=== PATIENT | female | born 1950 | race Caucasian/White ===

== ENCOUNTER → 2016-12-09 17:17 | Outpatient (CLI) | payer MEDICARE ==
[2016-10-05 12:00] VITALS: BMI 24.0
[~2016-12-09 17:17] MED LIST: ATIVAN2 MG PO; BAYER CHEWABLE81 MG PO; BENICAR20 MG PO; BRILINTA90 MG PO; CELEXA20 MG PO; CLARITIN 10 MG10 MG PO; COREG 3.1253.125 MG PO; FLUTICASONE PRO16 GM NASAL; HYDROCODON-ACE1 EAC9 PO; LIPITOR80 MG PO; PEPCID20 MG PO; PLAVIX75 MG PO; SAPHRIS SL; SAPHRIS5 MG SL; ULTRAM50 MG PO
== END | disposition home or self-care (01) ==
LOC: D.MAMMO 14:30
DX: Z12.31 Encounter for screening mammogram for malignant neoplasm of breast (principal)

== ENCOUNTER → 2017-01-21 16:51 | Outpatient (CLI) | payer MEDICARE ==
[2016-10-05 12:00] VITALS: BMI 24.0
== END | disposition home or self-care (01) ==
LOC: D.MAMMO 09:00
DX: R92.8 Other abnormal and inconclusive findings on diagnostic imaging of breast (principal)

== ENCOUNTER 2017-03-24 13:13 | Day surgery (SDC) | payer MEDICARE, MEDICAID ==
[~2017-03-24] VITALS: Ht 162.6 cm; Wt 68.2 kg
--- NOTE | ~2017-03-24 | OP ---
PATIENT NAME: VINI CHACON MEDICAL RECORD: [id number] :50 LOCATION:D.OPS ADMISSION DATE: SURGEON: TRU PEREZ DO DATE OF OPERATION: 03/24/2017 DATE OF PROCEDURE: 03/24/2017. PROCEDURE: Colonoscopy with hot forcep polypectomy. INDICATIONS FOR PROCEDURE: Screening colonoscopy, history of colon polyps, chronic constipation. SCOPE: Olympus video pediatric colonoscope. MEDICATIONS: Propofol 180 mg IV. WITHDRAWAL TIME: 15 minutes. ESTIMATED BLOOD LOSS: Minimal. COMPLICATIONS: None. FINDINGS: Informed consent was given. The patient was made comfortable with the above medication. After reaching an adequate level of sedation by slow IV push, the patient was placed on her left side. A digital rectal examination was performed and was normal. The endoscope was then advanced under direct visualization through the anus to the cecum with visualization of the appendiceal orifice and ileocecal valve. The scope was slowly withdrawn and the mucosa was carefully examined. In the transverse colon, there was a single benign appearing, sessile polyp measuring approximately 4-5 mm in size, which was removed in 1 piece with hot forceps. It was completely retrieved. Upon further withdrawal, there was a cluster of approximately 5 hyperplastic-appearing polyps in the sigmoid colon. These were removed with hot forceps as well. Scope was withdrawn back into the rectum and retroflexion was performed. There were no evidence of hemorrhoids. The scope was then withdrawn from the patient. The patient tolerated the procedure well and there were no complications. IMPRESSION: Polyps as described above, both in the transverse colon and sigmoid colon. All polyps were removed with hot forceps. PLAN AND RECOMMENDATIONS: 1. Discharge home when recovery parameters are met. 2. Continue current diet. 3. Continue current medications. 4. Follow up in the GI clinic as needed. 5. Follow up on biopsy specimen results. 6. Recall colonoscopy in 5 years unless pathology dictates otherwise. TRANSINT:[id number] Voice Confirmation ID: [id number] DOCUMENT ID: [id number] OPERATIVE REPORT [id number] VINI CHACON TRU PEREZ DO CC: [id number] DICTATION DATE: 03/24/17 1809 CLINICAL RESOURCE DIRECTOR: 03/25/[address] [facility] 03/24/17 [place] [address]
[2017-03-24 14:18] LABS: BASOPHILS 0.4 % (0-2); EOSINOPHILS 3.1 % (0-7); HEMATOCRIT 45.5 % (36.0-48.0); HEMOGLOBIN 15.2 g/dL (12-16); IMMATURE GRANULOCYTES 0.1 % (0-5); LYMPHOCYTES 32.6 % (15-50); MCH 33.4 pg (26.0-34.0); MCHC 33.4 g/dL (31.0-37.0); MONOCYTES 7.2 % (2-11); NEUTROPHILS 56.6 % (40-80); RBC 4.55 10x6/uL (4.00-5.40); RDW 14.2 % (11.5-14.5); WBC 7.7 10x3/uL (4.8-10.8)
[2017-03-24 14:19] LABS: PLATELET COUNT 179 10x3/uL (130-400)
[2017-03-24 14:34] LABS: ANION GAP 12.2 mmol/L (8-16); CALCIUM 9.7 mg/dL (8.5-10.1); CARBON DIOXIDE 26.8 mmol/L (21.0-32.0); CREATININE - SERUM 1.3 mg/dL (0.6-1.3)
[2017-03-24 14:40] VITALS: Ht 162.6 cm; Wt 68.2 kg
--- NOTE | 2017-03-24 18:24 | NUR ---
1809-RECD TO ROOM FROM GI LAB. RESP WITH EASE. IV PATENT. VOKATHRIN IN TO ROUND/REPORT. 1814-FULL LIQUIDS SERVED.
== END 2017-03-24 18:44 | disposition home or self-care (01) ==
LOC: D.OPS 13:13
PROVIDERS: Anesthesiology
DX: Z12.11 Encounter for screening for malignant neoplasm of colon (principal); D12.3 Benign neoplasm of transverse colon; D12.5 Benign neoplasm of sigmoid colon; K59.09 Other constipation

== ENCOUNTER 2017-07-26 11:48 | Outpatient (CLI) | payer MEDICARE, MEDICAID ==
--- NOTE | ~2017-07-26 | HEMODYNAMI ---
PATIENT:VINI CHACON MEDICAL RECORD: [id number] : 50 LOCATION:DJEREMIAS ADMISSION DATE: 07/26/17 Generatedon:07/26/201715:45 Patient name: VINI CHACON Patient #: [id number] SSN: DO B: 1950 Date of study: 07/26/2017 Page: Of Hemodynamic Procedure Report Patient Data Patient Demographics Procedure consent was obtained First Name: VINI Gender: Female Last Name: INES : 1950 Middle Initial: DUC Age: 67 year(s) Patient #: [id number] Race: Additional ID: [id number] Contact details [address]: [address] [place] [address] [place] State: [place] City: [place] Zip code: [address] Past Medical History History of disease Date Diagnosis Comments PVD Allergies: No known allergies Admission Admission Data Admission Date: 07/26/2017 Admission Time: 11:48 Lab Results Lab Result Date: 07/26/2017 Lab Result Time: 12:25 Biochemistry Name Units Result Min Max BUN mg/dl 23 --(----)-* 7 18 Creatinine mg/dl 1.5 --(----)-* 0.6 1.3 CBC Name Units Result Min Max Hematocrit % 45.3 --(-*--)-- 42 54 Hemoglobin g/dl 15.7 --(--*-)-- 13.5 17.5 Procedure Procedure Types Cath Procedure Miscellaneous Procedures Moderate Sedation up to 15 minutes Peripheral Cath Diagnostic Procedure Cath Peripheral Yqlgu-Frayarb-Eik-Off Procedure Description Procedure Date Procedure Date: 07/26/2017 Procedure Start Time: 15:24 Procedure End Time: 15:45 Procedure Staff Name Function Modesto Butler MD Performing Physician Any Lopez RT Scrub Lai Gomez RN Nurse Aba Matthews RT Monitor Kush Pavon RT Scrub Procedure Data Cath Procedure Fluoroscopy Diagnostic fluoroscopy Total fluoroscopy Time: 1.5 time: 1.5 min min Diagnostic fluoroscopy Total fluoroscopy dose: 77 dose: 77 mGy mGy Contrast Material Contrast Material Type Amount (ml) Isovue 300 91 Entry Location Entry Primary Successful Side Size Upsize Upsize Entry Closure Succes sful Closure Location (Fr) 1 (Fr) 2 (Fr) Remarks Device Remarks Femoral Left 5 Fr Exoseal artery Estimated blood loss: 5 ml Diagnostic catheters Device Type Used For End Catheter Placement Cordis Tempo 5Fr UF Procedure catheter Procedure Complications No complications Procedure Medications Medication Administration Route Dosage 0.9% NaCl I.V. 100 ml/hr Oxygen NC 2 l/min Heparin Flush Bag added to field 2 bags (1000units/500ml NS) Lidocaine 2% added to field 20 Versed I.V. 1 mg Fentanyl I.V. 50 mcg Versed I.V. 1 mg Hemodynamics Rest Heart Rate: 55 (bpm) Snapshots Pre Cath Intra NCS Post Cath Vital Signs Time Heart Resp SPO2 etCO2 [id number] NIBP (mmHg) Rhythm Pain Sedation Rate (ipm) (%) (mmHg) (mmHg) Status Level (bpm) 15:13:31 53 21 100 0 0 170/71(102) NSR 0 (11) 10(A) , No pain 15:18:52 54 17 100 0 0 152/70(100) NSR 0 (11) 10(A) , No pain 15:23:41 52 16 100 0 0 138/58(100) NSR 0 (11) 10(A) , No pain 15:28:26 51 14 99 0 0 122/54(80) NSR 0 (11) 9(A) , No pain 15:33:08 52 14 100 0 0 121/52(93) NSR 0 (11) 9(A) , No pain 15:37:47 51 19 99 0 0 112/48(83) NSR 0 (11) 9(A) , No pain 15:42:26 50 16 99 0 0 123/51(78) NSR 0 (11) 9(A) , No pain Medications Time Medication Route Dose Verified Delivered Reason Notes Effe ctiveness by by 15:13:03 0.9% NaCl I.V. 100 Lai Lai Per ml/hr Patricia ramirez RN RN 15:13:20 Oxygen NC 2 Lai Lai Per l/min Patricia ramirez RN RN 15:13:42 Heparin Flush added 2 Lai Lai used for Bag to bags Lorigan Lorigan procedure (1000units/500ml field RN RN NS) 15:14:09 Lidocaine 2% added 20ml Lai Lai for local to vial Lorigan Lorigan anesthetic field RN RN 15:24:14 Versed I.V. 1 mg Lai Lai for Lorigan Lorigan sedation RN RN 15:24:29 Fentanyl I.V. 50 Lai Lai for mcg Lorigan Lorigan sedation RN RN 15:25:17 Versed I.V. 1 mg Lai Lai for Lorigan Lorigan sedation RN bone density technician Log Time Note 14:56:51 Informed consent obtained and on chart 14:57:23 Diagnostic Cath status Elective 14:57:26 Aba Matthews RT(R) sent for patient. Start room use. 14:57:27 Time tracking: Regular hours 14:57:31 Plan of Care:Hemodynamics will remain stable., Cardiac rhythm will remain stable., Comfort level will be maintained., Respiratory function will remain adequate., Patient/ family verbilizes understanding of procedure., Procedure tolerated without complication., Recovers from procedure without complications.. 14:58:44 H&P Date Dictated: 07/22/2017 Within 30 days and on chart., H&P Addendum completed by physician on day of procedure. (MUST COMPLETE FOR ALL OUTPATIENTS). 15:02:59 Lab Result : Hemoglobin 15.7 g/dl 15:02:59 Lab Result : Hematocrit 45.3 % 15:02:59 Lab Result : BUN 23 mg/dl 15:02:59 Lab Result : Creatinine 1.5 mg/dl 15:03:14 Lab results completed and on chart. 15:03:42 Patient received from Pre/Post Procedure Room to CCL 1 Alert and oriented. Tansferred to table in Supine position. 15:03:42 Warm blankets applied, and brooklynn hugger turned on for patient comfort. 15:03:43 Correct patient and procedure confirmed by team. 15:03:44 ECG and BP/O2 sat monitors applied to patient. 15:12:30 Vital chart was started 15:13:03 0.9% NaCl 100 ml/hr I.V. was administered by Lai Gomez RN; Per physician; 15:13:20 Oxygen 2 l/min NC was administered by Lai Gomez RN; Per physician; 15:13:42 Heparin Flush Bag (1000units/500ml NS) 2 bags added to field was administered by Lai Gomez RN; used for procedure; 15:14:09 Lidocaine 2% 20ml vial added to field was administered by Lai Gomez RN; for local anesthetic; 15:17:25 Pre-procedure instructions explained to patient. 15:17:28 Pre-op teaching completed and patient verbalized understanding. 15:17:29 Family in waiting room. 15:17:31 Patient NPO since Midnight. 15:17:37 Patient allergic to No known allergies 15:17:40 Is the patient allergic to Iodine/contrast media? No. 15:17:42 Is patient on blood thinner?Yes 15:17:46 ACC The patient was administered the following blood thiners within the last 24 hours: ACCBrilinta 15:17:49 Patient diabetic? No. 15:17:58 Previous problem with sedation/anesthesia? No ? 15:18:00 Snore? Yes 15:18:01 Sleep apnea? No 15:18:02 Deviated septum? No 15:18:03 Opens mouth fully? Yes 15:18:04 Sticks out tongue? Yes 15:18:06 Airway obstruction? No ? 15:18:11 Dentures? Yes In tight 15:18:16 Pre procedure: right dorsailis pedis pulse 1+ Palpable, but thready & weak; easily obliterated 15:18:19 Patient pain scale 0/10 ?. 15:18:24 IV patent on arrival in left hand with 0.9% NaCl at [facility]. 15:18:31 Bilateral groins area was prepped with chlora-prep and draped in sterile fashion 15:18:34 Alarms reviewed by R. N. 15:18:34 Sharps counted by scrub and verified by R.N. 15:18:38 Tegaderm 4 x 4 opened to sterile field. 15:18:39 Acist Manifold opened to sterile field. 15:18:40 Acist Hand Control opened to sterile field. 15:18:41 Acist Syringe opened to sterile field. 15:18:41 Bag Decanter opened to sterile field. 15:18:46 Medline Cath Pack opened to sterile field. 15:18:47 Terumo 5Fr [place] Sheath opened to sterile field. 15:18:48 St Jose Roberto 260cm J .035 wire opened to sterile field. 15:19: Baseline sample Acquired. 15:19:05 Rhythm: sinus rhythm :: Full Disclosure recording started 15:: Physician arrived 15:: --------ALL STOP TIME OUT------ 15:19: Final Timeout: patient, procedure, and site verified with staff and physician. All members of the team are in agreement. 15:19:25 Bilateral groins site verified by team. 15:19:30 Physical assessment completed. ASA score P 2 - A patient with mild systemic disease as per Modesto Butler MD. 15::34 Sedation plan: IV Moderate Sedation Versed, Fentanyl 15::39 Zero performed for pressure channel P1 15:24:07 Procedure started. 15:24:14 Versed 1 mg I.V. was administered by Lai Gomez RN; for sedation; 15:24:23 Local anesthetic to left femerol artery with Lidocaine 2% by Modesto Butler MD.INITIAL ACCESS ONLY 15:24:29 Fentanyl 50 mcg I.V. was administered by Lai Gomez RN; for sedation; 15:24:46 A 5 Fr sheath was inserted into the Left Femoral artery 15:25:17 Versed 1 mg I.V. was administered by Lai Gomez RN; for sedation; 15:28:41 A Cordis Tempo 5Fr UF catheter was advanced over the wire and used for Procedure. 15:31:11 Abdominal angiogram w/ runoff was performed. 15:33:27 Right leg runoff performed. 15:38:19 Catheter removed. 15:38:28 Cordis 5Fr Exoseal opened to sterile field. 15:38:38 Sheath removed intact; hemostasis achieved with Exoseal to the Left Femoral artery. 15:38:40 Procedure ended.(Physican Out) 15:41:52 Fluoroscopy time 01.50 minutes. 15:41:55 Flurop Dose total: 77 15:41:55 Fluoroscopy dose: 77 mGy 15:42:00 Contrast amount:Isovue 300 91ml. 15:42:02 Sharps counted by scrub and verified by R.N. 15:42:10 Insertion/operative site no bleeding no hematoma. 15:42:13 Post-op/insertion site Left Femoral artery dressed using a 4 x 4 and Tegaderm. 15:42:18 Post left femerol artery:stable, soft, clean and dry 15:42:29 Post Procedure Pulses reassessed and unchanged 15:42:53 Post-procedure physical assessment completed. ASA score P 2 - A patient with mild systemic disease as per Modesto Butler MD. 15:42:56 Post procedure rhythm: unchanged. 15:42:58 Estimated blood loss: 5 ml 15:42:59 Post procedure instruction explained to patient.Patient verbalizes understanding. 15:43:00 Patient needs reinforcement of post procedure teaching. 15:43:17 Procedure type changed to Cath procedure, Miscellaneous Procedures, Moderate Sedation up to 15 minutes, Peripheral Cath Diagnostic Procedure, Cath Peripheral, Hvpfz-Ygnrwyb-Rub-Off 15:45:21 Procedure and supply charges have been captured, reviewed, submitted and are correct. 15:45:24 Procedure Complication : No complications 15:45:26 Vital chart was stopped 15:45:26 See physician's report for complete and final results. 15:45:29 Report given to Pre/Post Procedure Room. 15:45:31 Patient transfered to Pre/Post Procedure Room with Stretcher. 15:45:33 Procedure ended. 15:45:33 Full Disclosure recording stopped 15:45:39 End room use (Document Last) Device Usage Item Manufacture Quantity Catalog Hospital Part Current Minimal Lot# / Name Number Charge Number Stock Stock Emi mn# Code Tegaderm 1 [id number] [id number] 5 4 x 4 Acist Acist 1 41894 792247 260307 325795 5 Manifold Medical Systems Inc Acist Acist 1 77898 434472 074099 886980 5 Hand Medical Control Systems Inc Acist Acist 1 30376 997746 387754 220738 20 Syringe Medical Systems Inc Bag Microtek 1 2002S 883832 40146 104329 5 Dec[employer]iv[employer] Inc. Medline Cardinal 1 [id number] 680194 47024 322242 5 Cath Health Pack Terumo Terumo 1 [id number] 572939 261315 586997 [address] [facility] Jose Roberto 1 252517 906066 885167 864780 30 260cm J .035 wire Cordis Cardinal 1 [id number] 702444 800537 274857 10 [facility] Health 5Fr UF catheter Cordis Cardinal 1 EX500 910826 844488 673126 10 5Fr Health Exoseal Signature Audit Newman Stage Time Signature Unsigned Intra-Procedure 07/26/2017 Aba Matthews 3:45:56 PM RT(R) Signatures Monitor : Aba Matthews RT Signature : Date : Time : [address] [address]
[2017-07-26] MEDS ORDERED: CELEXA40 MG PO (12:11)
[2017-07-26] MEDS ORDERED: BRILINTA90 MG PO (12:11)
[2017-07-26] MEDS ORDERED: BENICAR20 MG PO (12:12)
[2017-07-26 12:20] VITALS: BP 132/53; BMI 25.8
[2017-07-26 12:30] LABS: BASOPHILS 0.4 % (0-2); EOSINOPHILS 4.6 % (0-7); HEMATOCRIT 45.3 % (36.0-48.0); HEMOGLOBIN 15.7 g/dL (12-16); IMMATURE GRANULOCYTES 0.6 % (0-5); LYMPHOCYTES 29.1 % (15-50); MCH 34.1 pg (26.0-34.0); MCHC 34.7 g/dL (31.0-37.0); MCV 98.5 fL (80.0-100.0); MEAN PLATELET VOLUME 10.7 fL (7.4-10.4); MONOCYTES 9.4 % (2-11); NEUTROPHILS 55.9 % (40-80); PLATELET COUNT 202 10x3/uL (130-400); RDW 15.4 % (11.5-14.5)
[2017-07-26 12:43] LABS: ANION GAP 12.5 mmol/L (8-16); CALCIUM 9.5 mg/dL (8.5-10.1); CARBON DIOXIDE 26.6 mmol/L (21.0-32.0); CREATININE - SERUM 1.5 mg/dL (0.6-1.3); POTASSIUM - SERUM 4.1 mmol/L (3.5-5.1)
--- NOTE | 2017-07-26 16:00 | NUR ---
1600 RECEIVED PT FROM CLINICAL TRIAL HEAD. PT IS DROWSY, DENIES ANY C/O PAIN OR NAUSEA. DRESSING TO LEFT GROIN IS CDI. RIGHT FOOT WARM, CAP REFILL IS BRISK. LEFT AKA. IV PATENT AND INFUSING PER ORDERS. PT INSTRUCTED ON BEDREST WITH HOB FLAT AND VERBALIZES UNDERSTANDING. MOTHER AT BEDSIDE, CALL LIGHT IN REACH.
--- NOTE | 2017-07-26 16:45 | NUR ---
1645 PO FLUIDS SERVED. DRESSING CDI, AREA SOFT AND NONTENDER. MOTHER AT BEDSIDE, CALL LIGHT IN REACH.
--- NOTE | 2017-07-26 17:00 | NUR ---
1700 PT DENIES MISSAEL C/O. DRESSING CDI TO LEFT GROIN. MOTHER AT BEDSIDE, CALL LIGHT IN REACH.
--- NOTE | 2017-07-26 17:22 | NUR ---
3741 PT DENIES ANY C/O. NO CHANGE IN ASSESSMENT. CONTINUE PLAN OF CARE.
--- NOTE | 2017-07-26 17:40 | NUR ---
1739 HOB ELEVATED 45 DEGREES, SANDWICH AND PO FLUIDS SERVED.
--- NOTE | 2017-07-26 18:18 | NUR ---
1800 PT HAS TOLERATED SANDWICH AND PO FLUIDS WITH NO C/O NAUSEA. IV DC'D WITH CATH INTACT. DRESSING CDI. PT DRESSING FOR DC TO HOME. 181 ASSISTED PT TO THE BATHROOM, PT VOIDED QS. DRESSING REMAINS CDI 1814 DC INSTRUCTIONS REVIEWED WITH PT AND HER MOTHER WHO VERBALIZE UNDERSTANDING. PT ESCORTED TO PRIVATE AUTO VIA WC BY NURSE WTIH MOTHER DRIVING HER HOME.
--- NOTE | 2017-07-28 14:50 | OP ---
PATIENT NAME: VINI CHACON MEDICAL RECORD: [id number] :50 LOCATION:D.CAT ADMISSION DATE: SURGEON: NIKOLE FUENTES MD DATE OF OPERATION: 07/26/2017 PROCEDURE: Right only aorto-fem runoff. CATHETER: A 5-Kyrgyz sheath. The procedure was well tolerated. The patient returned to [facility]. Sheath removed and ExoSeal device placed. FINDINGS: Right common iliac shows widely patent stent, right superficial femoral shows what appears to be severe diffuse stenosis up to the area of previous stenting. At the proximal one-third of the stent, this appears to be totally occluded. The distal vasculature appears at the popliteal which has some stenosis proximally but good 2-vessel runoff distally. IMPRESSION: Severe occlusion right superficial femoral artery. We will have the films reviewed by Dr. Li for possible percutaneous versus other intervention from his standpoint. TRANSINT:[id number] Voice Confirmation ID: [id number] DOCUMENT ID: [id number] NIKOLE FUENTES MD at 1450 CC: [id number] DICTATION DATE: 07/26/17 1549 Y[address] CRANE OPERATOR: 07/26/172053 DEP CLI 07/26/[address] [facility] [address] [place] [address]
== END 2017-07-26 18:15 | disposition home or self-care (01) ==
LOC: D.CATH 11:48
PROVIDERS: Internal Medicine Interventional Cardiology
DX: I70.211 Atherosclerosis of native arteries of extremities with intermittent claudication, right leg (principal); Z01.812 Encounter for preprocedural laboratory examination

== ENCOUNTER 2017-09-15 05:39 | Outpatient (CLI) | payer MEDICARE, MEDICAID ==
[~2017-09-15] VITALS: Ht 162.6 cm; Wt 68.2 kg
--- NOTE | ~2017-09-15 | HEMODYNAMI ---
PATIENT:VINI CHACON MEDICAL RECORD: [id number] : 50 LOCATION:WERO ADMISSION DATE: 09/15/17 Generatedon:09/15/20179:38 Patient name: VINI CHACON Patient #: [id number] SSN: DO B: 1950 Date of study: 09/15/2017 Page: Of Hemodynamic Procedure Report Patient Data Patient Demographics Procedure consent was obtained First Name: VINI Gender: Female Last Name: INES : 1950 Middle Initial: DUC Age: 67 year(s) Patient #: [id number] Race: Additional ID: [id number] Contact details Address: [facility] [employer] State: [place] City: [place] Zip code: [address] Past Medical History History of disease Date Diagnosis Comments PVD Allergies: No known allergies Admission Admission Data Admission Date: 09/15/2017 Admission Time: 5:39 Procedure Procedure Types Cath Procedure Peripheral Cath Diagnostic Procedure Miscellaneous Procedure Description Procedure Date Procedure Date: 09/15/2017 Procedure Start Time: 8:34 Procedure Staff Name Function Giuseppe Ayala MD Performing Physician David Jane RT Monitor Loraine Harper RT Scrub Germania Olvera RN Nurse Procedure Data Cath Procedure Fluoroscopy Diagnostic fluoroscopy Total fluoroscopy Time: 1.5 time: 1.5 min min Diagnostic fluoroscopy Total fluoroscopy dose: 55 dose: 55 mGy mGy Contrast Material Contrast Material Type Amount (ml) Isovue 300 15 Entry Location Entry Primary Successful Side Size Upsize Upsize Entry Closure Morrison ccessful Closure Location (Fr) 1 (Fr) 2 (Fr) Remarks Device Remarks Femoral Right 5 Fr Manual artery Compression Procedure Medications Medication Administration Route Dosage Nitroglycerin IC/IA I.A. 200 Hemodynamics Rest Heart Rate: 51 (bpm) Snapshots Pre Cath Intra NCS Post Cath Vital Signs Time Heart Resp SPO2 etCO2 NIBP (mmHg) Rhythm Pain Sedation Rate (ipm) (%) (mmHg) Status Level (bpm) 8:11:41 52 8 100 34 181/75(142) NSR 0 (11) 10(A) , No pain 8:16:19 49 14 100 28.7 181/63(109) NSR 0 (11) 10(A) , No pain 8:20:42 65 13 96 37.1 142/51(99) NSR 0 (11) 10(A) , No pain 8:25:08 56 15 100 15.1 122/47(92) NSR 0 (11) 10(A) , No pain 8:29:30 55 14 100 15.9 110/36(78) NSR 0 (11) 10(A) , No pain 8:33:48 54 13 100 15.9 104/38(81) NSR 0 (11) 10(A) , No pain 8:38:47 54 13 100 19.6 Measuring NSR 0 (11) 10(A) , No pain 8:39:12 55 13 100 15.9 99/51(80) NSR 0 (11) 10(A) , No pain 8:43:26 57 14 100 14.3 96/41(68) NSR 0 (11) 10(A) , No pain 8:47:40 56 14 100 12.8 102/41(67) NSR 0 (11) 10(A) , No pain 8:51:54 60 14 100 17.4 116/45(79) NSR 0 (11) 10(A) , No pain 8:56:14 58 14 100 13.6 105/36(74) NSR 0 (11) 10(A) , No pain 9:00:28 57 21 99 11.3 91/39(75) NSR 0 (11) 10(A) , No pain 9:04:33 59 4 99 10.6 105/51(71) NSR 0 (11) 10(A) , No pain 9:08:48 61 12 100 9.8 113/44(72) NSR 0 (11) 10(A) , No pain 9:13:05 60 14 99 8.3 95/39(70) NSR 0 (11) 10(A) , No pain 9:17:15 62 12 99 12.8 102/45(66) NSR 0 (11) 10(A) , No pain 9:21:29 62 12 100 13.6 100/42(72) NSR 0 (11) 10(A) , No pain 9:26:29 58 22 100 10.6 Measuring NSR 0 (11) 10(A) , No pain 9:26:39 57 18 100 11.3 120/59(84) NSR 0 (11) 10(A) , No pain 9:31:38 55 18 100 28 Measuring NSR 0 (11) 10(A) , No pain 9:31:46 56 18 100 28 144/66(98) NSR 0 (11) 10(A) , No pain 9:36:02 0 No Cuff NSR 0 (11) 10(A) , No pain Medications Time Medication Route Dose Verified Delivered Reason Notes Effectiven ess by by 8:56:49 Nitroglycerin I.A. 200MCG Giuseppe Chin IC/Jamie Bhardwaj MD MD Procedure Log Time Note 7:59:33 Germania Olvera RN sent for patient. Start room use. 7:59:44 Time tracking: Regular hours 7:59:48 Plan of Care:Hemodynamics will remain stable., Cardiac rhythm will remain stable., Comfort level will be maintained., Respiratory function will remain adequate., Patient/ family verbilizes understanding of procedure., Procedure tolerated without complication., Recovers from procedure without complications.. 7:59:53 Patient received from Outpatients to [facility] 3 Alert and oriented. Tansferred to table in Supine position. 8:00:04 Correct patient and procedure confirmed by team. 8:00:09 Signed procedure consent form obtained from patient. 8:00:10 ECG and BP/O2 sat monitors applied to patient. 8:00:13 Full Disclosure recording started 8:00:13 8:01:36 H&P Date Dictated: 09/15/2017 Within 30 days and on chart.. 8:01:37 Pre-procedure instructions explained to patient. 8:01:38 Pre-op teaching completed and patient verbalized understanding. 8:01:41 8:01:57 SEE ANESTHESIA NOTE FOR PRE PROCEDURE TIVA 8:10:19 Vital chart was started 8:10:20 Baseline sample Acquired. 8:14:22 Pre procedure: right dorsailis pedis pulse None 8:14:29 Pre procedure: right posterior tibial pulse Doppler 8:14:34 Alarms reviewed by R. N. 8:14:35 Sharps counted by scrub and verified by R.N. 8:14:43 Patient pain scale 0/10 NO PAIN. 8:14:49 IV patent on arrival in left hand with 0.9% NaCl at [facility]. 8:18:42 Use device set IR Diagnostic 8:18:43 Acist Syringe opened to sterile field. 8:18:43 Acist Hand Control opened to sterile field. 8:18:44 Acist Manifold opened to sterile field. 8:18:44 Bag Decanter opened to sterile field. 8:18:45 Sterile Angiographic Pack opened to sterile field. 8:32:44 Family in patients room. 8:32:47 Patient NPO since Midnight. 8:33:02 Right groin area was prepped with chlora-prep and draped in sterile fashion 8:33:11 Physician arrived 8:33:12 --------ALL STOP TIME OUT------ 8:33:13 Final Timeout: patient, procedure, and site verified with staff and physician. All members of the team are in agreement. 8:33:15 Right groin site verified by team. 8:33:21 Sedation plan: TIVA Medication:Propofol 8:33:36 Baseline sample Acquired. 8:34:23 Procedure started. 8:34:35 Local anesthetic to right femoral artery with Lidocaine 1% by Giuseppe Ayala MD.INITIAL ACCESS ONLY 8:35:01 A 5 Fr sheath was inserted into the Right Femoral artery 8:48:15 Terumo 5FR ANGLED 65CM glide catheter opened to sterile field. 8:48:15 Micropuncture VSI 4FR kit opened to sterile field. 8:48:16 Terumo 5Fr [place] Sheath opened to sterile field. 8:48:17 Cook DOC .035 guide wire opened to sterile field. 8:49:41 Manan ANAYA 180 guide wire opened to sterile field. 8:56:49 Nitroglycerin IC/IA 200MCG I.A. was administered by Giuseppe Ayala MD; ; 9:03:55 Procedure ended.(Physican Out) 9:04:05 Sheath removed intact; hemostasis achieved with Manual Compression to the Right Femoral artery. 9:06:29 Fluoroscopy time 01.50 minutes. 9:06:32 Flurop Dose total: 55 9:06:32 Fluoroscopy dose: 55 mGy 9:06:43 Contrast amount:Isovue 300 15ml. 9:06:45 Sharps counted by scrub and verified by R.N. 9:06:48 Insertion/operative site no bleeding no hematoma. 9:06:52 Post-op/insertion site Right Femoral artery dressed using a 4 x 4 and Tegaderm. 9:06:56 Post right femoral artery:stable 9:06:58 Post Procedure Pulses reassessed and unchanged 9:07:13 Post procedure instruction explained to patient.Patient verbalizes understanding. 9:07:15 Procedure and supply charges have been captured, reviewed, submitted and are correct. 9:37:23 Report given to Outpatients. 9:37:27 Patient transfered to Outpatients with Stretcher. 9:38:32 Vital chart was stopped Device Usage Item Name Manufacture Quantity Catalog Hospital Part Current Minima l Lot# / Number Charge Number Stock Stock Serial# Code Acist Syringe Acist 1 36646 [id number] 255235 655197 20 Medical Systems Inc Acist Hand Acist 1 61598 596295 909331 661076 5 Control Medical Systems Inc Acist Acist 1 87220 509363 432681 515650 5 Manifold Medical Systems Inc Bag Decanter Microtek 1 2002S 941537 03418 778584 5 Medical Inc. Sterile Cardinal 1 [id number] 084678 955990 5 Angiographic Health Pack Terumo 5FR Terumo 1 [id number] 718230 490618 5 ANGLED 65CM glide catheter Micropuncture VSI VASCULAR 1 7266V 512716 157961 5 VSI 4FR kit SOLUTIONS Terumo 5Fr Terumo 1 [id number] 651922 230193 432797 40 [place] Sheath Cook DOC .035 [facility] 1 [id number] 127386 175388 5 1089921 guide wire Cook [facility] 1 [id number] 031910 007234 5 [id number] 180 guide wire Signature Audit [place] Stage Time Signature Unsigned Intra-Procedure 09/15/2017 David 9:38:28 AM Lucinda RT (R) (CV) Signatures Monitor : David Signature : Lucinda RT Date : Time : [id number] [place] [address]
[~2017-09-15 05:39] MED LIST changes: +CELEXA40 MG PO
[2017-09-15 06:19] LABS: BASOPHILS 0.4 % (0-2); EOSINOPHILS 4.5 % (0-7); HEMATOCRIT 43.4 % (36.0-48.0); HEMOGLOBIN 14.5 g/dL (12-16); IMMATURE GRANULOCYTES 0.5 % (0-5); LYMPHOCYTES 29.4 % (15-50); MCH 33.7 pg (26.0-34.0); MCHC 33.4 g/dL (31.0-37.0); MCV 100.9 fL (80.0-100.0); MEAN PLATELET VOLUME 11.5 fL (7.4-10.4); MONOCYTES 8.3 % (2-11); NEUTROPHILS 56.9 % (40-80); PLATELET COUNT 214 10x3/uL (130-400); RDW 14.4 % (11.5-14.5); WBC 8.2 10x3/uL (4.8-10.8)
[2017-09-15 06:24] VITALS: BP 155/65; Ht 162.6 cm; Wt 68.2 kg
[2017-09-15 06:33] LABS: APTT 24.9 SECONDS (22.8-39.4); INR 0.91 (0.85-1.17); PROTIME 12.1 SECONDS (11.6-15.0)
[2017-09-15 06:35] LABS: ANION GAP 15.7 mmol/L (8-16); CALCIUM 9.7 mg/dL (8.5-10.1); CREATININE - SERUM 1.3 mg/dL (0.6-1.3); POTASSIUM - SERUM 3.7 mmol/L (3.5-5.1)
== END 2017-09-15 15:45 | disposition home or self-care (01) ==
LOC: D.OPS 05:39 → D.RAD 13:00 → D.OPS 13:00
PROVIDERS: General Practice
DX: I70.201 Unspecified atherosclerosis of native arteries of extremities, right leg (principal); I70.92 Chronic total occlusion of artery of the extremities; F17.200 Nicotine dependence, unspecified, uncomplicated; Z89.512 Acquired absence of left leg below knee; Z01.812 Encounter for preprocedural laboratory examination

== ENCOUNTER → 2017-09-21 12:16 | Outpatient (CLI) | payer MEDICARE, MEDICAID ==
[2017-09-15 06:24] VITALS: BMI 25.8
== END | disposition home or self-care (01) ==
LOC: D.CT 12:16
DX: I73.9 Peripheral vascular disease, unspecified (principal)

== ENCOUNTER 2017-09-29 09:08 | Outpatient (CLI) | payer MEDICARE, MEDICAID ==
[~2017-09-29] VITALS: Ht 162.6 cm; Wt 68.2 kg
--- NOTE | ~2017-09-29 | HEMODYNAMI ---
PATIENT:VINI CHACON MEDICAL RECORD: [id number] : 50 LOCATION:[facility] ADMISSION DATE: 09/29/17 Generatedon:09/29/201717:16 Patient name: VINI CHACON Patient #: [id number] SSN: DO B: 1950 Date of study: 09/29/2017 Page: Of Hemodynamic Procedure Report Patient Data Patient Demographics Procedure consent was obtained First Name: VINI Gender: Female Last Name: INES : 1950 Middle Initial: DUC Age: 67 year(s) Patient #: [id number] Race: Additional ID: [id number] Contact details Address: [facility] State: [place] City: [place] Zip code: [address] Past Medical History History of disease Date Diagnosis Comments PVD Allergies: No known allergies Admission Admission Data Admission Date: 09/29/2017 Admission Time: 9:08 Procedure Procedure Types Cath Procedure Peripheral Cath Diagnostic Procedure Miscellaneous Procedure Description Procedure Date Procedure Date: 09/29/2017 Procedure Start Time: 14:30 Procedure Staff Name Function Giuseppe Ayala MD Performing Physician David Jane RT Monitor Loraine Harper RT Scrub Germania Olvera RN Nurse Edilson Nuno MD Additional personnel Procedure Data Cath Procedure Fluoroscopy Diagnostic fluoroscopy Total fluoroscopy Time: time: 19.3 min 19.3 min Diagnostic fluoroscopy Total fluoroscopy dose: 457 dose: 457 mGy mGy Entry Location Entry Primary Successful Side Size Upsize Upsize Entry Closure Succes sful Closure Location (Fr) 1 (Fr) 2 (Fr) Remarks Device Remarks Brachial Left 5 Fr 6 Fr artery Long Diagnostic catheters Device Type Used For End Catheter Placement Merit Impress KA 2 5Fr 40CM catheter Merit ULTRA BOLUS FLUSH 5Fr 65CM catheter Procedure Medications Medication Administration Route Dosage Heparin Flush Bag added to field 2 bags (1000units/500ml NS) Heparin Flush Bag added to field 1 bags (1000units/500ml NS) Lidocaine 1% added to field 20 Heparin Bolus I.V. 5000 units Hemodynamics Rest Heart Rate: 54 (bpm) Snapshots Pre Cath Intra NCS Post Cath Vital Signs Time Heart Resp SPO2 etCO2 NIBP (mmHg) Rhythm Pain Sedation Rate (ipm) (%) (mmHg) Status Level (bpm) 14:06:59 54 25 100 27.1 Measuring NSR 0 (11) 10(A) , No pain 14:07:13 52 33 100 24.1 179/63(96) NSR 0 (11) 10(A) , No pain 14:11:41 63 23 100 22.6 167/69(98) NSR 0 (11) 10(A) , No pain 14:16:04 70 9 100 12.8 139/62(96) NSR 0 (11) 10(A) , No pain 14:20:24 59 11 100 30.2 138/58(85) NSR 0 (11) 10(A) , No pain 14:24:44 58 17 100 31.7 134/52(86) NSR 0 (11) 10(A) , No pain 14:29:04 57 11 100 30.9 131/55(79) NSR 0 (11) 10(A) , No pain 14:33:26 56 12 100 31.6 127/47(68) NSR 0 (11) 10(A) , No pain 14:37:48 59 11 100 30.9 124/33(36) NSR 0 (11) 10(A) , No pain 14:42:08 54 21 99 31.7 129/42(90) NSR 0 (11) 10(A) , No pain 14:46:29 56 11 99 30.9 131/51(90) NSR 0 (11) 10(A) , No pain 14:50:49 55 17 99 28.6 124/48(95) NSR 0 (11) 10(A) , No pain 14:55:09 56 16 100 32.4 115/45(78) NSR 0 (11) 10(A) , No pain 14:59:13 56 13 99 32.4 107/56(83) NSR 0 (11) 10(A) , No pain 15:03:22 56 17 99 38.5 122/55(95) NSR 0 (11) 10(A) , No pain 15:07:41 58 11 98 33.9 122/46(80) NSR 0 (11) 10(A) , No pain 15:11:57 57 10 98 35.4 114/53(80) NSR 0 (11) 10(A) , No pain 15:16:13 56 11 98 32.4 121/47(84) NSR 0 (11) 10(A) , No pain 15:20:29 58 13 98 35.4 118/53(76) NSR 0 (11) 10(A) , No pain 15:24:43 59 16 99 33.9 129/58(93) NSR 0 (11) 10(A) , No pain 15:29:01 58 11 99 33.9 139/56(81) NSR 0 (11) 10(A) , No pain 15:33:21 60 11 99 33.1 147/59(118) NSR 0 (11) 10(A) , No pain 15:37:45 59 10 98 33.9 139/51(93) NSR 0 (11) 10(A) , No pain 15:42:07 58 10 98 33.2 142/53(86) NSR 0 (11) 10(A) , No pain 15:46:32 58 10 98 34.6 133/51(100) NSR 0 (11) 10(A) , No pain 15:50:47 58 11 98 33.9 143/62(93) NSR 0 (11) 10(A) , No pain 15:55:10 57 11 98 34.6 130/55(97) NSR 0 (11) 10(A) , No pain 15:59:28 58 10 98 34.7 133/54(85) NSR 0 (11) 10(A) , No pain 16:03:48 57 11 99 33.9 147/53(97) NSR 0 (11) 10(A) , No pain 16:08:12 58 12 99 32.4 143/59(99) NSR 0 (11) 10(A) , No pain 16:12:39 57 12 98 31.7 158/47(92) NSR 0 (11) 10(A) , No pain 16:17:07 57 12 99 32.4 174/60(100) NSR 0 (11) 10(A) , No pain 16:21:39 57 11 98 32.4 141/54(95) NSR 0 (11) 10(A) , No pain 16:25:59 57 11 98 33.2 147/56(96) NSR 0 (11) 10(A) , No pain 16:30:24 58 10 98 33.9 149/58(89) NSR 0 (11) 10(A) , No pain 16:34:36 56 11 99 34.6 133/63(102) NSR 0 (11) 10(A) , No pain 16:39:35 63 12 30.9 Measuring NSR 0 (11) 10(A) , No pain 16:39:55 62 14 29.4 155/67(90) NSR 0 (11) 10(A) , No pain 16:44:17 62 13 100 23.4 150/73(132) NSR 0 (11) 10(A) , No pain 16:49:16 63 17 100 26.4 Measuring NSR 0 (11) 10(A) , No pain 16:49:18 63 17 100 26.3 140/97(114) NSR 0 (11) 10(A) , No pain 16:53:34 61 12 100 26.4 150/72(114) NSR 0 (11) 10(A) , No pain 16:58:33 62 12 30.1 Measuring NSR 0 (11) 10(A) , No pain 16:58:58 65 12 100 24.9 160/66(100) NSR 0 (11) 10(A) , No pain 17:03:28 59 12 100 28.6 148/53(101) NSR 0 (11) 10(A) , No pain 17:08:27 59 18 100 24.8 Measuring NSR 0 (11) 10(A) , No pain 17:08:40 59 17 100 27.1 157/68(103) NSR 0 (11) 10(A) , No pain 17:13:00 60 16 100 18.1 136/80(116) NSR 0 (11) 10(A) , No pain Medications Time Medication Route Dose Verified Delivered Reason Notes Ef fectiveness by by 14:06:12 Heparin Flush added 2 Bag to bags (1000units/500ml field NS) 14:06:28 Heparin Flush added 1 Bag to bags (1000units/500ml field NS) 14:06:50 Lidocaine 1% added 20ml Germania Chin to vial Wade Ayala MD field RN 15:20:07 Heparin Bolus I.V. 5000 Giuseppe Hanody for units Wade Ayala RN antiplatelet therapy Procedure Log Time Note 13:48:36 David Jane RT (R) (CV) sent for patient. Start room use. 13:48:40 BRENTON HERE FROM ANESTHESIA 13:48:48 Time tracking: Regular hours 13:48:54 Plan of Care:Hemodynamics will remain stable., Cardiac rhythm will remain stable., Comfort level will be maintained., Respiratory function will remain adequate., Patient/ family verbilizes understanding of procedure., Procedure tolerated without complication., Recovers from procedure without complications.. 13:49:02 Patient received from CVICU to IR Alert and oriented. Tansferred to table in Supine position. 13:49:04 Correct patient and procedure confirmed by team. 13:49:05 Warm blankets applied, and brooklynn hugger turned on for patient comfort. 13:49:11 Signed procedure consent form obtained from patient. 13:49:13 ECG and BP/O2 sat monitors applied to patient. 13:50:07 SEE ANESTHESIA NOTE FOR PRE PROCEDURE TIVA 13:52:07 Use device set IR Diagnostic 13:52:10 Sterile Angiographic Pack opened to sterile field. 13:52:10 Bag Decanter (2002S) opened to sterile field. 13:52:11 ACIST Manifold (12010) opened to sterile field. 13:52:12 ACIST Hand Control (47481) opened to sterile field. 13:52:15 ACIST Syringe (07720) opened to sterile field. 13:52:17 TUBING Contrast Injection High Pressure (ETR882U) opened to sterile field. 13:52:18 TUBING Contrast Injection High Pressure (BPK007Y) opened to sterile field. 13:57:58 Left Arm area was prepped with chlora-prep and draped in sterile fashion 13:58:01 Sharps counted by scrub and verified by R.N. 13:58:02 Alarms reviewed by R. N. 14:05:09 Vital chart was started 14:05:10 Baseline sample Acquired. 14:06:12 Heparin Flush Bag (1000units/500ml NS) 2 bags added to field was administered by ; ; 14:06:28 Heparin Flush Bag (1000units/500ml NS) 1 bags added to field was administered by ; ; 14:06:50 Lidocaine 1% 20ml vial added to field was administered by Giuseppe Ayala MD; ; 14:29:27 Physician arrived 14:: --------ALL STOP TIME OUT------ 14:: Final Timeout: patient, procedure, and site verified with staff and physician. All members of the team are in agreement. 14:29:32 Left Arm site verified by team. 14:29:37 Sedation plan: TIVA Medication:Propofol 14:30:02 Procedure started. 14:30:02 Full Disclosure recording started 14:30:08 Local anesthetic to left arm with Lidocaine 1% by Giuseppe Ayala MD.INITIAL ACCESS ONLY 14:30:19 A 5 Fr sheath was inserted into the Left Brachial artery 14:30:24 SHEATH 5FR Crosby (ZJS191) opened to sterile field. 14:30:24 Cook DOC .035 guide wire opened to sterile field. 14:30:25 Micropuncture VSI 4FR kit opened to sterile field. 14:32:15 Terumo 5FR ANGLED 100CM glide catheter opened to sterile field. 14:40:38 Cook ANAYA 260 guide wire opened to sterile field. 14:44:45 A Merit Impress KA 2 5Fr 40CM catheter was advanced over the wire and used for . 14:44:46 Terumo ANGLE 180L glide wire opened to sterile field. 14:47:05 Terumo 5FR ANGLED 65CM glide catheter opened to sterile field. 14:47:07 TORQUE DEVICE PLASTIC .038 ( TD01) opened to sterile field. 14:51:18 Terumo ANGLE 260cm glide wire opened to sterile field. 14:51:30 A Merit ULTRA BOLUS FLUSH 5Fr 65CM catheter was advanced over the wire and used for . 15:09:53 Cordis 5Fr Crosby Destination sheath opened to sterile field. 15:11:59 Trailblazer 0.035 catheter opened to sterile field. 15:16:[address] 260 .035 glide wire opened to sterile field. 15:20:07 Heparin Bolus 5000 units I.V. was administered by Germania Olvera RN; for antiplatelet therapy; 15:22:34 Cook RAABE 6FR. 90cm guide sheath opened to sterile field. 15:22:42 Sheath upsized to a 6 Fr Long. 15:25:09 CHOICE PT Extra Support J 300cm guide wire ([id number]) opened to sterile field. 15:36:38 CXI SUPPORT .035 135 CM STR catheter opened to sterile field. 15:43:48 INFLATOR Merit BasixCompak (JI4685) opened to sterile field. 15:44:12 Inflation number: 1 A Saber 3.0 X 200 X 150 balloon was prepped and advanced across the Undefined1, then inflated 15:52:51 Inflation number: 2 A IN.PACT Admiral 4 x 150 x 130 DCB balloon ([id number]) was prepped and advanced across the Undefined1, then inflated 15:59:41 Timer 1 started at 3:59 PM, stopped at 3:59 PM, duration 00:00:02 sec. 16:01:48 Inflation number: 3 A IN.PACT Admiral 4 x 150 x 130 DCB balloon ([id number]) was prepped and advanced across the Undefined1, then inflated to 0 YUMI for 0:00 (min:sec). 16:08:14 Inflation number: 4 A IN.PACT Admiral 4 x 80 x 130 DCB Balloon ([id number]) was prepped and advanced across the Undefined1, then inflated to 0 YUMI for 0:00 (min:sec). 16:19:46 Inflation number: 5 A Saber 3.0 X 4 X 150 balloon was prepped and advanced across the Undefined1, then inflated 16:31:44 Procedure ended.(Physican Out) 16:32:13 Fluoroscopy time 19.30 minutes. 16:32:18 Fluoroscopy dose: 457 mGy 16:32:18 Flurop Dose total: 457 16:32:21 Sharps counted by scrub and verified by R.N. 16:32:33 SEE ANESHESIA NOTE FOR POST PROCEDURE TIVA 16:32:44 Post-op/insertion site Left Brachial artery dressed using a 4 x 4 and Tegaderm. 16:32:49 Post right brachial artery:stable 17:15:20 Post procedure: right dorsailis pedis pulse Doppler. 17:15:25 Post procedure: right posterior tibial pulse Doppler. 17:15:26 Procedure and supply charges have been captured, reviewed, submitted and are correct. 17:15:28 Report given to Outpatients. 17:15:35 Patient transfered to Outpatients with Bed. 17:16:06 Vital chart was stopped Intervention Summary Intervention Notes Time ActionType Lesion and Equipment Used Action# Pressure Duration Attributes 15:44:12 Inflate Undefined1 Saber 3.0 X 1 0 00:00 balloon 200 X 150 balloon 15:52:51 Inflate Undefined1 IN.PACT 2 0 00:00 balloon Admiral 4 x 150 x 130 DCB balloon ([id number]) 16:01:48 Inflate Undefined1 IN.PACT 3 0 00:00 balloon Admiral 4 x 150 x 130 DCB balloon ([id number]) 16:08:14 Inflate Undefined1 IN.PACT 4 0 00:00 balloon Admiral 4 x 80 x 130 DCB Balloon ([id number]) 16:19:46 Inflate Undefined1 Saber 3.0 X 4 5 0 00:00 balloon X 150 balloon Device Usage Item Name Manufacture Quantity Catalog Number Hospital Part Current M inimal Lot# / Charge Number Stock Stock Serial# Code Sterile Cardinal 1 [id number] 607274 838187 5 Angiographic Health Pack Bag Decanter Microtek 1 468193 08473 591322 5 () Medical Inc. ACIST Manifold Acist 1 91224 589398 444293 868782 5 (31756) Medical Systems Inc ACIST Hand Acist 1 08848 452330 947560 562782 5 Control Medical (66612) Systems Inc ACIST Syringe Acist 1 89919 186917 867677 735880 2 0 (51394) Medical Systems Inc TUBING Merit 2 [id number] 913296 476201 332863 5 Contrast Medical Injection High Pressure (YWK584V) SHEATH 5FR Terumo 1 HKP661 612089 674456 792810 4 0 Crosby (XTJ393) Retail Derivatives Trader DOC .035 Retail Derivatives Trader Medical 1 V27718 498513 963370 5 4234033 guide wire Micropuncture VSI VASCULAR 1 7266V 139337 263173 5 VSI 4FR kit SOLUTIONS Terumo 5FR Terumo 1 CG508 970818 00828 415297 4 ANGLED 100CM glide catheter Cook ANAYA 260 Cook Medical 1 E53153 790933 792995 5 2669372 guide wire Merit Impress Merit 1 55611NT0 256146 723050 5 KA 2 5Fr 40CM Medical catheter Terumo ANGLE Terumo 1 NG2765 422937 966185 339848 5 180L glide wire Terumo 5FR Terumo 1 CG507 477707 734957 5 ANGLED 65CM glide catheter TORQUE DEVICE Vaughn 1 TD01 720745 688916 391964 5 PLASTIC .038 ( Scientific TD01) Terumo ANGLE Terumo 1 MU0185 570972 907879 421098 5 260cm glide wire Merit ULTRA Merit 1 [id number]-YQ 413513 457115 5 BOLUS FLUSH Medical 5Fr 65CM catheter Cordis 5Fr Cardinal 1 01-65040 956006 24955 607682 5 Crosby Health Destination sheath Trailblazer Medtronic 1 ASC-035-135 036198 59520 076867 5 0.035 catheter Cook Cook Medical 1 E20442 962374 370209 850636 5 388[address] 260 .035 glide wire Cook RAABE Cook Medical 1 B49371 668445 527044 5 6FR. 90cm guide sheath CHOICE PT Vaughn 1 [id number] 036804 195171 784482 5 [id number] Extra Support Scientific J 300cm guide wire (6106742Y9) CXI SUPPORT Cook Medical 1 U31013 647773 610806 463097 5 3579235 .035 135 CM STR catheter INFLATOR Merit Merit 1 UT3061 565404 822004 957442 1 5 [facility] Mobile Sorcery (ZF5844) Saber 3.0 X Cardinal 1 [id number] 025161 129467 5 200 X 150 Health balloon IN.PACT Medtronic 2 [id number] 396920 1826784 469504 5 [id number] Admiral 4 x [id number] 150 x 130 DCB balloon ([id number]) IN.PACT Medtronic 1 [id number] 157961 013058 646181 5 [id number] Admiral 4 x 80 x 130 DCB Balloon ([id number]) Saber 3.0 X 4 Cardinal 1 [id number] 805310 884434 5 X 150 balloon Health Signature Audit [place] Stage Time Signature Unsigned Intra-Procedure 09/29/2017 David 5:16:01 PM Lucinda RT (R) (CV) Signatures Monitor : David Signature : Lucinda RT Date : Time : [place] [id number] [place] [address]
[2017-09-29 10:47] LABS: BASOPHILS 0.3 % (0-2); EOSINOPHILS 4.1 % (0-7); HEMATOCRIT 44.8 % (36.0-48.0); HEMOGLOBIN 15.2 g/dL (12-16); IMMATURE GRANULOCYTES 0.5 % (0-5); LYMPHOCYTES 23.1 % (15-50); MCH 33.9 pg (26.0-34.0); MCHC 33.9 g/dL (31.0-37.0); MEAN PLATELET VOLUME 11.6 fL (7.4-10.4); MONOCYTES 9.1 % (2-11); NEUTROPHILS 62.9 % (40-80); PLATELET COUNT 225 10x3/uL (130-400); RBC 4.48 10x6/uL (4.00-5.40); WBC 8.9 10x3/uL (4.8-10.8)
[2017-09-29 10:53] LABS: ANION GAP 13.8 mmol/L (8-16); APTT 25.9 SECONDS (22.8-39.4); CALCIUM 9.2 mg/dL (8.5-10.1); CREATININE - SERUM 1.2 mg/dL (0.6-1.3); INR 0.89 (0.85-1.17); POTASSIUM - SERUM 3.8 mmol/L (3.5-5.1); PROTIME 11.7 SECONDS (11.6-15.0)
[2017-09-29] MEDS ORDERED: SAPHRIS5 MG SL (11:49)
[2017-09-29 11:54] VITALS: BP 154/56; Ht 162.6 cm; Wt 68.2 kg
== END 2017-09-29 20:05 | disposition home or self-care (01) ==
LOC: D.RAD 09:08 → D.OPS 09:08 → D.RAD 13:00 → D.OPS 20:05
PROVIDERS: General Practice
DX: I70.201 Unspecified atherosclerosis of native arteries of extremities, right leg (principal); I70.92 Chronic total occlusion of artery of the extremities; F17.200 Nicotine dependence, unspecified, uncomplicated; Z01.812 Encounter for preprocedural laboratory examination

== ENCOUNTER 2018-03-30 11:07 | Observation (INO) | payer MEDICARE, MEDICAID ==
[~2018-03-30] VITALS: Ht 162.6 cm; Wt 68.0 kg
[2018-03-30 11:48] LABS: HEMATOCRIT 35.5 % (36.0-48.0); HEMOGLOBIN 11.5 g/dL (12-16); MCH 29.6 pg (26.0-34.0); MCHC 32.4 g/dL (31.0-37.0); MCV 91.3 fL (80.0-100.0); MEAN PLATELET VOLUME 10.8 fL (7.4-10.4); PLATELET COUNT 414 10x3/uL (130-400); RBC 3.89 10x6/uL (4.00-5.40); RDW 16.4 % (11.5-14.5); WBC 21.6 10x3/uL (4.8-10.8)
[2018-03-30 11:57] LABS: ALBUMIN 3.4 g/dL (3.4-5.0); ANION GAP 16.5 mmol/L (8-16); BILIRUBIN - TOTAL 0.42 mg/dL (0.2-1.3); CALCIUM 9.8 mg/dL (8.5-10.1); CARBON DIOXIDE 24.2 mmol/L (21.0-32.0); CREATININE - SERUM 1.9 mg/dL (0.6-1.3); POTASSIUM - SERUM 3.7 mmol/L (3.5-5.1); PROTEIN - SERUM 7.6 g/dL (6.4-8.2)
[2018-03-30 12:04] LABS: EOSINOPHILS 1 % (0-7); LYMPHOCYTES 23 % (15-50); MONOCYTES 2 % (2-11); NEUTROPHILS 74 % (40-80); PLATELET ESTIMATE INCREASED
[2018-03-30 12:18] LABS: APPEARANCE HAZY (CLEAR); BILIRUBIN NEGATIVE (NEGATIVE); COLOR YELLOW (YELLOW); GLUCOSE NEGATIVE (NEGATIVE); KETONE NEGATIVE (NEGATIVE); NITRITE NEGATIVE (NEGATIVE); PROTEIN NEGATIVE (NEGATIVE); UROBILINOGEN NORMAL (NORMAL)
[2018-03-30 13:56] VITALS: BP 191/065
[2018-03-30 17:17] VITALS: BP 126/61; BMI 25.8
[2018-03-30 20:00] VITALS: BP 139/55
[2018-03-31 00:11] VITALS: BP 101/40
[2018-03-31 04:07] VITALS: BP 103/36
[2018-03-31 05:42] LABS: BASOPHILS 0.2 % (0-2); EOSINOPHILS 1.1 % (0-7); HEMATOCRIT 31.4 % (36.0-48.0); HEMOGLOBIN 9.9 g/dL (12-16); IMMATURE GRANULOCYTES 0.2 % (0-5); LYMPHOCYTES 20.3 % (15-50); MCH 28.9 pg (26.0-34.0); MCHC 31.5 g/dL (31.0-37.0); MCV 91.5 fL (80.0-100.0); MEAN PLATELET VOLUME 10.6 fL (7.4-10.4); MONOCYTES 9.4 % (2-11); NEUTROPHILS 68.8 % (40-80); RBC 3.43 10x6/uL (4.00-5.40); RDW 16.6 % (11.5-14.5); WBC 17.6 10x3/uL (4.8-10.8)
[2018-03-31 05:44] LABS: PLATELET COUNT 328 10x3/uL (130-400)
[2018-03-31 06:08] LABS: ANION GAP 11.5 mmol/L (8-16); CALCIUM 9.1 mg/dL (8.5-10.1); CARBON DIOXIDE 26.4 mmol/L (21.0-32.0); CREATININE - SERUM 1.2 mg/dL (0.6-1.3); MAGNESIUM - SERUM 2.4 mg/dL (1.8-2.4); PHOSPHOROUS 2.6 mg/dL (2.5-4.9); POTASSIUM - SERUM 3.9 mmol/L (3.5-5.1)
[2018-03-31 09:07] VITALS: BP 125/48
[2018-03-31 10:21] VITALS: BMI 25.7
[2018-03-31 12:33] VITALS: BP 108/34
[2018-03-31 12:42] VITALS: Ht 162.6 cm; Wt 68.0 kg
== END 2018-03-31 14:30 | disposition home or self-care (01) ==
LOC: D.ER 11:07 → D.MS 14:18 → D.EDHOLD 14:18 → D.MS 14:56 → OBSVTIME 17:24 → D.MS 03-31 14:30
PROVIDERS: Family Medicine
DX: N17.9 Acute kidney failure, unspecified (principal); E86.0 Dehydration; K59.00 Constipation, unspecified; R19.7 Diarrhea, unspecified; D64.9 Anemia, unspecified; I25.10 Atherosclerotic heart disease of native coronary artery without angina pectoris; Z95.820 Peripheral vascular angioplasty status with implants and grafts

== ENCOUNTER 2018-04-19 12:06 | Emergency (ER) | payer MEDICARE, MEDICAID ==
[~2018-04-19] VITALS: Ht 162.6 cm; Wt 68.2 kg
[2018-04-19 12:58] VITALS: Ht 162.6 cm; Wt 68.2 kg
[2018-04-19 13:23] LABS: BASOPHILS 0.2 % (0-2); EOSINOPHILS 0.8 % (0-7); HEMATOCRIT 39.2 % (36.0-48.0); HEMOGLOBIN 12.5 g/dL (12-16); IMMATURE GRANULOCYTES 0.3 % (0-5); LYMPHOCYTES 22.1 % (15-50); MCH 29.4 pg (26.0-34.0); MCHC 31.9 g/dL (31.0-37.0); MCV 92.2 fL (80.0-100.0); MEAN PLATELET VOLUME 10.5 fL (7.4-10.4); MONOCYTES 9.2 % (2-11); NEUTROPHILS 67.4 % (40-80); RBC 4.25 10x6/uL (4.00-5.40); RDW 15.7 % (11.5-14.5); WBC 17.3 10x3/uL (4.8-10.8)
[2018-04-19 13:25] LABS: PLATELET COUNT 405 10x3/uL (130-400)
[2018-04-19 13:54] LABS: ALBUMIN 3.7 g/dL (3.4-5.0); ALKALINE PHOSPHATASE 147 U/L (46-116); ALT (SGPT) 13 U/L (10-68); BILIRUBIN - TOTAL 0.31 mg/dL (0.2-1.3); CALC OSMOLALITY 278 mosm/kg (275-300); CALCIUM 9.7 mg/dL (8.5-10.1); CARBON DIOXIDE 27.8 mmol/L (21.0-32.0); CHLORIDE - SERUM 97 mmol/L (98-107); CREATININE - SERUM 1.8 mg/dL (0.6-1.3); GLUCOSE 161 mg/dL (74-106); PROTEIN - SERUM 8.1 g/dL (6.4-8.2); SODIUM 136 mmol/L (136-145); UREA NITROGEN 23 mg/dL (7-18); eGFR NON AFRICAN AMERICAN 30 mL/min (90-120)
[2018-04-19 13:57] LABS: AMYLASE - SERUM 31 U/L (25-115); LIPASE 136 U/L (73-393); TROPONIN-I < 0.017 ng/mL (0.000-0.060)
[2018-04-19 20:03] LABS: APPEARANCE CLEAR (CLEAR); COLOR YELLOW (YELLOW); NITRITE NEGATIVE (NEGATIVE)
[2018-04-19 20:04] LABS: BILIRUBIN NEGATIVE (NEGATIVE); GLUCOSE NEGATIVE (NEGATIVE); KETONE NEGATIVE (NEGATIVE); PROTEIN NEGATIVE (NEGATIVE); UROBILINOGEN NORMAL (NORMAL)
[2018-04-19] MEDS ORDERED: ZOFRAN ODT4 MG/UDTAB PO (21:06)
[2018-04-19] MEDS ORDERED: CIPRO500 MG PO (21:06)
[2018-04-19] MEDS ORDERED: FLAGYL500 MG PO (21:06)
[2018-04-19 21:20] VITALS: BP 139/83
== END 2018-04-19 21:20 | disposition home or self-care (01) ==
LOC: D.ER 12:06
PROVIDERS: Family Medicine
DX: K52.9 Noninfective gastroenteritis and colitis, unspecified (principal); R11.2 Nausea with vomiting, unspecified

== ENCOUNTER 2018-08-28 11:56 | Inpatient (IN) | payer MEDICARE, MEDICAID ==
[~2018-08-28] VITALS: Ht 162.6 cm; Wt 52.2 kg
--- NOTE | ~2018-08-28 | MORECARE ---
CASE MANAGEMENT DISCHARGE SUMMARY PATIENT: VINI CHACON UNIT: [id number] ADM DATE: 08/28/18 AGE: 68 : 50 SEX: F ROOM/BED: D.2207 AUTHOR: QIAN ROPER PHYSICIAN: REFERRING PHYSICIAN: SHINE FLORES MD DATE OF SERVICE: 09/05/18 Discharge Plan Patient Name: VINI CHACON Facility: [facility]:[place] : 1950 Planned Disposition: Home Anticipated Discharge Date: Discharge Date: 08/31/2018 Expected LOS: 0 Initial Reviewer: [email or web address] Initial Review Date: 08/28/2018 Generated: 09/05/18 10:23 am Comments DCP- Discharge Planning Updated by [email or web address]: Sylvia Monetmontez on 08/31/18 3:[address] Patient Name: VINI CHACON Encounter No: [id number] : 1950 Primary Insurance: [employer] Anticipated DC Date: Planned Disposition: Home External Planned Provider: : DCP follow-up note: Patient in agreement with discharge plan. She declines home health at this time. States she is going to be with her mother. House calls will be following up with her and I instructed her to let them know if she would like home health. No changes to plan. Case management will follow and assist as needed. Sylvia Greenberg DCP- Discharge Planning Updated by [email or web address]: Pamela Edwards on 08/30/18 11:[address] Patient Name: VINI CHACON Admission Status: ER Accout number: [id number] Admission Date: 08-28-2018 : 1950 Admission Diagnosis: Attending: PIPO ROY Current LOS: 2 Anticipated DC Date: Planned Disposition: Home Primary Insurance: [facility] MEDICARE SOLUTIONS Discharge Planning Comments: CM MET WITH PATIENT TO ASSESS DISCHARGE PLANNING NEEDS. PATIENT STATED THAT SHE LIVES WITH HER MOTHER AND PLANS TO RETURN THERE AT DISCHARGE . SHE STATED THAT SHE IS INDEPENDENT WITH HER CARE AND IF SHE NEEDS HELP HER MOTHER HELPS HER. SHE HAS A BEDSIDE COMMODE, SHOWER CHAIR AND WHEELCHAIR. HER HOME IS SAFE TO RETURN. SHE IS CURRENTLY NOT USING HOME HEALTH AND UNSURE IF SHE WILL NEED IT WHEN SHE GOES HOME. CM WILL CONTINUE TO FOLLOW AND ASSIST WITH DC PLANNING NEEDED Label Pinker: Pamela Edwards DCPIA - Discharge Planning Initial Assessment Updated by [email or web address]: Pamela Edwards on 08/30/18 12:06 pm * Is the patient Alert and Oriented? Yes * How many steps to enter\exit or inside your home? * PCP GRACIELA * Pharmacy [facility] * Preadmission Environment Home with Family * ADLs Independent * Equipment Bedside Commode Shower Chair Wheelchair * List name and contact numbers for known caregivers / representatives who currently or will assist patient after discharge: TULIO CAMPOS (MOTHER) [phone] * Verbal permission to speak to the caregivers and representatives has been obtained from the patient. N/A * Community resources currently utilized None * Additional services required to return to the preadmission environment? No * Can the patient safely return to the preadmission environment? Yes * Has this patient been hospitalized within the prior 30 days at any hospital? No Coverage Notice Reviewer: [email or web address] Arron Greenberg Notice Issued Date-Time: 08/31/2018 16:24 Notice Type: IM Discharge Notice Notice Delivered To: Patient Relationship to Patient: Self Distance Learning Coordinator Name: Delivery Method: HAND - Hand Delivered Gail Days: Prior Verbal Notification: Recipient Understood Notice: Yes Recipient Signature: Yes Med Rec Note Co-signed by Attending: Coverage Notice Comment: Last DP export: 08/31/18 3:19 p Patient Name: VINI CHACON Page 05883 at 0923 All edits/amendments must be made on the electronic document DICTATION DATE: 09/05/18922 SOLDERING MACHINE OPERATOR: KIM 09/05/18922 RPT#: [id number] DC DATE:08/31/18 STATUS: DIS IN [facility] [address] [place] [address] END OF REPORT
--- NOTE | ~2018-08-28 | MORECARE ---
CASE MANAGEMENT DISCHARGE SUMMARY PATIENT: VINI CHACON UNIT: [id number] ADM DATE: 08/28/18 AGE: 68 : 50 SEX: F ROOM/BED: D.2207 AUTHOR: JACQUELINDOC PHYSICIAN: REFERRING PHYSICIAN: PIPO ROY MD DATE OF SERVICE: 08/30/18 Discharge Plan Patient Name: VINI CHACON Facility: [facility]:[place] : 1950 Planned Disposition: Home Anticipated Discharge Date: Discharge Date: Expected LOS: Initial Reviewer: [email or web address] Initial Review Date: 08/28/2018 Generated: 08/30/18 1:13 pm Comments DCP- Discharge Planning Updated by [email or web address]: Pamela Edwards on 08/30/18 11:[address] Patient Name: VINI CHACON Admission Status: ER Accout number: [id number] Admission Date: 08-28-2018 : 1950 Admission Diagnosis: Attending: PIPO ROY Current LOS: 2 Anticipated DC Date: Planned Disposition: Home Primary Insurance: [facility] MEDICARE SOLUTIONS Discharge Planning Comments: CM MET WITH PATIENT TO ASSESS DISCHARGE PLANNING NEEDS. PATIENT STATED THAT SHE LIVES WITH HER MOTHER AND PLANS TO RETURN THERE AT DISCHARGE . SHE STATED THAT SHE IS INDEPENDENT WITH HER CARE AND IF SHE NEEDS HELP HER MOTHER HELPS HER. SHE HAS A BEDSIDE COMMODE, SHOWER CHAIR AND WHEELCHAIR. HER HOME IS SAFE TO RETURN. SHE IS CURRENTLY NOT USING HOME HEALTH AND UNSURE IF SHE WILL NEED IT WHEN SHE GOES HOME. CM WILL CONTINUE TO FOLLOW AND ASSIST WITH DC PLANNING NEEDED Senior Fire Protection Engineer: Pamela Edwards DCPIA - Discharge Planning Initial Assessment Updated by [email or web address]: Pamela Edwards on 08/30/18 12:06 pm * Is the patient Alert and Oriented? Yes * How many steps to enter\exit or inside your home? * PCP GRACIELA * Pharmacy [facility] * Preadmission Environment Home with Family * ADLs Independent * Equipment Bedside Commode Shower Chair Wheelchair * List name and contact numbers for known caregivers / representatives who currently or will assist patient after discharge: TULIO CAMPOS (MOTHER) [phone] * Verbal permission to speak to the caregivers and representatives has been obtained from the patient. N/A * Community resources currently utilized None * Additional services required to return to the preadmission environment? No * Can the patient safely return to the preadmission environment? Yes * Has this patient been hospitalized within the prior 30 days at any hospital? No Patient Name: VINI CHACON Page 80359 at 1213 All edits/amendments must be made on the electronic document DICTATION DATE: 08/30/181212 INSURANCE VERIFICATION SPECIALIST: KIM 08/30/18 1213 RPT#: [id number] DC DATE: STATUS: ADM IN [facility] [address] [place] [address] END OF REPORT
--- NOTE | ~2018-08-28 | MORECARE ---
CASE MANAGEMENT DISCHARGE SUMMARY PATIENT: VINI CHACON UNIT: [id number] ADM DATE: 08/28/18 AGE: 68 : 50 SEX: F ROOM/BED: D.2207 AUTHOR: QIAN ROPER PHYSICIAN: REFERRING PHYSICIAN: PIPO ROY MD DATE OF SERVICE: 08/31/18 Discharge Plan Patient Name: VINI CHACON Facility: [facility]:[place] : 1950 Planned Disposition: Home Anticipated Discharge Date: Discharge Date: Expected LOS: Initial Reviewer: [email or web address] Initial Review Date: 08/28/2018 Generated: 08/31/18 5:19 pm Comments DCP- Discharge Planning Updated by [email or web address]: Sylvia Dionicio on 08/31/18 3:[address] Patient Name: VINI CHACON Encounter No: [id number] : 1950 Primary Insurance: [employer] Anticipated DC Date: Planned Disposition: Home External Planned Provider: : DCP follow-up note: Patient in agreement with discharge plan. She declines home health at this time. States she is going to be with her mother. House calls will be following up with her and I instructed her to let them know if she would like home health. No changes to plan. Case management will follow and assist as needed. Sylvia Greenberg DCP- Discharge Planning Updated by [email or web address]: Pamela Edwards on 08/30/18 11:[address] Patient Name: VINI CHACON Admission Status: ER Accout number: [id number] Admission Date: 08-28-2018 : 1950 Admission Diagnosis: Attending: PIPO ROY Current LOS: 2 Anticipated DC Date: Planned Disposition: Home Primary Insurance: [employer] MEDICARE SOLUTIONS Discharge Planning Comments: CM MET WITH PATIENT TO ASSESS DISCHARGE PLANNING NEEDS. PATIENT STATED THAT SHE LIVES WITH HER MOTHER AND PLANS TO RETURN THERE AT DISCHARGE . SHE STATED THAT SHE IS INDEPENDENT WITH HER CARE AND IF SHE NEEDS HELP HER MOTHER HELPS HER. SHE HAS A BEDSIDE COMMODE, SHOWER CHAIR AND WHEELCHAIR. HER HOME IS SAFE TO RETURN. SHE IS CURRENTLY NOT USING HOME HEALTH AND UNSURE IF SHE WILL NEED IT WHEN SHE GOES HOME. CM WILL CONTINUE TO FOLLOW AND ASSIST WITH DC PLANNING NEEDED Blanker Operator: Pamela Edwards DCPIA - Discharge Planning Initial Assessment Updated by [id number]: Pamela Edwards on 08/30/18 12:06 pm * Is the patient Alert and Oriented? Yes * How many steps to enter\exit or inside your home? * PCP GRACIELA * Pharmacy [facility] * Preadmission Environment Home with Family * ADLs Independent * Equipment Bedside Commode Shower Chair Wheelchair * List name and contact numbers for known caregivers / representatives who currently or will assist patient after discharge: TULIO CAMPOS (MOTHER) [phone] * Verbal permission to speak to the caregivers and representatives has been obtained from the patient. N/A * Community resources currently utilized None * Additional services required to return to the preadmission environment? No * Can the patient safely return to the preadmission environment? Yes * Has this patient been hospitalized within the prior 30 days at any hospital? No Last DP export: 08/30/18 11:13 a Patient Name: VINI CHACON Page 82796 at 1619 All edits/amendments must be made on the electronic document DICTATION DATE: 08/31/181617 PLASTIC INJECTION MOLD MAKER: KIM 08/31/181617 RPT#: [id number] DC DATE: STATUS: ADM IN [facility] [address] [place] [address] END OF REPORT
[~2018-08-28 11:56] MED LIST changes: +CIPRO500 MG PO; +FLAGYL500 MG PO; +ZOFRAN ODT4 MG/UDTAB PO
[2018-08-28 12:43] LABS: HEMATOCRIT 34.1 % (36.0-48.0); HEMOGLOBIN 10.8 g/dL (12-16); MCH 25.4 pg (26.0-34.0); MCHC 31.7 g/dL (31.0-37.0); MCV 80.2 fL (80.0-100.0); MEAN PLATELET VOLUME 10.7 fL (7.4-10.4); PLATELET COUNT 368 10x3/uL (130-400); RBC 4.25 10x6/uL (4.00-5.40); RDW 17.8 % (11.5-14.5); WBC 27.4 10x3/uL (4.8-10.8)
[2018-08-28 12:59] LABS: ALBUMIN 3.5 g/dL (3.4-5.0); ALKALINE PHOSPHATASE 149 U/L (46-116); ALT (SGPT) 182 U/L (10-68); BILIRUBIN - TOTAL 0.31 mg/dL (0.2-1.3); CALC OSMOLALITY 290 mosm/kg (275-300); CALCIUM 9.7 mg/dL (8.5-10.1); CARBON DIOXIDE 27.9 mmol/L (21.0-32.0); CHLORIDE - SERUM 97 mmol/L (98-107); CREATININE - SERUM 2.9 mg/dL (0.6-1.3); GLUCOSE 147 mg/dL (74-106); POTASSIUM - SERUM 3.5 mmol/L (3.5-5.1); PROTEIN - SERUM 8.3 g/dL (6.4-8.2); SODIUM 138 mmol/L (136-145); UREA NITROGEN 47 mg/dL (7-18); eGFR NON AFRICAN AMERICAN 17 mL/min (90-120)
[2018-08-28 13:08] LABS: LYMPHOCYTES 23 % (15-50); MONOCYTES 3 % (2-11); NEUTROPHILS 71 % (40-80); PLATELET ESTIMATE INCREASED; PLATELET MORPHOLOGY NORMAL PLT MORPH
[2018-08-28 13:10] VITALS: BP 131/40
[2018-08-28 13:12] LABS: CREATINE KINASE 1976 UL (21-215); TROPONIN-I < 0.017 ng/mL (0.000-0.060)
[2018-08-28 13:41] LABS: APPEARANCE CLEAR (CLEAR); BILIRUBIN NEGATIVE (NEGATIVE); COLOR YELLOW (YELLOW); GLUCOSE NEGATIVE (NEGATIVE); KETONE NEGATIVE (NEGATIVE); NITRITE NEGATIVE (NEGATIVE); PROTEIN TRACE mg/dL (NEGATIVE); UROBILINOGEN NORMAL (NORMAL)
[2018-08-28 13:42] LABS: BACTERIA FEW /hpf (NONE SEEN); EPITHELIAL CELLS OCC /hpf (0-5); RED CELLS - URINE OCC /hpf (0-5); WHITE CELLS - URINE 0-5 /hpf (0-5)
[2018-08-28 14:30] VITALS: BP 142/65
[2018-08-28 14:54] LABS: UDS - AMPHET NEGATIVE QUAL (NEGATIVE); UDS - BARB NEGATIVE QUAL (NEGATIVE); UDS - BENZO NEGATIVE QUAL (NEGATIVE); UDS - COCAINE NEGATIVE QUAL (NEGATIVE); UDS - OPIATE NEGATIVE QUAL (NEGATIVE); UDS - PCP NEGATIVE QUAL (NEGATIVE); UDS - THC NEGATIVE QUAL (NEGATIVE)
[2018-08-28 15:36] VITALS: BP 145/60
[2018-08-28 17:28] VITALS: BP 155/56
[2018-08-28 20:00] VITALS: BP 182/54
[2018-08-29 01:00] VITALS: BP 112/49
[2018-08-29 05:24] VITALS: BP 113/48
[2018-08-29 06:42] LABS: BASOPHILS 0 % (0-2); EOSINOPHILS 0 % (0-7); HEMATOCRIT 29.1 % (36.0-48.0); HEMOGLOBIN 9.2 g/dL (12-16); IMMATURE GRANULOCYTES 0.4 % (0-5); LYMPHOCYTES 5.7 % (15-50); MCH 25.3 pg (26.0-34.0); MCHC 31.6 g/dL (31.0-37.0); MCV 79.9 fL (80.0-100.0); MEAN PLATELET VOLUME 10.7 fL (7.4-10.4); MONOCYTES 0.4 % (2-11); NEUTROPHILS 93.5 % (40-80); PLATELET COUNT 307 10x3/uL (130-400); RBC 3.64 10x6/uL (4.00-5.40); RDW 17.6 % (11.5-14.5); WBC 24.7 10x3/uL (4.8-10.8)
[2018-08-29 06:55] LABS: ALBUMIN 2.7 g/dL (3.4-5.0); ANION GAP 13.6 mmol/L (8-16); BILIRUBIN - TOTAL 0.25 mg/dL (0.2-1.3); CALCIUM 8.8 mg/dL (8.5-10.1); CARBON DIOXIDE 25.8 mmol/L (21.0-32.0); MAGNESIUM - SERUM 1.7 mg/dL (1.8-2.4); PHOSPHOROUS 4.5 mg/dL (2.5-4.9); POTASSIUM - SERUM 3.4 mmol/L (3.5-5.1); PROTEIN - SERUM 6.8 g/dL (6.4-8.2)
[2018-08-29 06:57] LABS: CREATININE - SERUM 1.9 mg/dL (0.6-1.3)
[2018-08-29 08:12] VITALS: BP 121/46
[2018-08-29 12:10] VITALS: Ht 162.6 cm; Wt 52.2 kg
[2018-08-29 13:04] VITALS: BP 138/43
[2018-08-29 16:33] VITALS: BP 94/61
[2018-08-29 20:00] VITALS: BP 134/48
[2018-08-30] VITALS: BP 118/36
[2018-08-30 04:00] VITALS: BP 133/42
[2018-08-30 06:11] LABS: BASOPHILS 0 % (0-2); EOSINOPHILS 0 % (0-7); HEMATOCRIT 27.7 % (36.0-48.0); HEMOGLOBIN 8.6 g/dL (12-16); IMMATURE GRANULOCYTES 0.3 % (0-5); MCH 24.9 pg (26.0-34.0); MCV 80.3 fL (80.0-100.0); MEAN PLATELET VOLUME 11.1 fL (7.4-10.4); NEUTROPHILS 90.7 % (40-80); PLATELET COUNT 253 10x3/uL (130-400); RBC 3.45 10x6/uL (4.00-5.40); RDW 17.9 % (11.5-14.5); WBC 24.7 10x3/uL (4.8-10.8)
[2018-08-30 06:48] LABS: % SATURATION 4 % (15-55); IRON 13 ug/dl (35-150); TOTAL IRON BIND CAPACITY 312 ug/dl (260-445); UNSAT IRON BIND CAPACITY 299 ug/dl (150-375)
[2018-08-30 07:02] LABS: ALBUMIN 2.7 g/dL (3.4-5.0); ANION GAP 17.4 mmol/L (8-16); BILIRUBIN - TOTAL 0.14 mg/dL (0.2-1.3); CALCIUM 8.6 mg/dL (8.5-10.1); CARBON DIOXIDE 22.9 mmol/L (21.0-32.0); MAGNESIUM - SERUM 1.9 mg/dL (1.8-2.4); POTASSIUM - SERUM 4.3 mmol/L (3.5-5.1); PROTEIN - SERUM 6.3 g/dL (6.4-8.2)
[2018-08-30 07:03] LABS: PHOSPHOROUS 2.5 mg/dL (2.5-4.9)
[2018-08-30 08:30] VITALS: BP 128/50
[2018-08-30 12:45] VITALS: BP 133/50
[2018-08-30 16:14] LABS: GLUCOSE - CSF 210 MG/DL (40-75); PROTEIN - CSF 65 MG/DL (12-60)
[2018-08-30 16:22] VITALS: BP 151/53
[2018-08-30 16:47] LABS: APPEARANCE - CSF CLEAR; RBC - CSF 0 cmm (0-0)
[2018-08-30 20:41] VITALS: BP 136/51
[2018-08-31 04:52] VITALS: BP 117/52
[2018-08-31 05:31] LABS: BASOPHILS 0 % (0-2); EOSINOPHILS 0 % (0-7); HEMATOCRIT 26.6 % (36.0-48.0); HEMOGLOBIN 8.4 g/dL (12-16); IMMATURE GRANULOCYTES 0.4 % (0-5); LYMPHOCYTES 6.4 % (15-50); MCHC 31.6 g/dL (31.0-37.0); MCV 79.2 fL (80.0-100.0); MEAN PLATELET VOLUME 11.4 fL (7.4-10.4); MONOCYTES 2.8 % (2-11); NEUTROPHILS 90.4 % (40-80); PLATELET COUNT 261 10x3/uL (130-400); RBC 3.36 10x6/uL (4.00-5.40); RDW 17.7 % (11.5-14.5)
[2018-08-31 05:41] LABS: WBC 16.6 10x3/uL (4.8-10.8)
[2018-08-31 06:01] LABS: ALBUMIN 2.4 g/dL (3.4-5.0); ANION GAP 13.2 mmol/L (8-16); BILIRUBIN - TOTAL 0.18 mg/dL (0.2-1.3); CALCIUM 8.4 mg/dL (8.5-10.1); CARBON DIOXIDE 24.8 mmol/L (21.0-32.0); CREATININE - SERUM 1.7 mg/dL (0.6-1.3); MAGNESIUM - SERUM 1.8 mg/dL (1.8-2.4); PHOSPHOROUS 3.1 mg/dL (2.5-4.9); PROTEIN - SERUM 6.1 g/dL (6.4-8.2)
[2018-08-31 09:06] VITALS: BP 124/67
[2018-08-31 09:19] LABS: FOLATE (FOLIC ACID) - SERUM 5.9 ng/mL (>3.0)
[2018-08-31 10:20] LABS: HEPATITIS C ANTIBODY <0.1 S/CO RAT (0.0-0.9)
[2018-08-31 13:14] VITALS: BP 158/56
[2018-08-31] MEDS ORDERED: VIBRAMYCIN 100100 MG PO (15:45)
[2018-08-31] MEDS ORDERED: LEVOFLOXACIN500 MG PO (15:45)
[2018-08-31] MEDS ORDERED: MEDROL DOSE PACK4 MG PO (15:49)
[2018-08-31 16:35] VITALS: BP 162/61
[2018-09-01 14:24] LABS: EHRLICHIA CHAFF IGG Negative (Neg:<1:64); EHRLICHIA CHAFF IGM Negative (Neg:<1:20); HGE IGG TITER Negative (Neg:<1:64); HGE IGM TITER Negative (Neg:<1:20)
[2018-09-02 12:18] LABS: F. TULARENSIS - IGG Negative (()); F. TULARENSIS - IGM Negative (())
[2018-09-02 19:10] LABS: HSV 1 DNA (PCR) Negative (Negative); HSV 2 DNA (PCR) Negative (Negative)
[2018-09-05 16:13] LABS: ENTEROVIRUS RT-PCR Negative (Negative)
== END 2018-08-31 18:26 | disposition home or self-care (01) | DRG 871 ==
LOC: D.ER 11:56 → D.MS 15:05 → D.EDHOLD 15:05 → D.MS 16:17
PROVIDERS: Family Medicine; General Practice; Internal Medicine Nephrology
PROC: 009U3ZX Drainage of Spinal Canal, Percutaneous Approach, Diagnostic (ICD-10-PCS; principal; 2018-08-30)
PROC: B01B1ZZ Fluoroscopy of Spinal Cord using Low Osmolar Contrast (ICD-10-PCS; 2018-08-30)
DX: A41.9 Sepsis, unspecified organism (principal); G93.41 Metabolic encephalopathy; N17.9 Acute kidney failure, unspecified; F17.203 Nicotine dependence unspecified, with withdrawal; F31.30 Bipolar disorder, current episode depressed, mild or moderate severity, unspecified; N39.0 Urinary tract infection, site not specified; E78.5 Hyperlipidemia, unspecified; I10 Essential (primary) hypertension; I25.10 Atherosclerotic heart disease of native coronary artery without angina pectoris; I73.9 Peripheral vascular disease, unspecified; R74.8 Abnormal levels of other serum enzymes; Z95.1 Presence of aortocoronary bypass graft

== ENCOUNTER 2018-09-03 12:37 | Emergency (ER) | payer MEDICARE, MEDICAID ==
[~2018-09-03] VITALS: Ht 162.6 cm; Wt 59.0 kg
[~2018-09-03 12:37] MED LIST changes: +LEVOFLOXACIN500 MG PO; +MEDROL DOSE PACK4 MG PO; +VIBRAMYCIN 100100 MG PO
[2018-09-03 12:46] VITALS: Ht 162.6 cm; Wt 59.0 kg
[2018-09-03 14:57] LABS: BASOPHILS 0.1 % (0-2); EOSINOPHILS 1.8 % (0-7); HEMATOCRIT 27.8 % (36.0-48.0); HEMOGLOBIN 8.8 g/dL (12-16); IMMATURE GRANULOCYTES 1.1 % (0-5); LYMPHOCYTES 18.3 % (15-50); MCH 25.1 pg (26.0-34.0); MCHC 31.7 g/dL (31.0-37.0); MCV 79.4 fL (80.0-100.0); MONOCYTES 8.4 % (2-11); NEUTROPHILS 70.3 % (40-80); PLATELET COUNT 240 10x3/uL (130-400); RDW 18.1 % (11.5-14.5); WBC 19.2 10x3/uL (4.8-10.8)
[2018-09-03 15:08] LABS: ANION GAP 13.6 mmol/L (8-16); CALCIUM 8.1 mg/dL (8.5-10.1); CARBON DIOXIDE 24.7 mmol/L (21.0-32.0); CREATININE - SERUM 1.3 mg/dL (0.6-1.3); POTASSIUM - SERUM 3.3 mmol/L (3.5-5.1)
[2018-09-03 16:22] LABS: APPEARANCE CLEAR (CLEAR); BACTERIA FEW /hpf (NONE SEEN); BILIRUBIN NEGATIVE (NEGATIVE); COLOR YELLOW (YELLOW); GLUCOSE 250 mg/dL (NEGATIVE); KETONE NEGATIVE (NEGATIVE); NITRITE NEGATIVE (NEGATIVE); PROTEIN NEGATIVE (NEGATIVE); RED CELLS - URINE 0-5 /hpf (0-5); UROBILINOGEN NORMAL (NORMAL)
[2018-09-03] MEDS ORDERED: ULTRAM50 MG PO (16:36)
[2018-09-03 17:08] VITALS: BP 118/50
== END 2018-09-03 17:10 | disposition home or self-care (01) ==
LOC: D.ER 12:37
PROVIDERS: Family Medicine
DX: R53.81 Other malaise (principal); D72.829 Elevated white blood cell count, unspecified; A93.8 Other specified arthropod-borne viral fevers; N39.0 Urinary tract infection, site not specified; Z86.73 Personal history of transient ischemic attack (TIA), and cerebral infarction without residual deficits

== ENCOUNTER → 2018-11-17 15:37 | Outpatient (CLI) | payer MEDICARE, MEDICAID ==
[2018-09-03 12:46] VITALS: BMI 19.7
== END | disposition home or self-care (01) ==
LOC: D.CT 15:37
DX: I73.9 Peripheral vascular disease, unspecified (principal); M79.605 Pain in left leg; M79.604 Pain in right leg

== ENCOUNTER 2018-12-14 07:40 | Outpatient (CLI) | payer MEDICARE, MEDICAID ==
[~2018-12-14] VITALS: Ht 162.6 cm; Wt 68.2 kg
--- NOTE | ~2018-12-14 | HEMODYNAMI ---
PATIENT:VINI CHACON MEDICAL RECORD: [id number] : 50 LOCATION:[facility] ADMISSION DATE: 12/14/18 Generatedon:12/14/201812:24 Patient name: VINI CHACON Patient #: [id number] SSN: DO B: 1950 Date of study: 12/14/2018 Page: Of Hemodynamic Procedure Report Patient Data Patient Demographics Procedure consent was obtained First Name: VINI Gender: Female Last Name: INES : 1950 Middle Initial: DUC Age: 68 year(s) Patient #: [id number] Race: Additional ID: [id number] Contact details Address: [address] State: [place] City: [place] Zip code: [address] Past Medical History History of disease Date Diagnosis Comments PVD Allergies Allergen Reaction Date Comments Reported Bactrim 12/14/2018 Admission Admission Data Admission Date: 12/14/2018 Admission Time: 7:40 Procedure Procedure Types Cath Procedure Peripheral Cath Diagnostic Procedure Abd/Extremity Extremities AFRO Lower Ext Arterio Right Lower Ext Arterio Procedure Description Procedure Date Procedure Date: 12/14/2018 Procedure Start Time: 11:02 Procedure Staff Name Function Giuseppe Ayala MD Performing Physician Mary Russo RT Monitor David Jane RT Scrub Germania Olvera RN Nurse Abel Marsh CRNA Additional personnel Procedure Data Cath Procedure Fluoroscopy Diagnostic fluoroscopy Total fluoroscopy Time: 4.7 time: 4.7 min min Diagnostic fluoroscopy Total fluoroscopy dose: 171 dose: 171 mGy mGy Contrast Material Contrast Material Type Amount (ml) Isovue 300 60 Procedure Medications Medication Administration Route Dosage Heparin Flush Bag added to field 3 bags (1000units/500ml NS) Lidocaine 1% added to field 20 Heparin Bolus I.V. 4000 units Hemodynamics Rest Heart Rate: 67 (bpm) Snapshots Pre Cath Intra NCS Post Cath Vital Signs Time Heart Resp SPO2 etCO2 NIBP (mmHg) Rhythm Pain Sedation Rate (ipm) (%) (mmHg) Status Level (bpm) 10:30:08 71 100 0 Aborted NSR 0 (11) 10(A) , No pain 10:32:58 69 9 100 28.4 152/65(121) NSR 0 (11) 10(A) , No pain 10:37:14 67 19 100 28.4 160/72(107) NSR 0 (11) 10(A) , No pain 10:41:32 68 10 100 29.2 143/69(90) NSR 0 (11) 10(A) , No pain 10:45:50 69 16 100 31.4 122/54(85) NSR 0 (11) 10(A) , No pain 10:50:00 68 13 100 36.7 115/53(71) NSR 0 (11) 10(A) , No pain 10:54:10 69 14 100 37.4 101/47(73) NSR 0 (11) 10(A) , No pain 10:58:16 69 14 100 34.4 98/42(73) NSR 0 (11) 10(A) , No pain 11:02:22 69 12 100 41.9 93/45(68) NSR 0 (11) 10(A) , No pain 11:06:25 69 13 100 34.4 93/41(69) NSR 0 (11) 10(A) , No pain 11:10:50 70 15 100 32.9 90/37(61) NSR 0 (11) 10(A) , No pain 11:14:53 73 16 99 39.7 74/37(60) NSR 0 (11) 10(A) , No pain 11:18:51 72 15 98 41.2 80/35(63) NSR 0 (11) 10(A) , No pain 11:22:51 68 15 99 28.4 96/39(63) NSR 0 (11) 10(A) , No pain 11:26:56 70 13 99 45.7 88/34(59) NSR 0 (11) 10(A) , No pain 11:31:00 70 14 99 31.5 85/39(67) NSR 0 (11) 10(A) , No pain 11:35:02 69 14 99 44.9 87/38(57) NSR 0 (11) 10(A) , No pain 11:39:04 68 13 99 46.4 92/39(70) NSR 0 (11) 10(A) , No pain 11:43:07 68 14 100 48.7 87/34(53) NSR 0 (11) 10(A) , No pain 11:47:11 67 15 99 43.4 79/33(68) NSR 0 (11) 10(A) , No pain 11:51:11 68 15 99 47.9 83/33(54) NSR 0 (11) 10(A) , No pain 11:55:12 68 14 99 41.9 84/39(62) NSR 0 (11) 10(A) , No pain 11:59:14 69 13 99 46.4 87/35(67) NSR 0 (11) 10(A) , No pain 12:03:16 69 15 99 39.6 95/41(68) NSR 0 (11) 10(A) , No pain 12:07:18 69 15 99 38.1 112/52(75) NSR 0 (11) 10(A) , No pain 12:11:23 68 13 99 41.9 118/57(85) NSR 0 (11) 10(A) , No pain 12:15:31 67 12 99 36.7 125/57(87) NSR 0 (11) 10(A) , No pain 12:19:41 64 9 100 44.9 137/61(92) NSR 0 (11) 10(A) , No pain Medications Time Medication Route Dose Verified Delivered Reason Notes Effe ctiveness by by 10:50:54 Heparin Flush added 3 Giuseppe Chin used for Bag to bags Jamie Ayala MD procedure (1000units/500ml field BARGER NS) 10:51:07 Lidocaine 1% added 20ml Giuseppe Chin for local to vial Jamie Ayala MD anesthetic field BARGER 11:21:29 Heparin Bolus I.V. 4000 Giuseppe Solo Per units Wade Ayala RN physician Procedure Log Time Note 10:28:22 Time tracking: Regular hours (M-F 7:00 - 5:00) 10:29:11 Plan of Care:Hemodynamics will remain stable., Cardiac rhythm will remain stable., Comfort level will be maintained., Respiratory function will remain adequate., Patient/ family verbilizes understanding of procedure., Procedure tolerated without complication., Recovers from procedure without complications.. 10:29:26 Patient received from Outpatients to IR Alert and oriented. Tansferred to table in Supine position. 10:29:29 Correct patient and procedure confirmed by team. 10:29:31 Signed procedure consent form obtained from patient. 10:29:34 ECG and BP/O2 sat monitors applied to patient. 10:29:36 Vital chart was started 10:29:40 Baseline sample Acquired. 10:29:45 Baseline sample Acquired. 10:29:59 Full Disclosure recording started 10:32:44 - 10:32:49 H&P Date Dictated: 12/14/2018 Within 30 days and on chart.. 10:32:51 Pre-procedure instructions explained to patient. 10:32:52 Pre-op teaching completed and patient verbalized understanding. 10:32:54 Family in waiting room. 10:32:57 Patient NPO since Midnight. 10:33:04 Patient allergic to Bactrim 10:33:08 Is the patient allergic to Iodine/contrast media? No. 10:33:19 Is patient on blood thinner?Yes 10:33:23 - 10:33:24 ----Pre-sedation anethsthesia assessment.----see anesthesia notes for monitoring of patient during procedure 10:34:03 - 10:34:25 Use device set IR Diagnostic 10:34:27 Tegaderm 4 x 4 (1626W) opened to sterile field. 10:34:28 Sterile Angiographic Pack opened to sterile field. 10:34:29 Bag Decanter (2002S) opened to sterile field. 10:34:30 ACIST Manifold (88350) opened to sterile field. 10:34:31 ACIST Hand Control (68500) opened to sterile field. 10:34:32 ACIST Syringe (46858) opened to sterile field. 10:34:58 TUBING Contrast Injection High Pressure (LEO176E) opened to sterile field. 10:34:59 Micropuncture VSI 4FR kit opened to sterile field. 10:35:07 DOC .035 wire (G56033) opened to sterile field. 10:35:15 SHEATH 6FR Slender (80-0568) opened to sterile field. 10:35:35 - 10:36:29 Pre procedure: right dorsailis pedis pulse Doppler 10:36:34 Pre procedure: right posterior tibial pulse Doppler 10:37:13 Right Pedal was prepped with chlora-prep and draped in sterile fashion. 10:37:16 - 10:37:50 Left Arm was prepped with chlora-prep and draped in sterile fashion. 10:50:54 Heparin Flush Bag (1000units/500ml NS) 3 bags added to field was administered by Giuseppe Ayala MD; used for procedure; 10:51:07 Lidocaine 1% 20ml vial added to field was administered by Giuseppe Ayala MD; for local anesthetic; 11:00:39 Physician arrived 11:00:42 --------ALL STOP TIME OUT------ 11:00:43 Final Timeout: patient, procedure, and site verified with staff and physician. All members of the team are in agreement. 11:01:46 Baseline sample Acquired. 11:02:29 Procedure started. 11:02:42 Local anesthetic to Pedal area with Lidocaine 1% by Giuseppe Ayala MD.INITIAL ACCESS ONLY 11:11:24 CXI Catheter 90cm (G75147) opened to sterile field. 11:11:33 TORQUE DEVICE PLASTIC .038 ( TD01) opened to sterile field. 11:12:10 GLIDE WIRE ANGLE 180cm (DJ9973) opened to sterile field. 11:20:24 INFLATOR BasixTOUCH (FK5963) opened to sterile field. 11:20:57 CHOICE PT Extra Support J 300cm guide wire ([id number]) opened to steril e field. 11:21:29 Heparin Bolus 4000 units I.V. was administered by Germania Olvera RN; Per physician; 11:25:58 Inflate balloon Inflation number: 1 A CHOCOLATE 4.0 x 1200 x 135 balloo n ([id number]) was prepped and advanced across the Undefined1, then inflated.. 11:32:44 Inflate balloon Inflation number: 1 A Evercross 5 x 8 x 135 Balloon ([id number]) was prepped and advanced across the Undefined2, then inflated . 11:55:13 Inflate balloon Inflation number: 1 A CHOCOLATE 3.0 x 80 x 150 balloon ([id number]) was prepped and advanced across the Undefined3, then inflated . 11:55:52 Procedure ended.(Physican Out) 11:56:17 Fluoroscopy time 04.70 minutes. 11:56:23 Fluoroscopy dose: 171 mGy 11:56:23 Flurop Dose total: 171 11:56:46 Contrast amount:Isovue 300 60ml. 11:58:11 Procedure and supply charges have been captured, reviewed, submitted an d are correct. 11:58:15 Post Procedure Pulses reassessed and unchanged 12:24:02 Vital chart was stopped Intervention Summary Intervention Notes Time ActionType Lesion and Equipment Used Action# Pressure Duration Attributes ::58 Inflate Undefined1 CHOCOLATE 4.0 x 80 1 0 00:00 balloon x 135 balloon ([id number]) 11:32:44 Inflate Undefined2 Evercross 5 x 8 x 1 0 00:00 balloon 135 Balloon ([id number]) 11:55:13 Inflate Undefined3 CHOCOLATE 3.0 x 80 1 0 00:00 balloon x 150 balloon ([id number]) Device Usage Item Name Manufacture Quantity Catalog Number [employer] [facility] [employer] nt Minimal Lot# / Charge Number Stock Stock Serial# Code Tegaderm 4 x 4 3M 1 [id number] 766875 30751 5 5 (1626W) Sterile Cardinal 1 [id number] 666679 79633 2 5 Angiographic Pack Health Bag Decanter Microtek 1 697809 77804 74371 0 5 () Medical Inc. ACIST Manifold Acist 1 46296 147592 728682 76823 6 5 (27480) Medical Systems Inc ACIST Hand Control Acist 1 99340 766635 844507 18315 9 5 (26519) Medical Systems Inc ACIST Syringe Acist 1 12582 629787 344053 00541 4 20 (33706) Medical Systems Inc TUBING Contrast Merit 1 [id number] 806303 720541 89826 2 5 [id number] Injection High Medical Pressure ([id number]) Micropuncture VSI VSI VASCULAR 1 7266V 418538 95294 6 5 4FR kit SOLUTIONS DOC .035 wire Cook Medical 1 G52073 995584 68716 1 5 (S15058) SHEATH 6FR Slender Terumo 1 [id number] 879356 830568 02377 2 5 (80-1060) CXI Catheter 90cm Cook Medical 1 R64717 962318 990284 22744 0 5 [id number] ([id number]) TORQUE DEVICE [place]mont 1 TD01 659852 371874 64448 4 5 PLASTIC .038 ( Scientific TD01) GLIDE WIRE ANGLE Terumo 1 TU7682 793286 324906 07298 2 5 180cm (CS5290) INFLATOR Merit 1 LH2997 651845 980968 24339 6 5 Biotronics3D (SV6342) CHOICE PT Extra [place] 1 [id number] 193729 407586 23373 0 5 Support J 300cm Scientific guide wire ([id number]) CHOCOLATE 4.0 x 80 Medtronic 1 [id number] 584645 795043 48828 6 5 [id number] x 135 balloon O [id number] ([id number]) TW [id number] Evercross 5 x 8 x Medtronic 1 [id number] 400003 767725 49414 8 5 [id number] 135 Balloon ([id number]) CHOCOLATE 3.0 x 80 Medtronic 1 [id number] 007174 844344 80364 8 5 [id number] x 150 balloon OTW [id number] ([id number]) [id number] Signature Audit [place] Stage Time Signature Unsigned Intra-Procedure 12/14/2018 Mary Russo 12:23:59 PM RT(R) Signatures Monitor : Mary Russo RT Signature : Date : Time : [place] [address] [facility] [place] [address]
[2018-12-14 08:12] LABS: BASOPHILS 0.6 % (0-2); EOSINOPHILS 3.1 % (0-7); HEMOGLOBIN 8.4 g/dL (12-16); IMMATURE GRANULOCYTES 0.3 % (0-5); LYMPHOCYTES 24.3 % (15-50); MCV 76.7 fL (80.0-100.0); MEAN PLATELET VOLUME 9.5 fL (7.4-10.4); MONOCYTES 8.6 % (2-11); NEUTROPHILS 63.1 % (40-80); RBC 3.65 10x6/uL (4.00-5.40); RDW 19.5 % (11.5-14.5)
[2018-12-14 08:15] LABS: PLATELET COUNT 358 10x3/uL (130-400)
[2018-12-14 08:19] LABS: ANION GAP 17.3 mmol/L (8-16); CALCIUM 9.3 mg/dL (8.5-10.1); CARBON DIOXIDE 23.5 mmol/L (21.0-32.0); CREATININE - SERUM 1.9 mg/dL (0.6-1.3); POTASSIUM - SERUM 3.8 mmol/L (3.5-5.1)
[2018-12-14 08:21] LABS: INR 1.04 (0.85-1.17); PROTIME 13.1 SECONDS (11.6-15.0)
[2018-12-14 08:22] LABS: APTT 27.6 SECONDS (22.8-39.4)
[2018-12-14 09:25] VITALS: BP 146/58; Ht 162.6 cm; Wt 68.2 kg
--- NOTE | 2018-12-14 13:46 | NUR ---
1330 DR. FALLON ROUNDS 1340 ICE TO RIGHT LOWER LEG APPLIED. FINGER FOOD DIET ORDERED.
--- NOTE | 2018-12-14 14:19 | NUR ---
1415 FINGER FOOD DIET SERVED. SEE POST PROCEDURE CHECKLIST FOR VITAL SIGN TRENDS. HOB ELEVATED TO 30 DEGREES. ICE PACK TO PUNCTURE SITE. PULSE PRESENT.
== END 2018-12-14 15:30 | disposition home or self-care (01) ==
LOC: D.SP 07:40 → D.RAD 14:30 → D.SP 14:30
PROVIDERS: General Practice
DX: Z87.891 Personal history of nicotine dependence (principal); Z89.612 Acquired absence of left leg above knee; Z86.73 Personal history of transient ischemic attack (TIA), and cerebral infarction without residual deficits; I70.221 Atherosclerosis of native arteries of extremities with rest pain, right leg; Z01.812 Encounter for preprocedural laboratory examination

== ENCOUNTER 2018-12-28 13:09 | Outpatient (CLI) | payer MEDICARE, MEDICAID ==
[~2018-12-28] VITALS: Ht 162.6 cm; Wt 54.4 kg
[2018-12-28 14:36] VITALS: BP 127/47; Ht 162.6 cm; Wt 54.4 kg
--- NOTE | 2018-12-28 14:52 | NUR ---
1445 FINGER FOOD DIET SERVED.
--- NOTE | 2018-12-28 15:00 | NUR ---
1455 BLOOD CHECKED AT BEDSIDE BY THIS NURSE AND MARTIN HAM RN, INITIATED AT 50/CC/HR. PT'S MOTHER RETURNED TO ROOM.
--- NOTE | 2018-12-28 15:17 | NUR ---
1515 DENIES PROBLEMS WITH TRANSFUSION, RATE INCREASED TO 250/CC/HR.
--- NOTE | 2018-12-28 16:22 | NUR ---
1615 ROOM CHECK, BLOOD GOING WELL, IV SITE PATENT. PT. TALKING ON PHONE. DENIES PROBLEMS.
--- NOTE | 2018-12-28 17:19 | NUR ---
1640 1ST UNIT BLOOD COMPLETED, LINE BEING FLUSHED WITH NS. 1650 PT UP ON BEDSIDE COMMODE, VOIDS LG AMT. YELLOW URINE. 1655 2ND UNIT BLOOD CHECKED AT BEDSIDE BY THIS NURSE AND VIBHA MORGAN RN INITIATED AT 50/CC/HR. DENIES PROBLEMS WITH FIRST TRANSFUSION. 1710 DENIES PROBLEMS, STATES FEELS COLD, BLANKET PROVIDED, RATE INCREASED TO 250/CC/HR. CALL LIGHT AT BEDSIDE.
--- NOTE | 2018-12-28 17:57 | NUR ---
1743 ROOM CHECK, WATCHING TV, DENIES PROBLEMS. IV SITE GOOD.
--- NOTE | 2018-12-28 18:26 | NUR ---
1825 BLOOD NEAR COMPLETION, PT. BENT ARM, FREDERICK SUBRAMANIAN
--- NOTE | 2018-12-28 18:35 | NUR ---
1834 BLOOD COMPLETED, LINE BEING FLUSHED WITH NS. PT. CALLING HER RIDE. DENIED PROBLEMS WITH TRANSFUSION.
--- NOTE | 2018-12-28 19:21 | NUR ---
190 IV DC'D WITH CATH INTACT DC INSTS REVIEWED VOICED UNDERSTANDING RELEASED WITH DUC, A FRIEND BY GINA. DENIES PROBLEMS.
== END 2018-12-28 19:10 | disposition home or self-care (01) ==
LOC: D.OPS 13:09
PROVIDERS: ATTEND Family Medicine
DX: D64.9 Anemia, unspecified (principal); Z01.812 Encounter for preprocedural laboratory examination

== ENCOUNTER 2019-02-01 09:33 | Inpatient (IN) | payer MEDICARE, MEDICAID ==
[~2019-02-01] VITALS: Ht 162.6 cm; Wt 47.2 kg
[2019-02-01 10:24] LABS: HEMATOCRIT 35.3 % (36.0-48.0); HEMOGLOBIN 11.5 g/dL (12-16); MCH 27.1 pg (26.0-34.0); MCHC 32.6 g/dL (31.0-37.0); MCV 83.3 fL (80.0-100.0); MEAN PLATELET VOLUME 10.4 fL (7.4-10.4); PLATELET COUNT 360 10x3/uL (130-400); RBC 4.24 10x6/uL (4.00-5.40); RDW 22.9 % (11.5-14.5); WBC 30.6 10x3/uL (4.8-10.8)
[2019-02-01 10:30] LABS: ALBUMIN 3.4 g/dL (3.4-5.0); ANION GAP 16.6 mmol/L (8-16); BILIRUBIN - TOTAL 0.47 mg/dL (0.2-1.3); CALCIUM 9.9 mg/dL (8.5-10.1); CARBON DIOXIDE 23.9 mmol/L (21.0-32.0); CREATININE - SERUM 1.7 mg/dL (0.6-1.3); POTASSIUM - SERUM 4.5 mmol/L (3.5-5.1); PROTEIN - SERUM 8.4 g/dL (6.4-8.2)
[2019-02-01 11:32] LABS: LYMPHOCYTES 8 % (15-50); MONOCYTES 11 % (2-11); NEUTROPHILS 78 % (40-80); PLATELET ESTIMATE NORMAL; ROULEAUX OCC
[2019-02-01 13:17] LABS: APPEARANCE CLEAR (CLEAR); BILIRUBIN NEGATIVE (NEGATIVE); COLOR YELLOW (YELLOW); GLUCOSE NEGATIVE (NEGATIVE); KETONE SMALL mg/dL (NEGATIVE); NITRITE NEGATIVE (NEGATIVE); PROTEIN TRACE mg/dL (NEGATIVE); SPECIFIC GRAVITY 1.015 (1.005-1.020); UROBILINOGEN NORMAL (NORMAL)
[2019-02-01 13:19] LABS: BACTERIA MANY /hpf (NONE SEEN); EPITHELIAL CELLS 0-5 /hpf (0-5); WHITE CELLS - URINE 0-5 /hpf (0-5)
[2019-02-01 14:42] VITALS: BP 153/76
[2019-02-01 14:44] VITALS: BP 153/76
--- NOTE | 2019-02-01 16:53 | NUR ---
PATIENT RECIEVED BY STRETCHER FROM ERWITH UTI AND SEPSIS. PATIENT REPORTS INCREASED WEAKNESS. IV RIGHT AC WITH NS @125. PATIENT DENIES ANY PAIN AT THIS TIME. ORIENTED TO ROOM WITH CL IN EASY REACH
--- NOTE | 2019-02-01 19:30 | NUR ---
BEING ASSISTED BY STAFF PT DENIES NEEDS FROM ME IV PATENT TO RT AC SKIN WAEM AND DRY BOWEL SOUNDS X4....SEEMS ALERT AND ORIENTATED AT THIS TIME
[2019-02-01 22:22] VITALS: BP 157/62
--- NOTE | 2019-02-02 04:36 | NUR ---
I have reviewed this patient and I concur with the Shift Assessment completed by the Licensed Practical Nurse today this shift.
[2019-02-02 05:16] VITALS: BP 164/64
[2019-02-02 07:26] LABS: RBC 3.33 10x6/uL (4.00-5.40); WBC 22.3 10x3/uL (4.8-10.8)
[2019-02-02 07:27] LABS: ANION GAP 11.6 mmol/L (8-16); BASOPHILS 0.2 % (0-2); CALCIUM 8.2 mg/dL (8.5-10.1); CARBON DIOXIDE 24.1 mmol/L (21.0-32.0); CREATININE - SERUM 1.3 mg/dL (0.6-1.3); EOSINOPHILS 0.8 % (0-7); HEMOGLOBIN 8.8 g/dL (12-16); IMMATURE GRANULOCYTES 0.5 % (0-5); LYMPHOCYTES 13.9 % (15-50); MCH 26.4 pg (26.0-34.0); MCHC 31.4 g/dL (31.0-37.0); MCV 84.1 fL (80.0-100.0); MEAN PLATELET VOLUME 10.6 fL (7.4-10.4); MONOCYTES 7.7 % (2-11); NEUTROPHILS 76.9 % (40-80); PLATELET COUNT 302 10x3/uL (130-400); RDW 23.2 % (11.5-14.5)
[2019-02-02 07:30] LABS: POTASSIUM - SERUM 3.7 mmol/L (3.5-5.1)
--- NOTE | 2019-02-02 09:01 | NUR ---
PATIENT ADMITTED FOR UTI AND SEPSIS. RECIEVED CALL FROM LAB OF POSITIVE BLOOD CULTURE. NOTIFIED LUIS ANTONIO GOTTLIEB APN. PATIENT DENIES ANY PAIN OR SHORTNESS OF BREATH. CALLS FOR BED FOY FOR VOIDING. PATIENT HAS OLD LEFT AKA, NORMALLY TRANSFERS TO WHEELCHAIR TO MOBILITY. CL IN REACH
[2019-02-02 09:05] VITALS: BP 141/49
[2019-02-02 12:47] VITALS: BP 145/56
[2019-02-02 13:59] VITALS: BMI 21.2
[2019-02-02 16:04] LABS: % SATURATION 6 % (15-55); IRON 17 ug/dl (35-150); TOTAL IRON BIND CAPACITY 247 ug/dl (260-445); UNSAT IRON BIND CAPACITY 230 ug/dl (150-375)
[2019-02-02 17:24] VITALS: BP 147/46
[2019-02-02 18:02] LABS: UDS - AMPHET NEGATIVE QUAL (NEGATIVE); UDS - BARB NEGATIVE QUAL (NEGATIVE); UDS - BENZO NEGATIVE QUAL (NEGATIVE); UDS - COCAINE NEGATIVE QUAL (NEGATIVE); UDS - OPIATE NEGATIVE QUAL (NEGATIVE); UDS - PCP NEGATIVE QUAL (NEGATIVE); UDS - THC NEGATIVE QUAL (NEGATIVE)
--- NOTE | 2019-02-02 18:34 | NUR ---
PATIENT RESTING IN BED WATCHING TV, NO NEEDS VOICED, CL IN REACH
--- NOTE | 2019-02-02 19:00 | NUR ---
REPORT RECEIVED AND CARE OF PT ASSUMED. PT LYING IN LOW FOWELER'S POSITION WATCHING TV. IV IN LEFT AC PATENT WITH NS INFUSING AT 125 ML / HR., WILL MONITOR FOR NEEDS.
--- NOTE | 2019-02-02 20:19 | NUR ---
HS MEDICATIONS GIVEN. WILL CONTINUE TO MONITOR FOR NEEDS.
[2019-02-02 20:34] VITALS: BP 142/50
[2019-02-03 00:05] VITALS: BP 154/60
--- NOTE | 2019-02-03 03:27 | NUR ---
NEW VIAL OF DILAUDID PLACED IN LINING VAMPER AND TUBING CHANGED.
[2019-02-03 05:15] VITALS: BP 128/56
[2019-02-03 06:39] LABS: BILIRUBIN - TOTAL 0.19 mg/dL (0.2-1.3); CALCIUM 7.6 mg/dL (8.5-10.1); CARBON DIOXIDE 18.5 mmol/L (21.0-32.0); CREATININE - SERUM 1.3 mg/dL (0.6-1.3); POTASSIUM - SERUM 3.5 mmol/L (3.5-5.1)
[2019-02-03 06:45] LABS: ALBUMIN 2.1 g/dL (3.4-5.0); PROTEIN - SERUM 5.3 g/dL (6.4-8.2)
[2019-02-03 07:18] LABS: HEMATOCRIT 25.1 % (36.0-48.0); HEMOGLOBIN 8.3 g/dL (12-16); LYMPHOCYTES 20.1 % (15-50); MCH 28.2 pg (26.0-34.0); MCHC 33.1 g/dL (31.0-37.0); MCV 85.4 fL (80.0-100.0); MEAN PLATELET VOLUME 10.7 fL (7.4-10.4); NEUTROPHILS 69.8 % (40-80); PLATELET COUNT 279 10x3/uL (130-400); RBC 2.94 10x6/uL (4.00-5.40); RDW 23.1 % (11.5-14.5)
[2019-02-03 07:20] LABS: WBC 14.7 10x3/uL (4.8-10.8)
[2019-02-03 07:29] LABS: FOLATE (FOLIC ACID) - SERUM 3.3 ng/mL (>3.0)
[2019-02-03 08:31] VITALS: BP 135/44
[2019-02-03 13:02] VITALS: BP 166/58
--- NOTE | 2019-02-03 15:13 | EC ---
PATIENT:VINI CHACON DATE OF SERVICE: 02/01/19 SEX: F MEDICAL RECORD: [id number] DATE OF : 50 LOCATION:[facility] AGE OF PATIENT: 68 ADMISSION DATE: 02/01/19 REFERRING PHYSICIAN: INTERPRETING PHYSICIAN: JOSE GOINS MD ECHOCARDIOGRAM REPORT ECHO CHARGES 4 ECHO COMPLETE Date: 02/03/19 CLINICAL DIAGNOSIS: BACTEREMIA ECHOCARDIOGRAPHIC MEASUREMENTS (adult normal given) AC root (d.<3.7cm) 2.6 cm LV Septum d (<1.2 cm> 0.9 cm Valve Excursion 1.5 cm LV Septum (systole) 1.7 cm Left Atria (s.<4.0cm> 4.3 cm LVPW d(<1.2cm) 1.2 cm RV (d.<2.3cm) 2.2 cm LVPW (sytole) 2.0 cm LV diastole(<5.6CM) 4.9 cm MV E-F(>70mm/sec) cm LV systole 2.9 cm LVOT Diameter 1.6 cm MV exc.(>10mm) cm Est.ejection fraction (50-75%) % DOPPLER: LVIT cm/sec A 75.0 cm/sec E 122 cm/sec LA cm/sec RVSP 35.0 mmHg LVOT 89.0 cm/sec AOP1/2T m/s Asc. Ao 159 cm/sec RVOT 53.0 cm/sec RA cm/sec PA 76.0 cm/sec AV Gradient Peak 10.1 mmHg AV Mean 3.9 mmHg AV Area 1.2 cm MV Gradient Peak 6.0 mmHg MV Mean 1.7 mmHg MV Area cm COMMENTS: Relationship Assoc: [employer] Instructor: 1 Dr. Goins TAPE# PACS Pericardial Effusion N DATE OF SERVICE: 02/03/2019 ECHOCARDIOGRAM FINDINGS: 1. Left ventricular chamber size is within normal limits. Left ventricular systolic function is mildly reduced, overall ejection fraction 40%. 2. Left atrium is enlarged at 4.3 cm. Right atrium and right ventricular chamber sizes are within normal limits. 3. Valvular structures have normal structure and motion. ECHOCARDIOGRAM REPORT [id number] VINI CHACON 4. Doppler interrogation reveals moderate mitral regurgitation, mild tricuspid regurgitation, no other valvular insufficiency or stenosis. Pulmonary systolic pressure is estimated at 35 mmHg. 5. No evidence of pericardial effusion or left ventricular thrombus. TRANSINT:[id number] Voice Confirmation ID: [id number] DOCUMENT ID: [id number] JOSE GOINS MD at 1513 CC: [id number] DICTATION DATE: 02/03/19 1302 FACILITY DESIGNER: 02/03/19 1344 ADM IN [facility] [address] [place] [address]
[2019-02-03 16:44] VITALS: BP 176/65
--- NOTE | 2019-02-03 18:05 | NUR ---
PATIENT IN BED WITH IV INTACT. NO COMPLAINTS OR SIGNS OF DISTRESS. IRON INFUSING AT THIS TIME. CALL LIGHT WITHIN REACH.
--- NOTE | 2019-02-03 19:00 | NUR ---
REPORT RECEIVED AND CARE OF PT ASSUMED. PT LYING IN SUPINE POSITION WATCHING TV. IV IN RIGHT AC PATENT WITH NS INFUSING AT 125 ML / HR. TELEMETRY IN PLACE AND READING SR AT THIS ASSESSMENT. WILL MONITOR FOR NEEDS.
[2019-02-03 20:01] VITALS: BP 179/72
--- NOTE | 2019-02-03 20:12 | NUR ---
HS MEDICATIONS GIVEN. WILL CONTINUE TO MONITOR FOR NEEDS.
[2019-02-04] VITALS (8 sets, daily range): BP systolic 156–217; BP diastolic 64–95
[2019-02-04 05:36] LABS: BASOPHILS 0.3 % (0-2); EOSINOPHILS 1.1 % (0-7); HEMATOCRIT 28.2 % (36.0-48.0); HEMOGLOBIN 8.9 g/dL (12-16); IMMATURE GRANULOCYTES 1.1 % (0-5); LYMPHOCYTES 13.2 % (15-50); MCH 26.2 pg (26.0-34.0); MCHC 31.6 g/dL (31.0-37.0); MEAN PLATELET VOLUME 10.5 fL (7.4-10.4); MONOCYTES 6.2 % (2-11); NEUTROPHILS 78.1 % (40-80); RDW 22.2 % (11.5-14.5); WBC 16.3 10x3/uL (4.8-10.8)
[2019-02-04 05:40] LABS: MCV 82.9 fL (80.0-100.0); PLATELET COUNT 375 10x3/uL (130-400)
[2019-02-04 06:23] LABS: ALBUMIN 2.4 g/dL (3.4-5.0); ANION GAP 17.8 mmol/L (8-16); BILIRUBIN - TOTAL 0.18 mg/dL (0.2-1.3); CALCIUM 8.1 mg/dL (8.5-10.1); CARBON DIOXIDE 18.9 mmol/L (21.0-32.0); CREATININE - SERUM 1.2 mg/dL (0.6-1.3); POTASSIUM - SERUM 3.7 mmol/L (3.5-5.1); PROTEIN - SERUM 5.9 g/dL (6.4-8.2); VANCOMYCIN - TROUGH 23.1 ug/mL (10.0-20.0)
--- NOTE | 2019-02-04 08:30 | NUR ---
PT RESTING EYES CLOSED NO SIGNS OF DISTRESS NOTED, EASY RISE AND FALL OF CHEST, CL IN REACH WILL CONTINUE TO MONITOR
--- NOTE | 2019-02-04 14:00 | NUR ---
PT MANUAL BP TAKEN AND IT IS 210/102 [facility] CALLED AND NOTIFIED
--- NOTE | 2019-02-04 19:00 | NUR ---
REPORT RECEIVED AND CARE OF PT ASSUMED. PT LYING IN SUPINE POSITION WITH EYES CLOSED. FAMILY MEMBER IS AT BEDSIDE. IV IN RIGHT AC LEAKING...WILL REMOVE.
--- NOTE | 2019-02-04 20:00 | NUR ---
IV TO RIGHT AC REMOVED WITH CATHETER TIP INTACT. RE-SITED TO LEFT FA USING 22 GUAGE CATHETER BY WYATT LUJAN LPN. IV FLUIDS RE-STARTED.
--- NOTE | 2019-02-04 20:57 | NUR ---
GAVE HS MEDICATIONS TO INCLUDE MIRALAX MIXED WITH 8 OZ OF WATER.
--- NOTE | 2019-02-04 21:06 | NUR ---
PT VOMITED 400ML OF BLOOD AFTER TAKING HS MEDICATIONS. CALLED DR FLORES AND RECEIVED ORDERS TO START PROTONIX DRIP AND SEND TO ICU. CALLED LICENSING WORKER TO GET BED ASSIGNED.
--- NOTE | 2019-02-04 21:25 | NUR ---
STARTED PROTONIX DRIP PER ORDER.
--- NOTE | 2019-02-04 21:47 | NUR ---
REPORT GIVEN TO NAYELI SO AND PT TAKEN TO ICU VIA BED.
[2019-02-05] VITALS (23 sets, daily range): BP systolic 116–194; BP diastolic 47–90
--- NOTE | 2019-02-05 01:29 | NUR ---
RECIEVED PT FROM FLOOR ACCOMPANIED BY HOSPITAL STAFF. ALERT AND ORIENTED X4. RESPIRATIONS EVEN AND UNLABORE. NO VISUAL CUES OF DISTRESS NOTED. BP 210/105. GAVE 10 ML HYDRALAZINE PER MD ORDER. STARTED SERIAL VS CHECKS. DENIES ANY OTHER NEEDS AT THIS TIME. BED LOW, SR UP X2. CALL LIGHT IN REACH. WILL CONTINUE TO MONITOR.
[2019-02-05 02:55] LABS: HEMATOCRIT 32.3 % (36.0-48.0); HEMOGLOBIN 10.6 g/dL (12-16); MCHC 32.8 g/dL (31.0-37.0); MCV 82.4 fL (80.0-100.0); PLATELET COUNT 457 10x3/uL (130-400); RBC 3.92 10x6/uL (4.00-5.40); RDW 22.4 % (11.5-14.5); WBC 28.2 10x3/uL (4.8-10.8)
[2019-02-05 02:57] LABS: LYMPHOCYTES 7 % (15-50); MONOCYTES 12 % (2-11); NEUTROPHILS 81 % (40-80); PLATELET ESTIMATE INCREASED; ROULEAUX OCC
[2019-02-05 03:01] LABS: ALBUMIN 2.8 g/dL (3.4-5.0); ANION GAP 20.8 mmol/L (8-16); BILIRUBIN - TOTAL 0.33 mg/dL (0.2-1.3); CALCIUM 9.3 mg/dL (8.5-10.1); CREATININE - SERUM 1.1 mg/dL (0.6-1.3); POTASSIUM - SERUM 3.8 mmol/L (3.5-5.1); PROTEIN - SERUM 7.1 g/dL (6.4-8.2); VANCOMYCIN - RANDOM 20.1 ug/mL (10.0-20.0)
--- NOTE | 2019-02-05 19:20 | NUR ---
RECEIVED CARE OF PT, ASSESSMENT PER FLOWSHEET. PT PLACED ON BEDPAN, VOIDED 300 CC OF YELLOW URINE, PERICARE PROVIDED. HR SR ON CM, ON RA, PPP, LT AKA NOTED. PT DENIES ANY NEEDS AT THIS TIME, ASSISTED TO COMFORTABLE POSITION, CALL LIGHT IN REACH, WILL MONITOR.
--- NOTE | 2019-02-05 19:29 | NUR ---
0700 AWAKE ALERT HEPD ASA AND BEAKFAST ASSESSMENT COMPLETR
--- NOTE | 2019-02-05 19:31 | NUR ---
1100 VOIDED ON BEDPAN CLEAR YELLOW URINE
--- NOTE | 2019-02-05 19:31 | NUR ---
1300 HELP LUNCH TRAY VOICES NO COMPLAINTS
--- NOTE | 2019-02-05 19:32 | NUR ---
1500 WATCHING TV WITHOUT COMPLICATIONS MOTHER AT BEDSIDE
--- NOTE | 2019-02-05 19:33 | NUR ---
1700 B/P FINALLY REACTING TO MEDS AND LOWERED TO WNL TRAY SERVE FEW BITES CONSUMED EMESIS 100ML FOOD NO BLOOD NOTED
--- NOTE | 2019-02-05 21:30 | NUR ---
NO VISITORS PRESENT AT THIS TIME, VSS, DENIES ANY NEEDS.
--- NOTE | 2019-02-05 23:15 | NUR ---
REASSESSMENT PER FLOWSHEET, NO ACUTE CHANGES NOTED AT THIS TIME. HR SR, VSS.
[2019-02-06] VITALS (24 sets, daily range): BP systolic 113–166; BP diastolic 51–83
--- NOTE | 2019-02-06 01:00 | NUR ---
PT PLACED ON BEDPAN PER REQUEST, VOIDED 450 CC OF YELLOW URINE, PERICARE PROVIDED AND ASSISTED TO COMFORTABLE POSITION. VSS
[2019-02-06 03:59] LABS: BASOPHILS 0.2 % (0-2); EOSINOPHILS 0.7 % (0-7); IMMATURE GRANULOCYTES 1.2 % (0-5); LYMPHOCYTES 12.4 % (15-50); MCH 26.7 pg (26.0-34.0); MCHC 32.7 g/dL (31.0-37.0); MCV 81.8 fL (80.0-100.0); MEAN PLATELET VOLUME 9.8 fL (7.4-10.4); MONOCYTES 7.3 % (2-11); NEUTROPHILS 78.2 % (40-80); PLATELET COUNT 424 10x3/uL (130-400); RDW 22.6 % (11.5-14.5)
[2019-02-06 04:03] LABS: HEMATOCRIT 24.8 % (36.0-48.0); HEMOGLOBIN 8.1 g/dL (12-16); RBC 3.03 10x6/uL (4.00-5.40); WBC 19.1 10x3/uL (4.8-10.8)
[2019-02-06 04:15] LABS: ALBUMIN 2.1 g/dL (3.4-5.0); ANION GAP 16.2 mmol/L (8-16); BILIRUBIN - TOTAL 0.24 mg/dL (0.2-1.3); CARBON DIOXIDE 20.3 mmol/L (21.0-32.0); CREATININE - SERUM 1.1 mg/dL (0.6-1.3); POTASSIUM - SERUM 3.5 mmol/L (3.5-5.1); PROTEIN - SERUM 5.4 g/dL (6.4-8.2)
--- NOTE | 2019-02-06 09:31 | NUR ---
NUTRITION F/U PT SLEEPING WITH FAMILY AT BEDSIDE. REPORTS PT WITH SOME N/V LAST PM. NO INTAKE BREAKFAST THIS AM. WILL CONTINUE TO PROVIDE DIET, MONITOR PO INTAKE. RD FOLLOWING
--- NOTE | 2019-02-06 14:48 | NUR ---
0700 SLEEPING EASILY AWAKENS TO VOICE. NO C/O PAIN ASSESSMENT COMPLETE
--- NOTE | 2019-02-06 15:03 | NUR ---
0900 BREAKFAST TRAY SERVED APPETITE FAIR DENIES NAUSEA AT PRESENT
--- NOTE | 2019-02-06 15:05 | NUR ---
1100 WATCHING TV WITHOUT COMPLAINTS REPOSITIONS SELF IN BED VOIDED ON BEDPAN
--- NOTE | 2019-02-06 15:07 | NUR ---
1300 CONSUMED 40% OF LUNCH DENIES NAUSEA
--- NOTE | 2019-02-06 15:08 | NUR ---
1500 RESTING QUIETLY PT CONSULT WRITTEN TO ASSIST PT TO RECLINER CHAIR
[2019-02-07] VITALS (21 sets, daily range): BP systolic 117–159; BP diastolic 49–82
[2019-02-07 04:44] LABS: HEMATOCRIT 25.5 % (36.0-48.0); HEMOGLOBIN 8.2 g/dL (12-16); MCH 26.8 pg (26.0-34.0); MCHC 32.2 g/dL (31.0-37.0); MCV 83.3 fL (80.0-100.0); MEAN PLATELET VOLUME 10.1 fL (7.4-10.4); PLATELET COUNT 455 10x3/uL (130-400); RBC 3.06 10x6/uL (4.00-5.40); RDW 23.2 % (11.5-14.5); WBC 21.1 10x3/uL (4.8-10.8)
[2019-02-07 05:01] LABS: ALBUMIN 2.3 g/dL (3.4-5.0); ANION GAP 13.5 mmol/L (8-16); BILIRUBIN - TOTAL 0.2 mg/dL (0.2-1.3); CALCIUM 8.3 mg/dL (8.5-10.1); CARBON DIOXIDE 24.6 mmol/L (21.0-32.0); CREATININE - SERUM 1.3 mg/dL (0.6-1.3); POTASSIUM - SERUM 4.1 mmol/L (3.5-5.1); PROTEIN - SERUM 5.7 g/dL (6.4-8.2)
[2019-02-07 05:30] LABS: EOSINOPHILS 2 % (0-7); LYMPHOCYTES 23 % (15-50); MONOCYTES 5 % (2-11); NEUTROPHILS 69 % (40-80)
[2019-02-07 05:31] LABS: PLATELET ESTIMATE NORMAL
--- NOTE | 2019-02-07 12:27 | NUR ---
1700 [address]ATCH[address] TV VOICES NO COMPLAINTS
--- NOTE | 2019-02-07 12:27 | NUR ---
0700 ASLEEP AWAKENS TO VOICE DENIES PAIN ASSESSMENT COMPLETE
--- NOTE | 2019-02-07 12:28 | NUR ---
0900 UP TO RECLINER CHAIR WITH ASSIST FROM PHYSICAL THERAPIST
--- NOTE | 2019-02-07 12:29 | NUR ---
1100 RN ASSISTED PT UP TO BSC VOIDED. HARD BM NOTED SPECIMEN SENT TO LAB FOR OCCULT BLOOD TESTING
--- NOTE | 2019-02-07 12:31 | NUR ---
1300 SITTING IN RECLINER EATING LUNCH
--- NOTE | 2019-02-07 19:02 | NUR ---
1700 VISITOR AT BEDSIDE
--- NOTE | 2019-02-07 19:02 | NUR ---
1500 ASSISTED BACK TO BED
--- NOTE | 2019-02-07 19:06 | NUR ---
184 REPORT CALLED TO MELODIE ON MED III
--- NOTE | 2019-02-07 19:20 | NUR ---
Received patient resting in bed with eyes open, assessment completed per flowsheet. Patient AO x4, answers appropriately/follows instructions. S1/S2 noted NSR on telemetry with HR 72, rythmic and regular. Breathing is even/unlabored on room air with O2 sat 95%, lung sounds clear throughout. Abdomen is flat/soft with bowel sounds active x4, non-tender. patient utilizes bedpan at request, clear yellow urine noted. LLE amputation with remaining pulses palpable, cap refill < 3 sec with skin warm/dry. Denies pain or other needs at this time, see flowsheet for details. All VSS and will continue to monitor.
--- NOTE | 2019-02-07 21:10 | NUR ---
HS meds given without difficulty, patient transferred to 1208 via wheelchair.
--- NOTE | 2019-02-07 21:15 | NUR ---
RECIEVED PT VIA WHEELCHAIR. CALL LIGHT IN REACH. PT IN BED. DENIES NEEDS OR PAIN AT THIS TIME. BED IN LOW POSITION. SIDE RAILS X2. RESP EVEN AND UNLABORED. A/O X4. WILL CONTINUE TO MONITOR.
[2019-02-08] VITALS (7 sets, daily range): BP systolic 143–177; BP diastolic 55–68
--- NOTE | 2019-02-08 00:15 | NUR ---
CHANGED LINEN. PT HAD INCONT OF URINE. DENIES FURTHER NEEDS. WCTM CALL LIGHT IN REACH.
--- NOTE | 2019-02-08 00:17 | MORECARE ---
CASE MANAGEMENT DISCHARGE SUMMARY PATIENT: VINI CHACON UNIT: [id number] ADM DATE: 02/01/19 AGE: 68 : 50 SEX: F ROOM/BED: D.1208 AUTHOR: QIAN ROPER PHYSICIAN: REFERRING PHYSICIAN: SHINE FLORES MD DATE OF SERVICE: 02/08/19 Discharge Plan Patient Name: VINI CHACON [facility] [facility] 1950 Planned Disposition: Home Anticipated Discharge Date: Discharge Date: Expected LOS: Initial Reviewer: [email or web address] Initial Review Date: 02/01/2019 Generated: 02/08/19 1:17 am DCPIA - Discharge Planning Initial Assessment Updated by [email or web address]: Marla Padilla on 02/08/19 12:17 am * Is the patient Alert and Oriented? Yes * How many steps to enter\exit or inside your home? RAMP * PCP GRACIELA * Pharmacy CAN'T REMEMBER NAME * Preadmission Environment Home with Family * ADLs Independent * Other Equipment SHOWER CHAIR, BSC, WHEELCHAIR, WALKER * List name and contact numbers for known caregivers / representatives who currently or will assist patient after discharge: [facility] [phone] * Verbal permission to speak to the caregivers and representatives has been obtained from the patient. Yes * Community resources currently utilized None * Additional services required to return to the preadmission environment? No * Can the patient safely return to the preadmission environment? Yes * Has this patient been hospitalized within the prior 30 days at any hospital? No Patient Name: VINI HCACON Page 11288 at 0017 All edits/amendments must be made on the electronic document DICTATION DATE: 02/08/1915 HOME HEALTH SPECIALIST: KIM 02/08/1915 RPT#: [id number] DC DATE: STATUS: ADM IN [facility] [address] [place] [address] END OF REPORT
--- NOTE | 2019-02-08 00:24 | MORECARE ---
CASE MANAGEMENT DISCHARGE SUMMARY PATIENT: VINI CHACON UNIT: [id number] ADM DATE: 02/01/19 AGE: 68 : 50 SEX: F ROOM/BED: D.1208 AUTHOR: JACQUELIN,DOC PHYSICIAN: REFERRING PHYSICIAN: SHINE FLORES MD DATE OF SERVICE: 02/08/19 Discharge Plan Patient Name: VINI CHACON Facility: [facility]:[place] : 1950 Planned Disposition: Home Anticipated Discharge Date: Discharge Date: Expected LOS: Initial Reviewer: [email or web address] Initial Review Date: 02/01/2019 Generated: 02/08/19 1:24 am Comments DCP- Discharge Planning Updated by [email or web address]: Marla Padilla on 02/07/19 11:[address] Patient Name: VINI CHACON Admission Status: ER Accout number: [id number] Admission Date: 02-01-2019 : 1950 Admission Diagnosis:SEPSIS, UNSPECIFIED ORGANISM Attending: SHINE FLORES Current LOS: 7 Anticipated DC Date: Planned Disposition: Home Primary Insurance: [facility] MEDIC[facility] SOLUTIONS Discharge Planning Comments: CM met with patient at bedside after explaining CM role and obtaining verbal consent. Patient lives at home with her Mother and plans to return there upon discharge. Patient feels this would be a safe discharge. CM discussed availability / needs of home health and medical equipment. Patient did state she had home health services in the past, but can't recall the name. Patient states her Mother will know but she doesn't want to use that company again. OMAR form not signed at this time. CM will continue to follow and assist as needed with discharge planning / needs. Supervisor: Marla Padilla DCPIA - Discharge Planning Initial Assessment Updated by [id number]: Marla Padilla on 02/08/19 12:17 am * Is the patient Alert and Oriented? Yes * How many steps to enter\exit or inside your home? RAMP * PCP GRACIELA * Pharmacy CAN'T REMEMBER NAME * Preadmission Environment Home with Family * ADLs Independent * Other Equipment SHOWER CHAIR, BSC, WHEELCHAIR, WALKER * List name and contact numbers for known caregivers / representatives who currently or will assist patient after discharge: TULIO FIGUEROA- [phone] * Verbal permission to speak to the caregivers and representatives has been obtained from the patient. Yes * Community resources currently utilized None * Additional services required to return to the preadmission environment? No * Can the patient safely return to the preadmission environment? Yes * Has this patient been hospitalized within the prior 30 days at any hospital? No Last DP export: 02/07/19 11:17 p Patient Name: VINI CHACON Page [id number] at 0024 All edits/amendments must be made on the electronic document DICTATION DATE: 02[birth year]08/[birth year]23 AGRICULTURAL MECHANIC: KIM 02/08/1923 RPT#: [id number] DC DATE: STATUS: ADM IN [facility] [address] [place] [address] END OF REPORT
--- NOTE | 2019-02-08 04:20 | NUR ---
I have reviewed this patient and I concur with the Shift Assessment completed by the Licensed Practical Nurse today this shift.
--- NOTE | 2019-02-08 08:26 | NUR ---
AM MEDS GIVEN WITH A SIP OF WATER, PT A/O X3, CONFUSED TO TIME. RESP EVEN AND NONLABORED ON RA. LT WRIST IV INFUSING NS AT50CC/HR. AND PROTONIX DRIP AT 10CC/HR. PT DENIES ANY NEEDS AT THIS TIME. CALL LIGHT IN REACH, NAD NOTED,WILL CONTINUE TO MONITOR.
--- NOTE | 2019-02-08 14:11 | NUR ---
TO GI AT THIS TIME.
[2019-02-08 14:12] LABS: HEMATOCRIT 25.4 % (36.0-48.0); HEMOGLOBIN 8.3 g/dL (12-16); MCH 27.7 pg (26.0-34.0); MCHC 32.7 g/dL (31.0-37.0); MCV 84.7 fL (80.0-100.0); PLATELET COUNT 537 10x3/uL (130-400); RDW 24.3 % (11.5-14.5); WBC 24.5 10x3/uL (4.8-10.8)
[2019-02-08 14:24] LABS: ANION GAP 8.6 mmol/L (8-16); CALCIUM 8.7 mg/dL (8.5-10.1); CREATININE - SERUM 1.2 mg/dL (0.6-1.3); POTASSIUM - SERUM 3.6 mmol/L (3.5-5.1)
[2019-02-08 14:39] LABS: LYMPHOCYTES 12 % (15-50); MONOCYTES 9 % (2-11); NEUTROPHILS 79 % (40-80); PLATELET ESTIMATE INCREASED
--- NOTE | 2019-02-08 14:58 | NUR ---
RECEIVED PT BACK TO ROOM 1208 VIA BED, PT ALERT, VITAL SIGNS STABLE, DENIES ANY NEEDS AT THIS TIME. CALL LIGHT IN REACH, NAD NOTED,W ILL CONTINUE TO MONITOR.
--- NOTE | 2019-02-08 17:16 | NUR ---
FAMILY WANTS TO TALK TO DR. PEREZ, PAGED DR. PEREZ, WAITING LOGISTICS INTERN BACK.
--- NOTE | 2019-02-08 19:20 | NUR ---
PATIENT RESTING QUIETLY IN BED. DENIES HAVING ANY PAIN OR NEEDS AT THIS TIME. BED IN LOWEST POSITION. SIDE RAILS UP. CALL LIGHT IN REACH. CONTINUE PLAN OF CARE.
--- NOTE | 2019-02-08 22:00 | NUR ---
PATIENT COMPLAINS OF IV LEAKING. IV IN LEFT HAND D/C'D. NEW IV SITED TO LEFT WRIST X 1 ATTEMPT. 20 G. BLOOD RETURN AND FLUSHES WITHOUT DIFFICULTY.
[2019-02-09] VITALS (10 sets, daily range): BP systolic 123–142; BP diastolic 41–80
--- NOTE | 2019-02-09 04:30 | NUR ---
PATIENT RESTING IN BED WITH EYES CLOSED. NO SIGNS OF DISTRESS. BED IN LOWEST POSITION. SIDE RAILS UP. CALL LIGHT IN REACH. CONTINUE PLAN OF CARE.
[2019-02-09 06:37] LABS: RBC 2.65 10x6/uL (4.00-5.40); WBC 27.6 10x3/uL (4.8-10.8)
[2019-02-09 06:38] LABS: BASOPHILS 0.1 % (0-2); EOSINOPHILS 0 % (0-7); HEMATOCRIT 22.5 % (36.0-48.0); HEMOGLOBIN 7.2 g/dL (12-16); IMMATURE GRANULOCYTES 1.1 % (0-5); LYMPHOCYTES 8.8 % (15-50); MCH 27.2 pg (26.0-34.0); MCV 84.9 fL (80.0-100.0); MEAN PLATELET VOLUME 9.2 fL (7.4-10.4); MONOCYTES 6.7 % (2-11); NEUTROPHILS 83.3 % (40-80); PLATELET COUNT 453 10x3/uL (130-400); RDW 24.7 % (11.5-14.5)
[2019-02-09 06:46] LABS: ALBUMIN 2.3 g/dL (3.4-5.0); ANION GAP 13.7 mmol/L (8-16); BILIRUBIN - TOTAL 0.25 mg/dL (0.2-1.3); CALCIUM 8.5 mg/dL (8.5-10.1); CARBON DIOXIDE 25.3 mmol/L (21.0-32.0); CREATININE - SERUM 1.2 mg/dL (0.6-1.3)
--- NOTE | 2019-02-09 07:20 | NUR ---
RESTING QUIETLY WITH EYES CLOSED. RESP EVEN,NONLABORED.
--- NOTE | 2019-02-09 08:00 | NUR ---
ASSESSMENT COMPLETE. IV TO L WRIST PATENT. WEAPONS MECHANIC SHOWING SR 63 PER TECH. DENIES ANY NEEDS AT THIS TIME.
--- NOTE | 2019-02-09 11:54 | NUR ---
JOSE DAVID AVILEZ AT BEDSIDE SPEAKING WITH PATIENT AND FAMILY.
[2019-02-09 12:51] LABS: HEMATOCRIT 20.3 % (36.0-48.0)
[2019-02-09 12:52] LABS: HEMOGLOBIN 6.5 g/dL (12-16)
--- NOTE | 2019-02-09 13:13 | NUR ---
SPOKE WITH FATMATA WILSON APN ABOUT CRITICAL HG OF 6.5. STATES SHE WILL NOTIFY DR PEREZ FOR FURTHER ORDERS.
--- NOTE | 2019-02-09 15:20 | NUR ---
PRBC INFUSION STARTED AT 100 CC/HR VIA PUMP. VSS. DENIES ANY NEEDS AT THIS TIME.
--- NOTE | 2019-02-09 17:25 | NUR ---
PRBCS INFUSING AT 125 CC/HR VIA PUMP. VSS. ENCOURAGED TO TRY TO EAT SOME DINNER.
--- NOTE | 2019-02-09 18:00 | NUR ---
1ST UNIT PRBCS COMPLETED. IV LINE FLUSHING WITH NS.
[2019-02-09 19:18] LABS: HEMATOCRIT 27.1 % (36.0-48.0)
[2019-02-09 19:19] LABS: HEMOGLOBIN 8.9 g/dL (12-16)
[2019-02-10 00:52] VITALS: BP 122/80
[2019-02-10 05:08] VITALS: BP 124/81
[2019-02-10 07:05] LABS: ALBUMIN 2.1 g/dL (3.4-5.0); ANION GAP 14.6 mmol/L (8-16); BILIRUBIN - TOTAL 0.74 mg/dL (0.2-1.3); CALCIUM 8.3 mg/dL (8.5-10.1); CARBON DIOXIDE 23.2 mmol/L (21.0-32.0); CREATININE - SERUM 1.4 mg/dL (0.6-1.3); POTASSIUM - SERUM 3.8 mmol/L (3.5-5.1); PROTEIN - SERUM 5.7 g/dL (6.4-8.2)
[2019-02-10 07:10] LABS: HEMATOCRIT 30.4 % (36.0-48.0); HEMOGLOBIN 10.3 g/dL (12-16); MCH 28.3 pg (26.0-34.0); MCHC 33.9 g/dL (31.0-37.0); MCV 83.5 fL (80.0-100.0); MEAN PLATELET VOLUME 9.9 fL (7.4-10.4); PLATELET COUNT 366 10x3/uL (130-400); RBC 3.64 10x6/uL (4.00-5.40); WBC 24.1 10x3/uL (4.8-10.8)
--- NOTE | 2019-02-10 07:55 | NUR ---
PT RESTING IN BED WITH EYES CLOSED. OPENS EYES UPON NAME BEING CALLED. NO ACUTE DISTRESS NOTED. RESP EVEN AND UNLABORED. IV TO RIGHT WRIST WITH NS @ 50ML/HR INFUSING VIA PUMP. SITE WITHOUT REDNESS OR EDEMA. DENIES PAIN AT THIS TIME. CL WITHIN REACH. ENCOURAGED TO CALL WITH NEEDS. CONTINUE POC
[2019-02-10 08:40] LABS: LYMPHOCYTES 1 % (15-50); MONOCYTES 1 % (2-11); NEUTROPHILS 86 % (40-80); PLATELET ESTIMATE NORMAL; ROULEAUX 2+
[2019-02-10 08:46] VITALS: BP 124/54
--- NOTE | 2019-02-10 10:05 | NUR ---
Nutrition Follow Up: Chart reviewed. Noted per MD he wants pt to have Boost/Ensure supplementation. Diet: Low Residue PO Intake: 38% meal avg BM: 02/03/19 - no BM x 7 meals Labs reviewed Meds noted including Dulcolax Rec continue current diet. Will order Boost/Ensure with meals. RD following.
[2019-02-10 13:47] VITALS: BP 104/41
[2019-02-10 15:44] LABS: HEMATOCRIT 30.6 % (36.0-48.0); HEMOGLOBIN 10.3 g/dL (12-16)
[2019-02-10 16:35] VITALS: BP 128/51
[2019-02-10 20:21] VITALS: BP 115/54
[2019-02-10 20:22] LABS: HEMATOCRIT 31.7 % (36.0-48.0); HEMOGLOBIN 10.5 g/dL (12-16)
[2019-02-11 03:30] VITALS: BP 128/37
[2019-02-11 07:10] LABS: BASOPHILS 0.2 % (0-2); EOSINOPHILS 0.8 % (0-7); HEMATOCRIT 29.9 % (36.0-48.0); IMMATURE GRANULOCYTES 1.8 % (0-5); LYMPHOCYTES 12.7 % (15-50); MCH 28.4 pg (26.0-34.0); MCHC 33.4 g/dL (31.0-37.0); MCV 84.9 fL (80.0-100.0); MONOCYTES 9.4 % (2-11); NEUTROPHILS 75.1 % (40-80); PLATELET COUNT 366 10x3/uL (130-400); RBC 3.52 10x6/uL (4.00-5.40); RDW 23.6 % (11.5-14.5); WBC 21.1 10x3/uL (4.8-10.8)
[2019-02-11 07:38] LABS: ANION GAP 13.8 mmol/L (8-16); BILIRUBIN - TOTAL 0.51 mg/dL (0.2-1.3); CALCIUM 8.5 mg/dL (8.5-10.1); CARBON DIOXIDE 25.1 mmol/L (21.0-32.0); CREATININE - SERUM 1.4 mg/dL (0.6-1.3); POTASSIUM - SERUM 3.9 mmol/L (3.5-5.1); PROTEIN - SERUM 5.5 g/dL (6.4-8.2)
[2019-02-11 08:00] VITALS: BP 132/56
--- NOTE | 2019-02-11 08:00 | NUR ---
ASSESSMENT COMPLETE. IV TO L WRIST PATENT. L AKA. CRIMPING PRESS OPERATOR SHOWING SR 73 PER TECH. DENIES ANY NEEDS AT THIS TIME.
--- NOTE | 2019-02-11 12:13 | NUR ---
BED LINENS CHANGED. SISTER AT BEDSIDE. DENIES ANY FURTHER NEEDS AT THIS TIME.
[2019-02-11 12:43] VITALS: BP 137/54
[2019-02-11 12:56] LABS: HEMATOCRIT 33.2 % (36.0-48.0); HEMOGLOBIN 11.1 g/dL (12-16)
--- NOTE | 2019-02-11 13:35 | NUR ---
DR WALSH BY TO SEE PATIENT AND VISITED WITH FAMILY.
--- NOTE | 2019-02-11 16:30 | NUR ---
UNABLE TO COLLECT STOOL GUIAC D/T STOOL BEING MIXED WITH URINE.
--- NOTE | 2019-02-11 16:45 | NUR ---
SITTING ON SIDE OF BED EATING DINNER.
--- NOTE | 2019-02-11 17:00 | NUR ---
REDNESS NOTED TO ROXIE AREA WHILE CLEANING PATIENT.
[2019-02-11 20:00] VITALS: BP 147/58
[2019-02-12 03:00] VITALS: BP 138/61
[2019-02-12 05:52] LABS: BASOPHILS 0.2 % (0-2); EOSINOPHILS 0.9 % (0-7); HEMATOCRIT 32.9 % (36.0-48.0); HEMOGLOBIN 10.9 g/dL (12-16); IMMATURE GRANULOCYTES 1.7 % (0-5); LYMPHOCYTES 10.5 % (15-50); MCH 28.6 pg (26.0-34.0); MCHC 33.1 g/dL (31.0-37.0); MCV 86.4 fL (80.0-100.0); MEAN PLATELET VOLUME 9.8 fL (7.4-10.4); MONOCYTES 9.6 % (2-11); NEUTROPHILS 77.1 % (40-80); RBC 3.81 10x6/uL (4.00-5.40); RDW 24.1 % (11.5-14.5); WBC 19.2 10x3/uL (4.8-10.8)
[2019-02-12 05:54] LABS: PLATELET COUNT 450 10x3/uL (130-400)
[2019-02-12 06:13] LABS: ALBUMIN 2.2 g/dL (3.4-5.0); ANION GAP 12.6 mmol/L (8-16); BILIRUBIN - TOTAL 0.5 mg/dL (0.2-1.3); CALCIUM 9.2 mg/dL (8.5-10.1); CARBON DIOXIDE 27.3 mmol/L (21.0-32.0); CREATININE - SERUM 1.7 mg/dL (0.6-1.3); POTASSIUM - SERUM 3.9 mmol/L (3.5-5.1)
--- NOTE | 2019-02-12 08:00 | NUR ---
MORNING ASSESSMENT COMPLETE. SEE ASSESSMENT FLOWSHEET FOR FURHTER DETAILS. PT LYING IN BED AAO X4 TO PERSON, PLACE, TIME, AND SITUATION. DENIES NEEDS AT THIS TIME. CL IN REACH. SIDE RAILS UP X3 FOR PT SAEFTY. BED IN LOWEST POSITION.
[2019-02-12 08:21] VITALS: BP 144/61
[2019-02-12 14:23] VITALS: BP 170/79
[2019-02-12 15:55] VITALS: BP 156/78
[2019-02-12 20:00] VITALS: BP 117/47
[2019-02-13] VITALS: BP 125/59
[2019-02-13 03:00] VITALS: BP 115/51
[2019-02-13 04:18] LABS: HEMATOCRIT 32.3 % (36.0-48.0); HEMOGLOBIN 10.8 g/dL (12-16); LYMPHOCYTES 9.8 % (15-50); MCH 29.6 pg (26.0-34.0); MCHC 33.4 g/dL (31.0-37.0); MEAN PLATELET VOLUME 9.4 fL (7.4-10.4); PLATELET COUNT 415 10x3/uL (130-400); RBC 3.65 10x6/uL (4.00-5.40); RDW 24.7 % (11.5-14.5); WBC 18.4 10x3/uL (4.8-10.8)
[2019-02-13 04:20] LABS: MCV 88.5 fL (80.0-100.0)
[2019-02-13 04:48] LABS: ANION GAP 13.9 mmol/L (8-16); CARBON DIOXIDE 26.2 mmol/L (21.0-32.0); POTASSIUM - SERUM 4.1 mmol/L (3.5-5.1)
[2019-02-13 05:57] LABS: ALBUMIN 2.4 g/dL (3.4-5.0); BILIRUBIN - TOTAL 0.42 mg/dL (0.2-1.3); CALCIUM 9.2 mg/dL (8.5-10.1); CREATININE - SERUM 1.9 mg/dL (0.6-1.3); PROTEIN - SERUM 6.6 g/dL (6.4-8.2)
--- NOTE | 2019-02-13 07:34 | NUR ---
PATIENT RESTING IN BED. ALERT AND ORIENTED. LUNGS CLEAR BILATERALLY IN ALL JUNIOR. HEART SOUNDS S1 AND S2 HEARD IN ALL JUNIOR. BOWEL SOUNDS ACTIVE X 4. SKIN INTACT WITHOUT REDNESS. TELEMETRY IN PLACE. DENIES PAIN. DENIES NEEDS. WILL CONTINUE TO MONITOR.
[2019-02-13 09:19] VITALS: BP 139/70
--- NOTE | 2019-02-13 10:00 | NUR ---
PATIENT SITTING IN BED EATING BREAKFAST. DENIES NEEDS
[2019-02-13 13:10] VITALS: BP 113/47
--- NOTE | 2019-02-13 13:15 | NUR ---
PATIENT LYING IN BED EATING LUNCH. EDUCATION PROVIDED ON USE OF SCD. SCD PLACED ON RIGHT LEG. DENIES PAIN. DENIES FURTHER NEEDS.
--- NOTE | 2019-02-13 13:42 | NUR ---
EDUCATION PROVIDED ON NEED FOR UA. SUPPLIES IN ROOM
--- NOTE | 2019-02-13 15:29 | NUR ---
ATTEMPTED TO COLLECT UA. NOT ENOUGH URINE PROVIDED. EDUCATION PROVIDED TO PATIENT. WILL ATTEMPT TO COLLECT AT NEXT VOID
--- NOTE | 2019-02-13 15:57 | NUR ---
URINE SPECIMEN COLLECTED AND TAKEN TO LAB
[2019-02-13 16:16] VITALS: BP 128/84
[2019-02-13 17:39] LABS: APPEARANCE CLEAR (CLEAR); BILIRUBIN NEGATIVE (NEGATIVE); COLOR YELLOW (YELLOW); GLUCOSE NEGATIVE (NEGATIVE); KETONE NEGATIVE (NEGATIVE); NITRITE NEGATIVE (NEGATIVE); PROTEIN NEGATIVE (NEGATIVE); SPECIFIC GRAVITY 1.015 (1.005-1.020); UROBILINOGEN NORMAL (NORMAL)
--- NOTE | 2019-02-13 17:42 | NUR ---
SITTING IN BED EATING DINNER. SCD REMOVED PER REQUEST. DENIES NEEDS
[2019-02-13 17:49] LABS: BACTERIA FEW /hpf (NONE SEEN); EPITHELIAL CELLS 0-5 /hpf (0-5); RED CELLS - URINE 0-5 /hpf (0-5); WHITE CELLS - URINE 0-5 /hpf (0-5)
--- NOTE | 2019-02-13 18:35 | NUR ---
PATIENT LYING IN BED. DENIES NEEDS
--- NOTE | 2019-02-13 20:00 | NUR ---
ALERT RESTING IN BED, NO APPARENT DISTRESS, SEE SHIFT ASSESSMENT, CALL LIGHT IN REACH
[2019-02-13 21:20] VITALS: BP 124/50
--- NOTE | 2019-02-13 22:30 | NUR ---
BLADDER SCAN DONE ORDERED, SCANED X 3 WITH 98ML, 127ML AND 131ML RESULTED. PT HAD VOIDED 30 MIN PRIOR 100ML
[2019-02-14 00:26] VITALS: BP 138/60
[2019-02-14 04:38] VITALS: BP 120/54
[2019-02-14 06:05] LABS: BASOPHILS 0.2 % (0-2); EOSINOPHILS 0.9 % (0-7); HEMOGLOBIN 10.4 g/dL (12-16); IMMATURE GRANULOCYTES 1.1 % (0-5); LYMPHOCYTES 11.9 % (15-50); MCH 28.3 pg (26.0-34.0); MCHC 32.5 g/dL (31.0-37.0); MEAN PLATELET VOLUME 9.9 fL (7.4-10.4); MONOCYTES 12.3 % (2-11); NEUTROPHILS 73.6 % (40-80); PLATELET COUNT 369 10x3/uL (130-400); RBC 3.68 10x6/uL (4.00-5.40); RDW 23.6 % (11.5-14.5); WBC 19.8 10x3/uL (4.8-10.8)
[2019-02-14 07:09] LABS: ALBUMIN 2.3 g/dL (3.4-5.0); ANION GAP 15.4 mmol/L (8-16); BILIRUBIN - TOTAL 0.36 mg/dL (0.2-1.3); CARBON DIOXIDE 25.7 mmol/L (21.0-32.0); POTASSIUM - SERUM 4.1 mmol/L (3.5-5.1)
--- NOTE | 2019-02-14 07:35 | NUR ---
PT RESTING IN BED WITH EYES CLOSED. NO ACUTE DISTRESS NOTED. RESP EVEN AND UNLABORED. REPORTS PAIN 3/10 AT THIS TIME. IV TO LEFT WRIST WITH NS @ KVO INFUSING VIA PUMP. SITE WITHOUT REDNESS OR EDEMA. DENIES FURTHER NEEDS AT THIS TIME. CL WITHIN REACH. ENCOURAGED TO CALL WITH NEEDS. CONTINUE POC
[2019-02-14 08:29] VITALS: BP 125/56
[2019-02-14 12:30] VITALS: BP 110/48
[2019-02-14 16:05] VITALS: BP 109/45
--- NOTE | 2019-02-14 19:55 | NUR ---
OT NOTE: PT COMPLETED BED MOB WITH MIN A. PT COMPLETED SUPINE TO SIT WITH MIN A. PT COMPLETED GROOMING TASK WITH SET UP. 201/309 THANK YOU, FAITH MICHAEL
--- NOTE | 2019-02-14 20:00 | NUR ---
ALERT SITTING UP IN BED, NO APPARENT DISTRESS, SEE SHIFT ASSESMENT, CALL LIGHT IN REACH
[2019-02-14 22:16] VITALS: BP 115/52
[2019-02-15 04:51] VITALS: BP 124/60
[2019-02-15 05:27] LABS: BASOPHILS 0.2 % (0-2); HEMATOCRIT 31.4 % (36.0-48.0); HEMOGLOBIN 10.4 g/dL (12-16); MCH 28.6 pg (26.0-34.0); MCHC 33.1 g/dL (31.0-37.0); MCV 86.3 fL (80.0-100.0); NEUTROPHILS 69.8 % (40-80); PLATELET COUNT 321 10x3/uL (130-400); RBC 3.64 10x6/uL (4.00-5.40); RDW 22.8 % (11.5-14.5); WBC 16.5 10x3/uL (4.8-10.8)
[2019-02-15 05:45] LABS: ALBUMIN 2.2 g/dL (3.4-5.0); ANION GAP 11.8 mmol/L (8-16); BILIRUBIN - TOTAL 0.33 mg/dL (0.2-1.3); CALCIUM 9.2 mg/dL (8.5-10.1); CARBON DIOXIDE 26.1 mmol/L (21.0-32.0); CREATININE - SERUM 1.8 mg/dL (0.6-1.3); POTASSIUM - SERUM 3.9 mmol/L (3.5-5.1); PROTEIN - SERUM 5.9 g/dL (6.4-8.2)
--- NOTE | 2019-02-15 07:56 | NUR ---
PT RETURNED FROM EGD. NO S/S OF ACUTE DISTRESS. CO OF NAUSEA. CL IN PLACE.
[2019-02-15 08:30] VITALS: BP 120/46
[2019-02-15 14:08] VITALS: BP 100/44
--- NOTE | 2019-02-15 14:15 | MORECARE ---
CASE MANAGEMENT DISCHARGE SUMMARY PATIENT: VINI CHACON UNIT: [id number] ADM DATE: 02/01/19 AGE: 68 : 50 SEX: F ROOM/BED: D.2207 AUTHOR: JACQUELIN,DOC PHYSICIAN: REFERRING PHYSICIAN: SHINE FLORES MD DATE OF SERVICE: 02/15/19 Discharge Plan Patient Name: VINI CHACON Facility: [facility]:[place] : 1950 Planned Disposition: Home Anticipated Discharge Date: Discharge Date: Expected LOS: Initial Reviewer: [email or web address] Initial Review Date: 02/01/2019 Generated: 02/15/19 3:15 pm Comments DCP- Discharge Planning Updated by [email or web address]: Pamela Edwards on 02/15/19 1:[address] Spoke with patient and mother and she stated that she wanted to go home with home health and did not want to go to rehab. OMAR with [facility], she also inquired about help at home. Information given and OMAR with [facility]. I will fax clinical information to both places. IMM served and explained. CM will continue to follow and assist with dc planning DCP- Discharge Planning Updated by [email or web address]: Marla Padilla on 02/07/19 11:[address] Patient Name: VINI CHACON Admission Status: ER Accout number: [id number] Admission Date: 02-01-2019 : 1950 Admission Diagnosis:SEPSIS, UNSPECIFIED ORGANISM Attending: SHINE FLORES Current LOS: 7 Anticipated DC Date: Planned Disposition: Home Primary Insurance: [facility] MEDICARE SOLUTIONS Discharge Planning Comments: CM met with patient at bedside after explaining CM role and obtaining verbal consent. Patient lives at home with her Mother and plans to return there upon discharge. Patient feels this would be a safe discharge. CM discussed availability / needs of home health and medical equipment. Patient did state she had home health services in the past, but can't recall the name. Patient states her Mother will know but she doesn't want to use that company again. OMAR form not signed at this time. CM will continue to follow and assist as needed with discharge planning / needs. Wheel Press Operator: Marla Padilla DCPIA - Discharge Planning Initial Assessment Updated by [email or web address]: Marla Padilla on 02/08/19 12:17 am * Is the patient Alert and Oriented? Yes * How many steps to enter\exit or inside your home? RAMP * PCP GRACIELA * Pharmacy CAN'T REMEMBER NAME * Preadmission Environment Home with Family * ADLs Independent * Other Equipment SHOWER CHAIR, BSC, WHEELCHAIR, WALKER * List name and contact numbers for known caregivers / representatives who currently or will assist patient after discharge: TULIO CAMPOS - [facility]- [phone] * Verbal permission to speak to the caregivers and representatives has been obtained from the patient. Yes * Community resources currently utilized None * Additional services required to return to the preadmission environment? No * Can the patient safely return to the preadmission environment? Yes * Has this patient been hospitalized within the prior 30 days at any hospital? No External Providers External Provider: [facility] Next Contact Date: Service Request Date: Service Type: Resolution: Reviewer: Comments: Coverage Notice Reviewer: [email or web address] Arron Edwards Notice Issued Date-Time: 02/15/2019 14:00 Notice Type: IM Discharge Notice Notice Delivered To: Patient Relationship to Patient: Phlebotomy Director Name: Delivery Method: HAND - Hand Delivered Gail Days: Prior Verbal Notification: Recipient Understood Notice: Yes Recipient Signature: Yes Med Rec Note Co-signed by Attending: Coverage Notice Comment: Reviewer: [id number] Edwards Notice Issued Date-Time: 02/15/2019 14:00 Notice Type: Patient Choice Letter Notice Delivered To: Patient Relationship to Patient: Phlebotomy Director Name: Delivery Method: - Gail Days: Prior Verbal Notification: Recipient Understood Notice: Recipient Signature: Med Rec Note Co-signed by Attending: Coverage Notice Comment: Last DP export: 02/07/19 11:24 p Patient Name: VINI CHACON Page 10886 at 1415 All edits/amendments must be made on the electronic document DICTATION DATE: 02/15/191414 ACCESS ASSOC: KIM 02/15/191414 RPT#: [id number] DC DATE: STATUS: ADM IN [facility] [address] [place] [address] END OF REPORT
[2019-02-15 16:44] VITALS: BP 109/43
--- NOTE | 2019-02-15 17:05 | NUR ---
OT NOTE: BED MOB IWTH SPV; TRANSFER FROM BED TO CHAIR WITH WALKER WITH MIN/MOD ASSIST. GROOMING AND UE DRESSING WITH SETUP. TJ LOVE, OTR/L
--- NOTE | 2019-02-15 17:58 | NUR ---
PT RESTING IN BED. QUESTIONING , "WHY WILL I DC HOME TOMORROW." EXPLAINED TO PT THERE WAS A SCREEN FOR REHAB IN THE COMPUTER. PT "NOT SURE ABOUT THAT". SUGGESTED PT TO SPEAK WITH CM IN THE AM ABOUT DC PLANS. NO S/S OF ACUTE DISTRESS. CL IN PLACE.
--- NOTE | 2019-02-15 20:00 | NUR ---
RESTING IN BED NO C/O OR REQUEST , SEE SHIFT ASSESSMENT, CALL LIGHT IN REACH
[2019-02-15 22:53] VITALS: BP 108/48
[2019-02-16 05:20] LABS: BASOPHILS 0.2 % (0-2); EOSINOPHILS 2.1 % (0-7); HEMATOCRIT 28.9 % (36.0-48.0); HEMOGLOBIN 9.4 g/dL (12-16); IMMATURE GRANULOCYTES 0.8 % (0-5); LYMPHOCYTES 17.5 % (15-50); MCH 28.3 pg (26.0-34.0); MCHC 32.5 g/dL (31.0-37.0); MEAN PLATELET VOLUME 9.7 fL (7.4-10.4); MONOCYTES 13.8 % (2-11); NEUTROPHILS 65.6 % (40-80); PLATELET COUNT 262 10x3/uL (130-400); RBC 3.32 10x6/uL (4.00-5.40); RDW 22.6 % (11.5-14.5); WBC 15.4 10x3/uL (4.8-10.8)
[2019-02-16 05:24] VITALS: BP 112/60
[2019-02-16 05:40] LABS: ALBUMIN 2.1 g/dL (3.4-5.0); ANION GAP 12.5 mmol/L (8-16); BILIRUBIN - TOTAL 0.22 mg/dL (0.2-1.3); CALCIUM 8.9 mg/dL (8.5-10.1); CARBON DIOXIDE 25.6 mmol/L (21.0-32.0); CREATININE - SERUM 1.6 mg/dL (0.6-1.3); POTASSIUM - SERUM 4.1 mmol/L (3.5-5.1); PROTEIN - SERUM 5.7 g/dL (6.4-8.2)
--- NOTE | 2019-02-16 08:00 | NUR ---
AWAKE AND ALERT. ORIENTED X3. NO C/O AT THIS TIME. ASSISTED WITH BED FOY, WAS INCONTINENT AND USED THE BEDPAN. SKIN CARE AND LINEN CHANGED PER STAFF. LUNGS ARE DIMIINISHED THROUGHOUT AND CRACKLES, OCCASSIONAL DRY COUGH NOTED. SKIN IS INTACT WITHOUT REDNESS. IV TO LEFT FOREARM IS PATENT WITHOUT REDNESS AT INSERTION SITE. DENIES NEEDS. BREAKFAST SERVED IN ROOM.
[2019-02-16 08:40] VITALS: BP 108/44
[2019-02-16 12:40] VITALS: BP 102/47
--- NOTE | 2019-02-16 15:43 | NUR ---
OT NOTE: PT RESISTANT TO TRANSFER TO CHAIR DUE TO REPORTED DIARRHEA.. PT ABLE TO PERFORM BED MOB WITHOUT ASSIST; GOOD SITTING BALANCE ON EOB; UE STRENGTHENING EXS. TJ LOVE, OTR/L
--- NOTE | 2019-02-16 16:03 | NUR ---
OT NOTE: PT COMPLETED BED MOB TASKS WITH SBA. PT COMPLETED UPRIGHT SITTING AT EOB WITH SBA. PT COMPLETED HAIR GROOMING AND FACE WASHING WITH SETUP. THANK YOU, FAITH MICHAEL
[2019-02-16 17:34] VITALS: BP 119/47
--- NOTE | 2019-02-16 20:00 | NUR ---
ALERT RESTING IN BED NO APPARENT DISTRESS CALL LIGHT IN REACH, SEE SHIFT ASSESSMENT
[2019-02-16 20:49] VITALS: BP 101/44
[2019-02-17] VITALS (7 sets, daily range): BP systolic 90–133; BP diastolic 45–85
[2019-02-17 04:17] LABS: BASOPHILS 0.3 % (0-2); EOSINOPHILS 2.4 % (0-7); HEMATOCRIT 30.3 % (36.0-48.0); HEMOGLOBIN 9.9 g/dL (12-16); IMMATURE GRANULOCYTES 0.5 % (0-5); LYMPHOCYTES 23.5 % (15-50); MCH 28.6 pg (26.0-34.0); MCHC 32.7 g/dL (31.0-37.0); MCV 87.6 fL (80.0-100.0); MEAN PLATELET VOLUME 10.9 fL (7.4-10.4); MONOCYTES 13.6 % (2-11); NEUTROPHILS 59.7 % (40-80); PLATELET COUNT 267 10x3/uL (130-400); RBC 3.46 10x6/uL (4.00-5.40); RDW 22.4 % (11.5-14.5); WBC 12.8 10x3/uL (4.8-10.8)
[2019-02-17 04:31] LABS: ALBUMIN 2.3 g/dL (3.4-5.0); ANION GAP 14.3 mmol/L (8-16); BILIRUBIN - TOTAL 0.2 mg/dL (0.2-1.3); CARBON DIOXIDE 23.8 mmol/L (21.0-32.0); CREATININE - SERUM 1.7 mg/dL (0.6-1.3); POTASSIUM - SERUM 4.1 mmol/L (3.5-5.1); PROTEIN - SERUM 6.3 g/dL (6.4-8.2)
--- NOTE | 2019-02-17 07:50 | NUR ---
PT RESTING IN BED WATCHING TV. MOOD PLEASANT. NO ACUTE DISTRESS NOTED. DENIES PAIN AT THIS TIME. IV TO LEFT WRIST WITH NS @ 50ML/HR INFUSING VIA PUMP. SITE WITHOUT REDNESS OR EDEMA. DENIES FURTHER NEEDS AT THIS TIME. CL WITHIN REACH. ENCOURAGED TO CALL WITH NEEDS. CONTINUE POC
--- NOTE | 2019-02-17 14:04 | NUR ---
OT NOTE: PERFORMED BED MOB WITH SPV; EOB SITTING WITH SPV..PT WANTED TO GET DRESSED SHE WAS TOLD THAT SHE WAS DCING TODAY, HOWEVER, WAS TOLD TO WAIT UNTIL DC PAPERS ARE IN PROGRESS. ABLE TO PERFORM GROOMING TASKS WITH SET UP..FEEDING WITH SET UP. QUESTIONS ANSWERED REGARDING HH SERVICES.([id number]) TJ LOVE, OTR/L
[2019-02-17 15:54] LABS: APPEARANCE CLEAR (CLEAR); COLOR YELLOW (YELLOW)
[2019-02-17 15:56] LABS: BILIRUBIN NEGATIVE (NEGATIVE); GLUCOSE NEGATIVE (NEGATIVE); KETONE NEGATIVE (NEGATIVE); NITRITE NEGATIVE (NEGATIVE); PROTEIN NEGATIVE (NEGATIVE); UROBILINOGEN NORMAL (NORMAL)
--- NOTE | 2019-02-17 20:28 | NUR ---
PT VOMITED APPROX 200 ML OF DARK RED BLOOD CLOTS. CALLED MD AND RECEIVED ORDER TO START PROTONIX DRIP AND TRANSFER TO ICU. METAL FABRICATING SHOP HELPER NOTIFIED OF NEED FOR ICU BED.
--- NOTE | 2019-02-17 21:15 | NUR ---
REPORT GIVEN TO HOLLY, NAYELI AND PT TRANSPORTED TO ROOM 2304 VIA BED. MOVED TO NEW ICU BED WITH ASSISTANCE. GAVE PROTONIX TO RN TO START. PT CALLED HER FAMILY TO NOTIFY THAT SHE WAS BEING TRANSFERRED.
--- NOTE | 2019-02-17 21:16 | NUR ---
PT ARRIVED TO ROOM 2304 FROM FLOOR ACCOMPANIED BY NURSE AND TECH, PT ASSISTED OVER TO BED, AWAKE, ALERT, AND ORIENTED X 3, ON ROOM AIR, COMPLAINS OF NAUSEA, EMESIS BAG WITHIN REACH, CM-SR @ 61, LEFT WRIST PIV SALINE LOCKED, PROTONIX GTT RECEIVED FROM NAYELI BRUMFIELD, PROTONIX BEGAN VIA LEFT WRIST PIV @ 8MG/HR OR 10CC/HR, BP STABLE, WILL MONITOR CLOSELY FOR CHANGES, SR UP X 2, CALL LIGHT IN REACH.
--- NOTE | 2019-02-17 22:00 | NUR ---
PT RESTING QUIELTY WATCHING TV, REPORTS NAUSEA HAS IMPROVED, WATER PROVIDED ON REQUEST, THERMOSTAT ADJUSTED FOR COMPLAINTS OF BEING COLD, PREVIOUS LEFT AKA, PT DENIES FURTHER NEEDS.
--- NOTE | 2019-02-17 23:15 | NUR ---
PT RESTING EYES CLOSED, RESP EVEN AND UNLABORED, VSS, NO DISTRESS NOTED, SR UP X 2, CALL LIGHT IN REACH.
[2019-02-18] VITALS (24 sets, daily range): BP systolic 90–134; BP diastolic 44–73
--- NOTE | 2019-02-18 01:30 | NUR ---
NO CHANGES IN STATUS AT THIS TIME
[2019-02-18 03:31] LABS: BASOPHILS 0.4 % (0-2); EOSINOPHILS 1.8 % (0-7); HEMATOCRIT 28.3 % (36.0-48.0); HEMOGLOBIN 9.3 g/dL (12-16); IMMATURE GRANULOCYTES 0.5 % (0-5); LYMPHOCYTES 17.2 % (15-50); MCH 28.6 pg (26.0-34.0); MCHC 32.9 g/dL (31.0-37.0); MCV 87.1 fL (80.0-100.0); MEAN PLATELET VOLUME 10.6 fL (7.4-10.4); MONOCYTES 12.1 % (2-11); PLATELET COUNT 235 10x3/uL (130-400); RBC 3.25 10x6/uL (4.00-5.40)
[2019-02-18 03:35] LABS: WBC 16.5 10x3/uL (4.8-10.8)
[2019-02-18 03:46] LABS: ALBUMIN 2.2 g/dL (3.4-5.0); ANION GAP 13.5 mmol/L (8-16); BILIRUBIN - TOTAL 0.21 mg/dL (0.2-1.3); CALCIUM 8.9 mg/dL (8.5-10.1); CARBON DIOXIDE 22.8 mmol/L (21.0-32.0); CREATININE - SERUM 1.5 mg/dL (0.6-1.3); POTASSIUM - SERUM 4.3 mmol/L (3.5-5.1)
--- NOTE | 2019-02-18 04:00 | NUR ---
REASSESSMENT COMPLETED, PT RESTING EYES CLOSED RESP EVEN AND UNLABORED, VSS, CM-SR, PROTONIX GTT CONTINUES, WILL CONTINUE TO MONITOR CLOSELY FOR CHANGES.
--- NOTE | 2019-02-18 06:30 | NUR ---
AM MEDS GIVEN, NO VISITORS IN AT THIS TIME, VSS.
--- NOTE | 2019-02-18 07:05 | NUR ---
REPORT RECEIVED FROM PAYER SPECIALIST AND PATIENT CARE ASSUMED. PATIENT LAYING IN BED ON BACK AWAKE, ALERT AND ORIENTED X 4. PATIENT IS STABLE AND VSS. PATIENT DENIES ANY NEEDS OR PAIN. WILL CONTINUE TO MONITOR. SR UP X 2 BED IN LOW POSITION AND CALL LIGHT IN REACH.
--- NOTE | 2019-02-18 09:00 | NUR ---
PATIENT ASSESSMENT COMPLETED. FRIEND AT BEDSIDE. WILL CONTINUE TO MONITOR. SR UP X 2 BED IN LOW POSITION AND CALL LIGHT IN REACH.
--- NOTE | 2019-02-18 15:00 | NUR ---
PATIENT IS UNCHANGED AND VSS. PATIENT LAYING IN BED ON BACK WITH EYES CLOSED AND BREATHING EVENLY. WILL CONTINUE TO MONITOR. SR UP X 2 BED IN LOW POSITION AND CALL LIGHT IN REACH.
--- NOTE | 2019-02-18 15:15 | NUR ---
PATIENT RE-ASSESSMENT COMPLETED.
--- NOTE | 2019-02-18 16:14 | NUR ---
PATIENT IS STABLE AND VSS. PD INITIATED AMD COMPLETED. 1500 CC 1.5% DIALYSIS SOLUTION INSTILLED AND 1600CC CLEAR, YELLOW LIQUID REMOVED. PATIENT REMAINS STABLE AND VSS.PATIENT RESTING COMFORTABLY AND DENIES ANY NEWEDS OR PAIN. ANTERIOR NECK INCISION DRSG C/D/I. WILL CONTINUE TO MONITOR. SR UP X 2 BED IN LOW POSTION AND CALL LIGHT IN REACH.
--- NOTE | 2019-02-18 17:43 | NUR ---
PATIENT IS STABLE AND VSS. NO NAUSEA OR EMESIS. PATIENT STATES SHE REALLY ENJOYED SUPPER AND WANTS TO GO HOME. VISITING WITH FRIEND AT BEDSIDE. WILL CONTINUE TO MONITOR.
--- NOTE | 2019-02-18 19:30 | NUR ---
REPORT REC'D AND ARE ASSUMED, REC'D PT AWAKE, ALERT, AND ORIENTED X 4 ON ROOM AIR, LEFT WRIST PIV WITH NS @ 100CC/HR AND PROTONIX @ 10CC/HR, PT DENIES NAUSEA OR PAIN, PREVIOUS LEFT AKA, BED IN LOW POSITION, CALL LIGHT IN REACH.
--- NOTE | 2019-02-18 20:00 | NUR ---
PT PLACED ON BEDPAN TO VOID, PT VOIDED 150CC CLEAR YELLOW URINE, PT ASSISTED TO REPOSITION FOR COMFORT, DENIES FURTHER NEEDS.
--- NOTE | 2019-02-18 21:00 | NUR ---
EVENING MEDS GIVEN ORDERED, NO VISITORS IN AT THIS TIME, VSS, WILL MONITOR FOR CHANGES.
--- NOTE | 2019-02-18 23:00 | NUR ---
REASSESSMENT COMPLETED, PT RESTING EYES CLOSED, RESP EVEN AND UNLABORED, VSS.
[2019-02-19] VITALS (15 sets, daily range): BP systolic 96–140; BP diastolic 35–61
--- NOTE | 2019-02-19 01:30 | NUR ---
PT AWAKE, REQUESTING BEDPAN, PT PLACED ON BEDPAN, CALL LIGHT IN REACH.
--- NOTE | 2019-02-19 02:20 | NUR ---
PT PLACED ON BEDPAN TO VOID, PT VOIDED 300CC CLEAR YELLOW URINE, REPOSITIONED IN BED, DENIES NEEDS, WILL CONT TO MONITOR FOR CHANGES.
--- NOTE | 2019-02-19 02:40 | NUR ---
PT REMOVED FROM BEDPAN, LINENS WET, PARTIAL BATH AND LINEN CHANGE PROVIDED, PT REPOSITIONED UP IN BED FOR COMFORT, PT DENIES PAIN OR NAUSEA, BED IN LOW POSITION, CALL LIGHT IN REACH.
--- NOTE | 2019-02-19 03:10 | NUR ---
PT AWAKE WATCHING TV, REASSESSMENT COMPLETED, NO CHANGES FROM PREVIOUS ASSESSMENT, LEFT WRIST PIV WITH PROTONIX @ 10CC/HR AND NS @ 100CC/HR, PT REQUESTING BEDPAN, VOIDED 250CC CLEAR YELLOW URINE, PERICARE DONE INDEPENDENTLY, PT DENIES FURTHER NEEDS.
--- NOTE | 2019-02-19 05:30 | NUR ---
PT RESTING IN BED EYES CLOSED, RESP EVEN AND UNLABORED, VSS, WILL REPORT TO ONCOMING SHIFT, SR UP X 2, BED IN LOW POSITION, CALL LIGHT IN REACH.
--- NOTE | 2019-02-19 07:22 | NUR ---
SHIFT REPORT RECIEVED. A&OX4. DENIES HAVING PAIN AT THIS TIME. INCONTINENT EPISODE OF URINE NOTED AT THIS TIME. PARTIAL LINEN CHANGE PROVIDED. PERICARE PROVIDED. VSS. NO FEVER NOTED. HAS 20G PIV ON L-WRIST. L-AKA. ON ROOM AIR. SHIFT ASSESSMENT COMPLETED. BED LOW POSITION. CALL LIGHT IN REACH. NO FRUTHER NEEDS AT THIS TIME. WILL CONTINUE TO MONITOR.
--- NOTE | 2019-02-19 08:41 | NUR ---
BED FOY PROVIDED. VOIDED ABOUT 200ML/HR. CLEAN PROTECTIVE BED PAD PROVIDED.
--- NOTE | 2019-02-19 11:26 | NUR ---
DR. PEREZ AT BEDSIDE. CAN TRANSFER TO FLOOR FROM HIS STANDPOINT. ORDERED PROTONIX DRIP TO BE DISCONTINUED. ADD 40MG IV PROTONIX BID.
--- NOTE | 2019-02-19 11:30 | NUR ---
BED FOY PROVIDED. VOIDED ABOUT 200ML OF CLEAR YELLOW URINE. MEAL TRAY DELIVERED AND SET UP. DENIES ANY PAIN. WILL CONTINUE TO MONITOR.
--- NOTE | 2019-02-19 13:00 | NUR ---
BATH WITH HIBICLEANSE FORMULA GIVEN AT THIS TIME. COMPLETE LINEN CHANGE PROVIDED. PULLED UP AND REPOSITIONED FOR COMFORT. L-WRIST PIV LEAKING. DC'D WITH CATHETER TIP INTACT. NO FURTHER NEEDS. WILL CONTINUE TO MONITOR.
--- NOTE | 2019-02-19 14:12 | NUR ---
PT NOT WANTING IV RE-INSERTED AT THIS TIME. DR. FLORES NOTIFIED. HE SAID IT'S OK TO NOT INSERT IV BACK. WILL CHANGE IV PROTONIX TO PO.
--- NOTE | 2019-02-19 14:21 | NUR ---
PT HAS TRANSFER ORDERS TO FLOOR. ATTEMPTED TO CALL REPORT. RECEIVING NURSE UNABLE TO TAKE REPORT AT THIS TIME. SHE WILL CALL ME WHEN AVALABLE.
--- NOTE | 2019-02-19 14:58 | NUR ---
TRANSFERRED TO ROOM 2222 VIA BED. CHART DELIVERED TO AGRICULTURAL SPECIALIST. REPORT CALLED TO RICHARD. CLIVE BELONGINGS SENT WITH PATIENT. PT NOTIFIED FAMILY TO WHICH ROOM SHE WAS BEING TRANSFERRED TO.
--- NOTE | 2019-02-19 15:12 | NUR ---
PATIENT RECEIVED. SOME BILAT BRUISES ON THE ARM. NO IV ACCESS. PEDAL AND RADIAL PULSES PALPABLE. LUNG SOUNDS ARE CTA, HR S1, S2 HEARD. BOWEL SOUNDS HYPOACTIVE X 4. SOME REDNESS ON LEFT COCCYX THAT BLANCHES. REQUESTED SHAMPOO IN A CAP AND RECEIVED. WCTM
--- NOTE | 2019-02-19 19:30 | NUR ---
PT LYING IN BED RESTING, NO SIGNS OF DISTRESS. ALERT AND ORIENTED. LUNGS SOUNDS CTA. NO IV ACCESS. DENIES PAIN. PLACED PT ON AND OFF BEDPAN TO VOID. NO OTHER NEEDS AT THIS TIME. CL IN REACH,WILL CONT TO MONITOR
[2019-02-20] VITALS: BP 110/45
[2019-02-20 03:00] VITALS: BP 108/53
[2019-02-20 04:33] LABS: BASOPHILS 0.6 % (0-2); EOSINOPHILS 3.3 % (0-7); HEMATOCRIT 27.1 % (36.0-48.0); HEMOGLOBIN 8.8 g/dL (12-16); IMMATURE GRANULOCYTES 0.5 % (0-5); LYMPHOCYTES 19.2 % (15-50); MCH 28.4 pg (26.0-34.0); MCHC 32.5 g/dL (31.0-37.0); MCV 87.4 fL (80.0-100.0); MEAN PLATELET VOLUME 11.3 fL (7.4-10.4); MONOCYTES 12.6 % (2-11); NEUTROPHILS 63.8 % (40-80); PLATELET COUNT 222 10x3/uL (130-400); RDW 22.5 % (11.5-14.5); WBC 12.5 10x3/uL (4.8-10.8)
[2019-02-20 04:43] LABS: CALCIUM 8.9 mg/dL (8.5-10.1); CARBON DIOXIDE 26.1 mmol/L (21.0-32.0); CREATININE - SERUM 1.9 mg/dL (0.6-1.3); POTASSIUM - SERUM 4.1 mmol/L (3.5-5.1)
[2019-02-20 08:04] VITALS: BP 110/68
--- NOTE | 2019-02-20 08:25 | NUR ---
PT LYING IN BED, LINUX SERVER ENGINEER OBTAIED VITALS, PER MACHINE, PT BP IS 85/43 OBTAINED MANUALLY AND I READ 110/68 ON MY CUFF, ADVISED LINUX SERVER ENGINEER TO TAKE MANUALLY IF READINGS ARE EVER LOW. NO NEEDS VOICED, BED IN LOW POSITION, CL IN REACH. CONTINUE WITH PLAN OF CARE
--- NOTE | 2019-02-20 11:34 | NUR ---
PT C/O ABD PAIN ASKED IF PT IS HURTING OR JUST NAUSEOUS, PT STATES MORE NAUSEOUS THAN ANYTHING, ORDERED ODT ZOFRAN FOR PT DUC TO NO IV ACCESS. ADMINISTERED MEDICATION. NO OTHER NEEDS VOICED, CONTINUE WITH PLAN OF CARE
--- NOTE | 2019-02-20 15:02 | NUR ---
PT HAD A STOOL WITH DARK BLOOD PER PT, DID NOT SEE STOOL, CO WORKER RN ALEKS STATED IT WAS BLOOD TINGED, PT HAS HX OF GASTRITIS AND ULCERS AND HAD 2 EGD'S WITHIN 2 WEEKS, H&H BEING MONITORED, NO OTHER NEEDS VOICED
[2019-02-20 16:00] VITALS: BP 108/45
--- NOTE | 2019-02-20 16:09 | NUR ---
WHILE IN PT ROOM TO ADMINISTER MEDS PER MAR, PT BECAME NAUSEOUS AND STARTED TO VOMIT, BIG CLOTS OF DARK RED SUBSTANCES COMING OUT OF PT MOUTH 200MLS MEASURED. CONTINUE WITH PLAN OF CARE
[2019-02-20 17:56] VITALS: Ht 162.6 cm; Wt 47.2 kg
--- NOTE | 2019-02-20 18:45 | NUR ---
I have reviewed this patient and I concur with the Shift Assessment completed by the Licensed Practical Nurse today this shift.
--- NOTE | 2019-02-20 20:00 | NUR ---
ASSESSMENT PER FLOWSHEET. PLACED ON BEDPAN. PT HAD MODERATE DARK BLOODY STOOL SPECIMEN OBTAINED AND SENT TO LAB. NO EMESIS NOTED. NO IV.
[2019-02-20 20:11] VITALS: BP 129/60
--- NOTE | 2019-02-20 21:00 | NUR ---
MEDS GIVEN PER MAR.
--- NOTE | 2019-02-20 23:00 | NUR ---
PLACED ON BEDPAN VOIDS FREELY.
--- NOTE | 2019-02-21 00:01 | NUR ---
EYES CLOSED RESPIRATIONS WITH EASE AND UNLABORED.
[2019-02-21 00:20] VITALS: BP 124/46
--- NOTE | 2019-02-21 01:46 | NUR ---
PLACED ON BEDPAN VOIDS FREELY. REPOSITIONED IN BED SR UP X2 CALL LIGHT WITHIN ERACH.
--- NOTE | 2019-02-21 03:16 | NUR ---
EYES CLOSED RESPIRATIONS WITH EASE AND UNLABORED.
[2019-02-21 04:55] VITALS: BP 127/49
[2019-02-21 05:57] LABS: ANION GAP 15.3 mmol/L (8-16); CALCIUM 8.8 mg/dL (8.5-10.1); CARBON DIOXIDE 24.3 mmol/L (21.0-32.0); MAGNESIUM - SERUM 2.1 mg/dL (1.8-2.4); POTASSIUM - SERUM 4.6 mmol/L (3.5-5.1)
[2019-02-21 07:31] LABS: HEMATOCRIT 23.2 % (36.0-48.0); MCHC 31.9 g/dL (31.0-37.0); MCV 87.9 fL (80.0-100.0); MEAN PLATELET VOLUME 11.7 fL (7.4-10.4); PLATELET COUNT 335 10x3/uL (130-400); RBC 2.64 10x6/uL (4.00-5.40); RDW 22.6 % (11.5-14.5); WBC 23.3 10x3/uL (4.8-10.8)
[2019-02-21 07:33] LABS: HEMOGLOBIN 7.4 g/dL (12-16)
--- NOTE | 2019-02-21 07:50 | NUR ---
HGB REPORTED OF 7.4 WILL NOTIFY THE DRBecca
[2019-02-21 08:19] LABS: ANISOCYTOSIS 1+; LYMPHOCYTES 13 % (15-50); MONOCYTES 5 % (2-11); NEUTROPHILS 69 % (40-80); POLYCHROMASIA OCC; ROULEAUX OCC; TOXIC GRANULATION OCC
[2019-02-21 09:04] LABS: PLATELET ESTIMATE NORMAL
[2019-02-21 09:33] VITALS: BP 136/50
--- NOTE | 2019-02-21 11:28 | NUR ---
INFORMED ABOUT HGB AND WBC, WAS TOLD TO HOLD ALL BLOOD THINNERS
[2019-02-21 12:00] VITALS: BP 118/31
--- NOTE | 2019-02-21 12:07 | NUR ---
Nutrition Follow Up: Full liquid diet today. Pt reports she refused all meals yesterday Pt reports she ate 50% of breakfast today and then had N/V Pt has lost 18lb since admit Severe malnutrition r/t illness AEB 18lb weight loss past 20 days and <50% intake of meals >5days Will add supplement Spoke with nursing: REC: May want to consider alternate nutrition support RD following
[2019-02-21 15:01] VITALS: BP 137/56
--- NOTE | 2019-02-21 18:41 | NUR ---
I have reviewed this patient and I concur with the Shift Assessment completed by the Licensed Practical Nurse today this shift.
--- NOTE | 2019-02-21 18:43 | NUR ---
I have reviewed this patient and I concur with the Shift Assessment completed by the Licensed Practical Nurse today this shift.
--- NOTE | 2019-02-21 20:10 | NUR ---
resting quielty.no distress noted. iv infusing to rfa without redness or edema noted. no complaitns voiced. no distress noted.
[2019-02-21 21:47] VITALS: BP 120/72
--- NOTE | 2019-02-22 02:58 | NUR ---
I have reviewed this patient and I concur with the Shift Assessment completed by the Licensed Practical Nurse today this shift.
[2019-02-22 05:03] VITALS: BP 124/70
[2019-02-22 06:09] LABS: ANION GAP 14.6 mmol/L (8-16); CALCIUM 8.4 mg/dL (8.5-10.1); CARBON DIOXIDE 24.3 mmol/L (21.0-32.0); MAGNESIUM - SERUM 2.2 mg/dL (1.8-2.4)
[2019-02-22 06:21] LABS: POTASSIUM - SERUM 3.9 mmol/L (3.5-5.1)
[2019-02-22 06:22] LABS: BASOPHILS 0.4 % (0-2); EOSINOPHILS 1.5 % (0-7); IMMATURE GRANULOCYTES 3.6 % (0-5); LYMPHOCYTES 20.9 % (15-50); MCH 30.3 pg (26.0-34.0); MCHC 33.8 g/dL (31.0-37.0); MCV 89.7 fL (80.0-100.0); MEAN PLATELET VOLUME 11.4 fL (7.4-10.4); MONOCYTES 13.4 % (2-11); NEUTROPHILS 60.2 % (40-80); RDW 18.1 % (11.5-14.5)
[2019-02-22 06:25] LABS: HEMOGLOBIN 11.5 g/dL (12-16); PLATELET COUNT 261 10x3/uL (130-400); RBC 3.79 10x6/uL (4.00-5.40); WBC 17.4 10x3/uL (4.8-10.8)
--- NOTE | 2019-02-22 07:45 | NUR ---
ASSESSMENT PER FLOW SHEET. PT IS WITHOUT DISTRESS.NPO ORDERED. FAMILY AT BEDSIDE
[2019-02-22 09:16] VITALS: BP 87/40
--- NOTE | 2019-02-22 13:27 | NUR ---
TO GI LAB VIA BED.
[2019-02-22 13:37] VITALS: BP 114/44
[2019-02-22 16:09] LABS: SPE - ALBUMIN 2.7 g/dL (2.9-4.4); SPE - ALPHA-1 GLOBULIN 0.4 g/dL (0.0-0.4); SPE - ALPHA-2 GLOBULIN 0.8 g/dL (0.4-1.0); SPE - BETA GLOBULIN 0.9 g/dL (0.7-1.3); SPE - GAMMA GLOBULIN 0.7 g/dL (0.4-1.8); SPE - M-SPIKE Not Observed g/dL (Not Observed); SPE - TOTAL PROTEIN 5.5 g/dL (6.0-8.5)
[2019-02-22 16:48] VITALS: BP 124/55
--- NOTE | 2019-02-22 17:25 | NUR ---
CALL FROM CT. CT WILL NOT BE DONE TODAY. MAYBE TOMORROW IF KIDNEY FUNCTION IS BETTER AND OK BY RENAL.
--- NOTE | 2019-02-22 18:12 | NUR ---
TOLERATING CLD. PT IS WITHOUT SIGNS OF BLEEDING.CONT PLAN OF CARE
--- NOTE | 2019-02-22 20:20 | NUR ---
WATCHING TV QUEILTY.NO DISTRESS NOTED. NO COMPLAITNS VOICED. CL IN REACH
[2019-02-22 22:12] VITALS: BP 122/46
[2019-02-23 00:45] VITALS: BP 118/54
--- NOTE | 2019-02-23 03:37 | NUR ---
I have reviewed this patient and I concur with the Shift Assessment completed by the Licensed Practical Nurse today this shift.
[2019-02-23 03:56] LABS: BASOPHILS 0.5 % (0-2); EOSINOPHILS 2.6 % (0-7); HEMATOCRIT 34.7 % (36.0-48.0); HEMOGLOBIN 11.6 g/dL (12-16); IMMATURE GRANULOCYTES 2.3 % (0-5); LYMPHOCYTES 25.9 % (15-50); MCH 30.4 pg (26.0-34.0); MCHC 33.4 g/dL (31.0-37.0); MCV 91.1 fL (80.0-100.0); MEAN PLATELET VOLUME 10.5 fL (7.4-10.4); MONOCYTES 12.8 % (2-11); NEUTROPHILS 55.9 % (40-80); PLATELET COUNT 272 10x3/uL (130-400); RBC 3.81 10x6/uL (4.00-5.40); RDW 18.6 % (11.5-14.5)
[2019-02-23 04:07] LABS: WBC 12.9 10x3/uL (4.8-10.8)
[2019-02-23 04:08] LABS: ANION GAP 16.1 mmol/L (8-16); CALCIUM 8.5 mg/dL (8.5-10.1); CARBON DIOXIDE 23.4 mmol/L (21.0-32.0); CREATININE - SERUM 1.6 mg/dL (0.6-1.3); POTASSIUM - SERUM 3.5 mmol/L (3.5-5.1)
[2019-02-23 05:12] VITALS: BP 128/50
--- NOTE | 2019-02-23 07:45 | NUR ---
ASSESSMENT PER FLOW SHEET. PT IS WITHOUT DISTRESS.NPO FOR POSSIBLE CTA THIS AM.MONITOR FOR NEEDS.CALL LIGHT IN REACH
[2019-02-23 08:45] VITALS: BP 162/60
--- NOTE | 2019-02-23 09:18 | NUR ---
CALL TO DR. ABRAMS'S OFFICE. RE.. APPROVAL OF CTA
--- NOTE | 2019-02-23 09:22 | NUR ---
Wound care consult for decreased mobility. Recommendations: Document the following: -Turn/reposition pt every 2 hours while in bed (hourly if up in chair) -Bridge heels (floating off of the mattress and pillow) to decrease risk of breakdown -Protect bony prominences -Assess skin q shift and with personal care -Use zinc oxide paste if pt is incontinent
--- NOTE | 2019-02-23 09:23 | NUR ---
SPOKE WITH DR. ABRAMS HE RECOMMENDS WAITING UNTIL KIDNEY FUNCTION RETURNS TO NORMAL RANGE BEFORE CTA.
--- NOTE | 2019-02-23 10:41 | NUR ---
SPOKE WITH MEHRAN YIP. CTA. EXPLAINED TO HER I SPOKE WITH DR. ABRAMS AND HIS RECOMMENDATIONS IF CTA WAS NEEDED AT THIS TIME.I AM TO [facility] WITH IVF ORDERED PER DR. ABRAMS THEN CTA WILL BE DECIDED ON.
[2019-02-23 12:48] VITALS: BP 158/62
--- NOTE | 2019-02-23 16:05 | NUR ---
OT NOTE: PT COMPLETED BED MOB TASKS WITH MIN A. 830/846 THANK YOU, FAITH MICHAEL
[2019-02-23 16:35] VITALS: BP 158/62
--- NOTE | 2019-02-23 17:42 | NUR ---
TOLERATING CLD THIS AFTERNOON. SHE IS WITHOUT CHNAGE.CONT PLAN OF CARE
[2019-02-23 21:34] VITALS: BP 126/51
[2019-02-24 01:25] VITALS: BP 115/44
[2019-02-24 05:21] LABS: BASOPHILS 0.6 % (0-2); EOSINOPHILS 2.7 % (0-7); HEMOGLOBIN 11.5 g/dL (12-16); IMMATURE GRANULOCYTES 2.2 % (0-5); MCH 31.2 pg (26.0-34.0); MCHC 33.8 g/dL (31.0-37.0); MCV 92.1 fL (80.0-100.0); MEAN PLATELET VOLUME 10.5 fL (7.4-10.4); MONOCYTES 11.9 % (2-11); NEUTROPHILS 55.6 % (40-80); PLATELET COUNT 301 10x3/uL (130-400); RBC 3.69 10x6/uL (4.00-5.40); RDW 19.2 % (11.5-14.5); WBC 10.5 10x3/uL (4.8-10.8)
[2019-02-24 05:23] LABS: ANION GAP 11.6 mmol/L (8-16); CALCIUM 8.4 mg/dL (8.5-10.1); CARBON DIOXIDE 25.7 mmol/L (21.0-32.0); CREATININE - SERUM 1.4 mg/dL (0.6-1.3); MAGNESIUM - SERUM 1.8 mg/dL (1.8-2.4); POTASSIUM - SERUM 4.3 mmol/L (3.5-5.1)
[2019-02-24 05:27] VITALS: BP 142/52
--- NOTE | 2019-02-24 07:45 | NUR ---
ASSESSMENT PER FLOW SHEET. PT IS WITHOUT DISTRESS.NPO FOR TESTING
[2019-02-24 08:46] VITALS: BP 149/59
--- NOTE | 2019-02-24 12:11 | NUR ---
CALL TO DR. ABRAMS TO GET PT CLEARED FOR CTA
--- NOTE | 2019-02-24 12:37 | NUR ---
SPOKE WITH DR. ABRAMS RE.. CLEARANCE FOR CTA. HE WILL PUT NOTE REGUARDING TESTING
[2019-02-24 12:48] VITALS: BP 113/71
--- NOTE | 2019-02-24 12:51 | NUR ---
Nutrition Follow Up: Chart reviewed. Diet order has been changed to clear liquid. PO Intake: 47% meal avg - po intake is improving BM: 02/21/19 Labs reviewed Meds noted including Reglan Rec advancing YENIFER as soon as medically feasible. Pt continues not meeting est nutritional needs. Rec consider nutrition support. RD following.
--- NOTE | 2019-02-24 14:35 | MORECARE ---
CASE MANAGEMENT DISCHARGE SUMMARY PATIENT: VINI CHACON UNIT: [id number] ADM DATE: 02/01/19 AGE: 68 : 50 SEX: F ROOM/BED: D.2222 AUTHOR: JACQUELIN,DOC PHYSICIAN: REFERRING PHYSICIAN: SHINE FLORES MD DATE OF SERVICE: 02/24/19 Discharge Plan Patient Name: VINI CHACON Facility: [facility]:[place] : 1950 Planned Disposition: Home Anticipated Discharge Date: Discharge Date: Expected LOS: Initial Reviewer: [email or web address] Initial Review Date: 02/01/2019 Generated: 02/24/19 3:35 pm DCP- Discharge Planning Updated by [id number]: Pamela Edwards on 02/15/19 1:[address] Spoke with patient and mother and she stated that she wanted to go home with home health and did not want to go to rehab. OMAR with [facility], she also inquired about help at home. Information given and OMAR with [facility]. I will fax clinical information to both places. IMM served and explained. CM will continue to follow and assist with dc planning DCP- Discharge Planning Updated by [id number]: Marla Padilla on 02/07/19 11:[address] Patient Name: VINI CHACON Admission Status: ER Accout number: [id number] Admission Date: 02-01-2019 : 1950 Admission Diagnosis:SEPSIS, UNSPECIFIED ORGANISM Attending: SHINE FLORES Current LOS: 7 Anticipated DC Date: Planned Disposition: Home Primary Insurance: [facility] MEDICARE SOLUTIONS Discharge Planning Comments: CM met with patient at bedside after explaining CM role and obtaining verbal consent. Patient lives at home with her Mother and plans to return there upon discharge. Patient feels this would be a safe discharge. CM discussed availability / needs of home health and medical equipment. Patient did state she had home health services in the past, but can't recall the name. Patient states her Mother will know but she doesn't want to use that company again. OMAR form not signed at this time. CM will continue to follow and assist as needed with discharge planning / needs. Latrine Cleaner: Marla Padilla DCPIA - Discharge Planning Initial Assessment Updated by [id number]: Marla Valerie on 02/08/19 12:17 am * Is the patient Alert and Oriented? Yes * How many steps to enter\exit or inside your home? RAMP * PCP GRACIELA * Pharmacy CAN'T REMEMBER NAME * Preadmission Environment Home with Family * ADLs Independent * Other Equipment SHOWER CHAIR, BSC, WHEELCHAIR, WALKER * List name and contact numbers for known caregivers / representatives who currently or will assist patient after discharge: TULIO CAMPOS - [facility]- [phone] * Verbal permission to speak to the caregivers and representatives has been obtained from the patient. Yes * Community resources currently utilized None * Additional services required to return to the preadmission environment? No * Can the patient safely return to the preadmission environment? Yes * Has this patient been hospitalized within the prior 30 days at any hospital? No External Providers [facility] Next Contact Date: Service Request Date: Service Type: Resolution: Reviewer: Comments: Coverage Notice Reviewer: [email or web address] Arron Edwards Notice Issued Date-Time: 02/15/2019 14:00 Notice Type: IM Discharge Notice Notice Delivered To: Patient Relationship to Patient: Patron Attendant Name: Delivery Method: HAND - Hand Delivered Gail Days: Prior Verbal Notification: Recipient Understood Notice: Yes Recipient Signature: Yes Med Rec Note Co-signed by Attending: Coverage Notice Comment: Reviewer: [id number] Edwards Notice Issued Date-Time: 02/15/2019 14:00 Notice Type: Patient Choice Letter Notice Delivered To: Patient Relationship to Patient: Patron Attendant Name: Delivery Method: - Gail Days: Prior Verbal Notification: Recipient Understood Notice: Recipient Signature: Med Rec Note Co-signed by Attending: Coverage Notice Comment: Last DP export: 02/15/19 1:15 p Patient Name: VINI CHACON Page [id number] at 1435 All edits/amendments must be made on the electronic document DICTATION DATE: 02/24/191433 JOURNAL ENTRY AUDIT CLERK: KIM 02/24/191433 RPT#: [id number] DC DATE: STATUS: ADM IN [facility] [address] [place] [address] END OF REPORT
--- NOTE | 2019-02-24 14:45 | MORECARE ---
CASE MANAGEMENT DISCHARGE SUMMARY PATIENT: VINI CHACON UNIT: [id number] ADM DATE: 02/01/19 AGE: 68 : 50 SEX: F ROOM/BED: D.2222 AUTHOR: QIAN ROPER PHYSICIAN: REFERRING PHYSICIAN: SHINE FLORES MD DATE OF SERVICE: 02/24/19 Discharge Plan Patient Name: VINI CHACON Facility: [facility]:[place] : 1950 Planned Disposition: Home Anticipated Discharge Date: Discharge Date: Expected LOS: Initial Reviewer: [email or web address] Initial Review Date: 02/01/2019 Generated: 02/24/19 3:45 pm Comments DCP- Discharge Planning Updated by [id number]: Sylvia Greenberg on 02/24/19 1:[address] Spoke with patient today, she still states she would like to go home with home health when the physician states she can go home. She does not want rehab. I called [facility] and spoke with Beronica and clinical faxed. I told Beronica that she is nearing discharge. CM will continue to follow and assist with discharge planning/needs. DCP- Discharge Planning Updated by [id number]: Pamela Edwards on 02/15/19 1:[address] Spoke with patient and mother and she stated that she wanted to go home with home health and did not want to go to rehab. OMAR with [facility], she also inquired about help at home. Information given and OMAR with [facility]. I will fax clinical information to both places. IMM served and explained. CM will continue to follow and assist with dc planning DCP- Discharge Planning Updated by [id number]: Marla Padilla on 02/07/19 11:[address] Patient Name: VINI CHACON Admission Status: ER Accout number: [id number] Admission Date: 02-01-2019 : 1950 Admission Diagnosis:SEPSIS, UNSPECIFIED ORGANISM Attending: SHINE FLORES Current LOS: 7 Anticipated DC Date: Planned Disposition: Home Primary Insurance: [facility] MEDICARE SOLUTIONS Discharge Planning Comments: CM met with patient at bedside after explaining CM role and obtaining verbal consent. Patient lives at home with her Mother and plans to return there upon discharge. Patient feels this would be a safe discharge. CM discussed availability / needs of home health and medical equipment. Patient did state she had home health services in the past, but can't recall the name. Patient states her Mother will know but she doesn't want to use that company again. OMAR form not signed at this time. CM will continue to follow and assist as needed with discharge planning / needs. Shop Superintendent: Marla Padilla DCPIA - Discharge Planning Initial Assessment Updated by [email or web address]: Marla Padilla on 02/08/19 12:17 am * Is the patient Alert and Oriented? Yes * How many steps to enter\exit or inside your home? RAMP * PCP GRACIELA * Pharmacy CAN'T REMEMBER NAME * Preadmission Environment Home with Family * ADLs Independent * Other Equipment SHOWER CHAIR, BSC, WHEELCHAIR, WALKER * List name and contact numbers for known caregivers / representatives who currently or will assist patient after discharge: TULIO CAMPOS - MOTHER- [phone] * Verbal permission to speak to the caregivers and representatives has been obtained from the patient. Yes * Community resources currently utilized None * Additional services required to return to the preadmission environment? No * Can the patient safely return to the preadmission environment? Yes * Has this patient been hospitalized within the prior 30 days at any hospital? No Coverage Notice Reviewer: [email or web address] Arron Edwards Notice Issued Date-Time: 02/15/2019 14:00 Notice Type: IM Discharge Notice Notice Delivered To: Patient Relationship to Patient: Bookmobile Clerk Name: Delivery Method: HAND - Hand Delivered Gail Days: Prior Verbal Notification: Recipient Understood Notice: Yes Recipient Signature: Yes Med Rec Note Co-signed by Attending: Coverage Notice Comment: Reviewer: [id number] Edwards Notice Issued Date-Time: 02/15/2019 14:00 Notice Type: Patient Choice Letter Notice Delivered To: Patient Relationship to Patient: Bookmobile Clerk Name: Delivery Method: - Gail Days: Prior Verbal Notification: Recipient Understood Notice: Recipient Signature: Med Rec Note Co-signed by Attending: Coverage Notice Comment: Last DP export: 02/24/19 1:35 pm Patient Name: VINI CHACON Page [id number] at 1445 All edits/amendments must be made on the electronic document DICTATION DATE: 02/24/191443 GREASE AND TALLOW PUMPER: KIM 02/24/191443 RPT#: [id number] DC DATE: STATUS: ADM IN [facility] [address] [place] [address] END OF REPORT
--- NOTE | 2019-02-24 16:10 | NUR ---
OT NOTE: PT REPORTED FEELING MUCH BETTER. STATES THAT THIS IS THE FIRST TIME SHES FELT LIKE GETTING UP AND DOING SOMETHING. MARKETING PROPOSAL COORDINATOR REQUESTED TO ASSIST PT WITH MOBILITY TO SHOWER. BED MOB WITH SPV; SIT TO STAND WITH MIN ASSIST. EDUCATION ON PROCESS OF WALKER MGMT, WT BEARING THROUGH UES AND MANIPULATING WALKER INTO SHOWER. PT ABLE TO PERFORM WITH MIN ASSIST UNTIL GETTING OVER THE SMALL STEP OF SHOWER. PT VERY FEARFUL AND REQUIRED MOD ASSIST WITH THIS, AND MOD ASSIST WITH DECENT TO CHAIR. ABLE TO PERFORM BATHING WITH MIN/SET UP AFTER SHOWER WAS ON AND ALL ITEMS PLACED IN REACH. PT DOING MUCH BETTER TODAY. TJ LOVE, OTR/L
[2019-02-24 16:45] VITALS: BP 113/59
--- NOTE | 2019-02-24 19:15 | NUR ---
RECEIVED CARE FROM DAY NURSE. LYING IN BED WATCHING TV. REPORTS NO NEEDS AT THIS TIME. CALL LIGHT AT SIDE. IV INFUSING PER ORDER TO PATENT RIGHT FA.
[2019-02-24 19:35] VITALS: BP 146/49
--- NOTE | 2019-02-25 00:59 | NUR ---
I have reviewed this patient and I concur with the Shift Assessment completed by the Licensed Practical Nurse today this shift.
[2019-02-25 01:36] VITALS: BP 153/47
[2019-02-25 04:59] LABS: BASOPHILS 0.6 % (0-2); EOSINOPHILS 4.5 % (0-7); HEMATOCRIT 36.7 % (36.0-48.0); HEMOGLOBIN 12.5 g/dL (12-16); IMMATURE GRANULOCYTES 1.6 % (0-5); LYMPHOCYTES 26.6 % (15-50); MCHC 34.1 g/dL (31.0-37.0); MCV 91.1 fL (80.0-100.0); MEAN PLATELET VOLUME 10.4 fL (7.4-10.4); MONOCYTES 12.4 % (2-11); NEUTROPHILS 54.3 % (40-80); PLATELET COUNT 348 10x3/uL (130-400); RBC 4.03 10x6/uL (4.00-5.40); RDW 18.7 % (11.5-14.5)
[2019-02-25 05:20] LABS: ALBUMIN 2.7 g/dL (3.4-5.0); ANION GAP 12.6 mmol/L (8-16); BILIRUBIN - TOTAL 0.37 mg/dL (0.2-1.3); CALCIUM 8.9 mg/dL (8.5-10.1); CARBON DIOXIDE 26.5 mmol/L (21.0-32.0); CREATININE - SERUM 1.3 mg/dL (0.6-1.3); POTASSIUM - SERUM 4.1 mmol/L (3.5-5.1); PROTEIN - SERUM 6.3 g/dL (6.4-8.2)
[2019-02-25 05:39] VITALS: BP 152/60
[2019-02-25 09:10] VITALS: BP 164/60
--- NOTE | 2019-02-25 13:28 | NUR ---
PT BP IS 198/72 PT HAD CATAPRES EARLIER THIS WEEK FOR HTN, SPOKE TO DR FERNANDES, WILL ADRESS WHEN HE SEES PT
[2019-02-25 13:35] VITALS: BP 198/92
[2019-02-25 16:48] VITALS: BP 135/62
--- NOTE | 2019-02-25 17:16 | NUR ---
I have reviewed this patient and I concur with the Shift Assessment completed by the Licensed Practical Nurse today this shift.
--- NOTE | 2019-02-25 18:15 | NUR ---
I have reviewed this patient and I concur with the Shift Assessment completed by the Licensed Practical Nurse today this shift.
--- NOTE | 2019-02-25 19:15 | NUR ---
RECEIVED CARE FROM DAY NURSE. LYING IN BED WATCHING TV. CALL LIGHT AT SIDE. IV INFUSING PER ORDER TO RIGHT FA. REPORTS NO NEEDS AT THIS TIME. CALL LIGHT AT SIDE.
[2019-02-25 21:01] VITALS: BP 155/59
[2019-02-26 05:21] VITALS: BP 147/79
[2019-02-26 05:47] LABS: BASOPHILS 0.5 % (0-2); HEMOGLOBIN 12.3 g/dL (12-16); IMMATURE GRANULOCYTES 0.9 % (0-5); LYMPHOCYTES 21.2 % (15-50); MCH 30.5 pg (26.0-34.0); MCHC 33.2 g/dL (31.0-37.0); MCV 91.8 fL (80.0-100.0); MEAN PLATELET VOLUME 10.5 fL (7.4-10.4); MONOCYTES 13.7 % (2-11); NEUTROPHILS 58.7 % (40-80); PLATELET COUNT 352 10x3/uL (130-400); RBC 4.03 10x6/uL (4.00-5.40); RDW 18.7 % (11.5-14.5); WBC 9.4 10x3/uL (4.8-10.8)
[2019-02-26 06:06] LABS: ALBUMIN 2.5 g/dL (3.4-5.0); ANION GAP 12.3 mmol/L (8-16); BILIRUBIN - TOTAL 0.31 mg/dL (0.2-1.3); CALCIUM 8.8 mg/dL (8.5-10.1); CARBON DIOXIDE 24.4 mmol/L (21.0-32.0); CREATININE - SERUM 1.2 mg/dL (0.6-1.3); POTASSIUM - SERUM 3.7 mmol/L (3.5-5.1); PROTEIN - SERUM 5.8 g/dL (6.4-8.2)
[2019-02-26 09:25] VITALS: BP 161/64
[2019-02-26 12:20] VITALS: BP 179/73
--- NOTE | 2019-02-26 15:11 | NUR ---
I have reviewed this patient and I concur with the Shift Assessment completed by the Licensed Practical Nurse today this shift.
--- NOTE | 2019-02-26 16:03 | NUR ---
PT LYING IN BED, NO S/S OF DISTRESS, PT GOT PT UP TO WC TODAY. MOTHER ASSISTED PT BACK TO BED. NO NEEDS VOICED, CONTINUE WITH PLAN OF CARE
[2019-02-26 16:36] VITALS: BP 155/63
[2019-02-26 19:45] VITALS: BP 155/80
[2019-02-27 00:24] VITALS: BP 162/63
[2019-02-27 04:48] VITALS: BP 169/67
[2019-02-27 05:17] LABS: BASOPHILS 0.4 % (0-2); EOSINOPHILS 4.6 % (0-7); HEMATOCRIT 35.2 % (36.0-48.0); HEMOGLOBIN 11.9 g/dL (12-16); IMMATURE GRANULOCYTES 0.7 % (0-5); LYMPHOCYTES 25.1 % (15-50); MCH 31.2 pg (26.0-34.0); MCHC 33.8 g/dL (31.0-37.0); MCV 92.4 fL (80.0-100.0); MEAN PLATELET VOLUME 10.1 fL (7.4-10.4); MONOCYTES 8.5 % (2-11); NEUTROPHILS 60.7 % (40-80); PLATELET COUNT 342 10x3/uL (130-400); RBC 3.81 10x6/uL (4.00-5.40); RDW 18.5 % (11.5-14.5); WBC 11.1 10x3/uL (4.8-10.8)
[2019-02-27 05:31] LABS: APTT 31.4 SECONDS (22.8-39.4); INR 1.02 (0.85-1.17); PROTIME 12.9 SECONDS (11.6-15.0)
[2019-02-27 05:49] LABS: ALBUMIN 2.4 g/dL (3.4-5.0); ANION GAP 12.7 mmol/L (8-16); BILIRUBIN - TOTAL 0.23 mg/dL (0.2-1.3); CALCIUM 8.6 mg/dL (8.5-10.1); CARBON DIOXIDE 25.1 mmol/L (21.0-32.0); CREATININE - SERUM 1.2 mg/dL (0.6-1.3); POTASSIUM - SERUM 3.8 mmol/L (3.5-5.1); PROTEIN - SERUM 5.7 g/dL (6.4-8.2)
--- NOTE | 2019-02-27 08:00 | NUR ---
ASSESSMENT PER FLOW SHEET. PT IS WITHOUT DISTRESS. NPO FOR PROCEDURE TODAY. MONITOR FOR NEEDS.
[2019-02-27 08:46] VITALS: BP 147/55
[2019-02-27 13:46] VITALS: BP 156/54
--- NOTE | 2019-02-27 13:50 | NUR ---
NUTRITION F/U CHART REVIEWED. PT CURRENTLY NPO FOR PROCEDURE. WILL PROVIDE DIET WHEN RESUMED, MONITOR PO INTAKE. RD FOLLOWING
--- NOTE | 2019-02-27 17:52 | NUR ---
REMAINS WITHOUT CHAGE FROM INITIAL SHIFT ASSESSMENT. TOLERATING DIET.CONT PLAN OF CARE
[2019-02-27 18:12] VITALS: BP 156/50
--- NOTE | 2019-02-27 19:35 | NUR ---
PT SITTING UP IN BED, NO SIGNS OF DISTRESS. ALERT AND ORIENTED. DENIES PAIN. PLACED ON AND OFF BEDPAN TO VOID. IV RIGHT FA INFUSING NS @ 50. DENIES NEEDS AT THIS TIME. CL IN REACH, WILL CONT TO MONITOR
[2019-02-27 21:12] VITALS: BP 166/72
[2019-02-28 01:43] VITALS: BP 147/66
--- NOTE | 2019-02-28 05:15 | NUR ---
PT REFUSED LAB DRAW THIS AM STATING TO FLAT SURFACER JEWEL "IM GOING HOME TODAY"
[2019-02-28 05:38] VITALS: BP 175/68
[2019-02-28 08:30] VITALS: BP 165/61
[2019-02-28 11:08] LABS: BASOPHILS 0.4 % (0-2); EOSINOPHILS 4.6 % (0-7); HEMATOCRIT 36.6 % (36.0-48.0); HEMOGLOBIN 12.2 g/dL (12-16); IMMATURE GRANULOCYTES 0.9 % (0-5); MCH 30.6 pg (26.0-34.0); MCHC 33.3 g/dL (31.0-37.0); MCV 91.7 fL (80.0-100.0); MEAN PLATELET VOLUME 10.6 fL (7.4-10.4); MONOCYTES 10.7 % (2-11); NEUTROPHILS 56.4 % (40-80); PLATELET COUNT 353 10x3/uL (130-400); RBC 3.99 10x6/uL (4.00-5.40); RDW 18.4 % (11.5-14.5); WBC 9.3 10x3/uL (4.8-10.8)
[2019-02-28 11:25] LABS: ALBUMIN 2.6 g/dL (3.4-5.0); ANION GAP 13.2 mmol/L (8-16); BILIRUBIN - TOTAL 0.29 mg/dL (0.2-1.3); CALCIUM 8.7 mg/dL (8.5-10.1); CARBON DIOXIDE 22.6 mmol/L (21.0-32.0); CREATININE - SERUM 1.1 mg/dL (0.6-1.3); POTASSIUM - SERUM 3.8 mmol/L (3.5-5.1); PROTEIN - SERUM 6.1 g/dL (6.4-8.2)
[2019-02-28 14:00] VITALS: BP 179/59
[2019-02-28] MEDS ORDERED: PEPCID40 MG PO (14:59)
[2019-02-28] MEDS ORDERED: CARAFATE1 G PO (15:00)
[2019-02-28] MEDS ORDERED: PROTONIX40 MG PO (15:00)
[2019-02-28] MEDS ORDERED: MIRALAX17 GM PO (15:03)
[2019-02-28] MEDS ORDERED: FOLIC ACID1 MG PO (15:03)
--- NOTE | 2019-02-28 15:47 | MORECARE ---
CASE MANAGEMENT DISCHARGE SUMMARY PATIENT: VINI CHACON UNIT: [id number] ADM DATE: 02/01/19 AGE: 68 : 50 SEX: F ROOM/BED: D.2222 AUTHOR: JACQUELIN,DOC PHYSICIAN: REFERRING PHYSICIAN: SHINE FLORES MD DATE OF SERVICE: 02/28/19 Discharge Plan Patient Name: VINI CHACON Facility: [facility]:[place] : 1950 Planned Disposition: Home Anticipated Discharge Date: Discharge Date: Expected LOS: Initial Reviewer: [email or web address] Initial Review Date: 02/01/2019 Generated: 02/28/19 4:46 pm Comments DCP- Discharge Planning Updated by [email or web address]: Sylvia Greenberg on 02/28/19 2:[address] Orders received for discharge. I spoke with Beronica at [facility] and they will see her tomorrow. Her mother is at bedside. CM will continue to follow and assist with discharge planning/needs. DCP- Discharge Planning Updated by [id number]: Sylvia Greenberg on 02/24/19 1:[address] Spoke with patient today, she still states she would like to go home with home health when the physician states she can go home. She does not want rehab. I called [facility] and spoke with Beronica and clinical faxed. I told Beronica that she is nearing discharge. CM will continue to follow and assist with discharge planning/needs. DCP- Discharge Planning Updated by [id number]: Pamela Edwards on 02/15/19 1:[address] Spoke with patient and mother and she stated that she wanted to go home with home health and did not want to go to rehab. OMAR with Care [facility], she also inquired about help at home. Information given and OMAR with [facility]. I will fax clinical information to both places. IMM served and explained. CM will continue to follow and assist with dc planning DCP- Discharge Planning Updated by [id number]: Marla Padilla on 02/07/19 11:[address] Patient Name: VINI CHACON Admission Status: ER Accout number: [id number] Admission Date: 02-01-2019 : 1950 Admission Diagnosis:SEPSIS, UNSPECIFIED ORGANISM Attending: SHINE FLORES Current LOS: 7 Anticipated DC Date: Planned Disposition: Home Primary Insurance: [facility] MEDICARE SOLUTIONS Discharge Planning Comments: CM met with patient at bedside after explaining CM role and obtaining verbal consent. Patient lives at home with her Mother and plans to return there upon discharge. Patient feels this would be a safe discharge. CM discussed availability / needs of home health and medical equipment. Patient did state she had home health services in the past, but can't recall the name. Patient states her Mother will know but she doesn't want to use that company again. OMAR form not signed at this time. CM will continue to follow and assist as needed with discharge planning / needs. Corrections Identification Technician: Marla HAJI - Discharge Planning Initial Assessment Updated by [email or web address]: Marla Padilla on 02/08/19 12:17 am * Is the patient Alert and Oriented? Yes * How many steps to enter\exit or inside your home? RAMP * PCP GRACIELA * Pharmacy CAN'T REMEMBER NAME * Preadmission Environment Home with Family * ADLs Independent * Other Equipment SHOWER CHAIR, BSC, WHEELCHAIR, WALKER * List name and contact numbers for known caregivers / representatives who currently or will assist patient after discharge: TULIO CAMPOS - MOTHER- [phone] * Verbal permission to speak to the caregivers and representatives has been obtained from the patient. Yes * Community resources currently utilized None * Additional services required to return to the preadmission environment? No * Can the patient safely return to the preadmission environment? Yes * Has this patient been hospitalized within the prior 30 days at any hospital? No Coverage Notice Reviewer: [email or web address] Arron Edwards Notice Issued Date-Time: 02/15/2019 14:00 Notice Type: IM Discharge Notice Notice Delivered To: Patient Relationship to Patient: Spot Machine Operator Name: Delivery Method: HAND - Hand Delivered Gail Days: Prior Verbal Notification: Recipient Understood Notice: Yes Recipient Signature: Yes Med Rec Note Co-signed by Attending: Coverage Notice Comment: Reviewer: [email or web address] Arron Edwards Notice Issued Date-Time: 02/15/2019 14:00 Notice Type: Patient Choice Letter Notice Delivered To: Patient Relationship to Patient: Spot Machine Operator Name: Delivery Method: - Gail Days: Prior Verbal Notification: Recipient Understood Notice: Recipient Signature: Med Rec Note Co-signed by Attending: Coverage Notice Comment: Reviewer: [email or web address] - Sylvia Greenberg Notice Issued Date-Time: 02/28/2019 15:37 Notice Type: IM Discharge Notice Notice Delivered To: Patient Relationship to Patient: Self Spot Machine Operator Name: Delivery Method: HAND - Hand Delivered Gail Days: Prior Verbal Notification: Recipient Understood Notice: Yes Recipient Signature: Yes Med Rec Note Co-signed by Attending: Coverage Notice Comment: IMM explained, signed, given, copy placed in MR Last DP export: 02/24/19 1:45 pm Patient Name: VINI CHACON Page 92417 at 1547 All edits/amendments must be made on the electronic document DICTATION DATE: 02/28/191545 ROAD BOSS: KIM 02/28/191545 RPT#: [id number] DC DATE: STATUS: ADM IN [facility] [address] [place] [address] END OF REPORT
--- NOTE | 2019-02-28 15:56 | MORECARE ---
CASE MANAGEMENT DISCHARGE SUMMARY PATIENT: VINI CHACON UNIT: [id number] ADM DATE: 02/01/19 AGE: 68 : 50 SEX: F ROOM/BED: D.2222 AUTHOR: JACQUELIN,DOC PHYSICIAN: REFERRING PHYSICIAN: SHINE FLORES MD DATE OF SERVICE: 02/28/19 Discharge Plan Patient Name: VINI CHACON Facility: [facility]:[place] : 1950 Planned Disposition: Home Anticipated Discharge Date: Discharge Date: Expected LOS: Initial Reviewer: [id number] Initial Review Date: 02/01/2019 Generated: 02/28/19 4:56 pm Comments DCP- Discharge Planning Updated by [email or web address]: Sylvia Greenberg on 02/28/19 2:[address] Spoke with James with [facility] and informed him the patient is going home today. James states he has not ran her benefits yet, but he will follow up with her. CM will continue to follow up and assist with discharge planning/needs. DCP- Discharge Planning Updated by [id number]: Sylvia Greenberg on 02/28/19 2:[address] Orders received for discharge. I spoke with Beronica at [facility] and they will see her tomorrow. Her mother is at bedside. CM will continue to follow and assist with discharge planning/needs. DCP- Discharge Planning Updated by [email or web address]: Sylvia Greenberg on 02/24/19 1:[address] Spoke with patient today, she still states she would like to go home with home health when the physician states she can go home. She does not want rehab. I called [facility] and spoke with Beronica and clinical faxed. I told Beronica that she is nearing discharge. CM will continue to follow and assist with discharge planning/needs. DCP- Discharge Planning Updated by [id number]: Pamela Edwards on 02/15/19 1:[address] Spoke with patient and mother and she stated that she wanted to go home with home health and did not want to go to rehab. OMAR with [facility], she also inquired about help at home. Information given and OMAR with [facility]. I will fax clinical information to both places. IMM served and explained. CM will continue to follow and assist with dc planning DCP- Discharge Planning Updated by [id number]: Marla Padilla on 02/07/19 11:[address] Patient Name: VINI CHACON Admission Status: ER Accout number: [id number] Admission Date: 02-01-2019 : 1950 Admission Diagnosis:SEPSIS, UNSPECIFIED ORGANISM Attending: SHINE FLORES Current LOS: 7 Anticipated DC Date: Planned Disposition: Home Primary Insurance: [facility] MEDICARE SOLUTIONS Discharge Planning Comments: CM met with patient at bedside after explaining CM role and obtaining verbal consent. Patient lives at home with her Mother and plans to return there upon discharge. Patient feels this would be a safe discharge. CM discussed availability / needs of home health and medical equipment. Patient did state she had home health services in the past, but can't recall the name. Patient states her Mother will know but she doesn't want to use that company again. OMAR form not signed at this time. CM will continue to follow and assist as needed with discharge planning / needs. Audio Visual Equipment Rental Clerk: Marla Padilla DCPIA - Discharge Planning Initial Assessment Updated by [email or web address]: Marla Padilla on 02/08/19 12:17 am * Is the patient Alert and Oriented? Yes * How many steps to enter\exit or inside your home? RAMP * PCP GRACIELA * Pharmacy CAN'T REMEMBER NAME * Preadmission Environment Home with Family * ADLs Independent * Other Equipment SHOWER CHAIR, BSC, WHEELCHAIR, WALKER * List name and contact numbers for known caregivers / representatives who currently or will assist patient after discharge: TULIO CAMPOS - MOTHER- [phone] * Verbal permission to speak to the caregivers and representatives has been obtained from the patient. Yes * Community resources currently utilized None * Additional services required to return to the preadmission environment? No * Can the patient safely return to the preadmission environment? Yes * Has this patient been hospitalized within the prior 30 days at any hospital? No Coverage Notice Reviewer: [id number] Arron Greenberg Notice Issued Date-Time: 02/28/2019 15:37 Notice Type: IM Discharge Notice Notice Delivered To: Patient Relationship to Patient: Self Cloth Classer Name: Delivery Method: HAND - Hand Delivered Gail Days: Prior Verbal Notification: Recipient Understood Notice: Yes Recipient Signature: Yes Med Rec Note Co-signed by Attending: Coverage Notice Comment: IMM explained, signed, given, copy placed in MR Reviewer: [id number] Arron Edwards Notice Issued Date-Time: 02/15/2019 14:00 Notice Type: Patient Choice Letter Notice Delivered To: Patient Relationship to Patient: Cloth Classer Name: Delivery Method: - Gail Days: Prior Verbal Notification: Recipient Understood Notice: Recipient Signature: Med Rec Note Co-signed by Attending: Coverage Notice Comment: Reviewer: [id number] Edwards Notice Issued Date-Time: 02/15/2019 14:00 Notice Type: IM Discharge Notice Notice Delivered To: Patient Relationship to Patient: Cloth Classer Name: Delivery Method: HAND - Hand Delivered Gail Days: Prior Verbal Notification: Recipient Understood Notice: Yes Recipient Signature: Yes Med Rec Note Co-signed by Attending: Coverage Notice Comment: Last DP export: 02/28/19 2:46 pm Patient Name: VINI CHACON Page [id number] at 1556 All edits/amendments must be made on the electronic document DICTATION DATE: 02/28/19 1555 MARITIME GUARD: KIM 02/28/19 1555 RPT#: [id number] DC DATE: STATUS: ADM IN [facility] [address] [place] [address] END OF REPORT
--- NOTE | 2019-02-28 18:43 | NUR ---
DISCHARGE INSTRUCTIONS,STATES UNDERSTANDING. IV DCD WITH CATH TIP INTACT.WAITING ON RIDE FOR TRANSPORT HOME
--- NOTE | 2019-02-28 19:18 | NUR ---
PT TRANSPORTED DOWNSTAIRS TO [facility] HOME VIA WHEELCHAIR
--- NOTE | 2019-03-03 08:35 | MORECARE ---
CASE MANAGEMENT DISCHARGE SUMMARY PATIENT: VINI CHACON UNIT: [id number] ADM DATE: 02/01/19 AGE: 68 : 50 SEX: F ROOM/BED: D.2222 AUTHOR: JACQUELIN,DOC PHYSICIAN: REFERRING PHYSICIAN: SHINE FLORES MD DATE OF SERVICE: 03/03/19 Discharge Plan Patient Name: VINI CHACON Facility: [facility]:[place] : 1950 Planned Disposition: Home Anticipated Discharge Date: Discharge Date: 02/28/2019 Expected LOS: 0 Initial Reviewer: [id number] Initial Review Date: 02/01/2019 Generated: 03/03/19 9:35 am Comments DCP- Discharge Planning Updated by [id number]: Sylvia Monetmontez on 02/28/19 2:[address] Spoke with James with [facility] and informed him the patient is going home today. James states he has not ran her benefits yet, but he will follow up with her. CM will continue to follow up and assist with discharge planning/needs. DCP- Discharge Planning Updated by [email or web address]: Sylvia Dionicio on 02/28/19 2:[address] Orders received for discharge. I spoke with Beronica at [facility] and they will see her tomorrow. Her mother is at bedside. CM will continue to follow and assist with discharge planning/needs. DCP- Discharge Planning Updated by [id number]: Sylvia Dionicio on 02/24/19 1:[address] Spoke with patient today, she still states she would like to go home with home health when the physician states she can go home. She does not want rehab. I called [facility] and spoke with Beronica and clinical faxed. I told Beronica that she is nearing discharge. CM will continue to follow and assist with discharge planning/needs. DCP- Discharge Planning Updated by [id number]: Pamela Edwards on 02/15/19 1:[address] Spoke with patient and mother and she stated that she wanted to go home with home health and did not want to go to rehab. [facility] with [facility], she also inquired about help at home. Information given and OMAR with [facility]. I will fax clinical information to both places. IMM served and explained. CM will continue to follow and assist with dc planning DCP- Discharge Planning Updated by [id number]: Marla Padilla on 02/07/19 11:[address] Patient Name: VINI CHACON Admission Status: ER Accout number: [id number] Admission Date: 02-01-2019 : 1950 Admission Diagnosis:SEPSIS, UNSPECIFIED ORGANISM Attending: SHINE FLORES Current LOS: 7 Anticipated DC Date: Planned Disposition: Home Primary Insurance: [facility] MEDICARE SOLUTIONS Discharge Planning Comments: CM met with patient at bedside after explaining CM role and obtaining verbal consent. Patient lives at home with her Mother and plans to return there upon discharge. Patient feels this would be a safe discharge. CM discussed availability / needs of home health and medical equipment. Patient did state she had home health services in the past, but can't recall the name. Patient states her Mother will know but she doesn't want to use that company again. OMAR form not signed at this time. CM will continue to follow and assist as needed with discharge planning / needs. Wheel Cleaner: Marla Padilla DCPIA - Discharge Planning Initial Assessment Updated by [email or web address]: Marla Padilla on 02/08/19 12:17 am * Is the patient Alert and Oriented? Yes * How many steps to enter\exit or inside your home? RAMP * PCP GRACIELA * Pharmacy CAN'T REMEMBER NAME * Preadmission Environment Home with Family * ADLs Independent * Other Equipment SHOWER CHAIR, BSC, WHEELCHAIR, WALKER * List name and contact numbers for known caregivers / representatives who currently or will assist patient after discharge: TULIO CAMPOS - MOTHER- [phone] * Verbal permission to speak to the caregivers and representatives has been obtained from the patient. Yes * Community resources currently utilized None * Additional services required to return to the preadmission environment? No * Can the patient safely return to the preadmission environment? Yes * Has this patient been hospitalized within the prior 30 days at any hospital? No Coverage Notice Reviewer: [id number] Arron Edwards Notice Issued Date-Time: 02/15/2019 14:00 Notice Type: IM Discharge Notice Notice Delivered To: Patient Relationship to Patient: Assembly Repairer Name: Delivery Method: HAND - Hand Delivered Gail Days: Prior Verbal Notification: Recipient Understood Notice: Yes Recipient Signature: Yes Med Rec Note Co-signed by Attending: Coverage Notice Comment: Reviewer: [id number] - Pamela Edwards Notice Issued Date-Time: 02/15/2019 14:00 Notice Type: Patient Choice Letter Notice Delivered To: Patient Relationship to Patient: Assembly Repairer Name: Delivery Method: - Gail Days: Prior Verbal Notification: Recipient Understood Notice: Recipient Signature: Med Rec Note Co-signed by Attending: Coverage Notice Comment: Reviewer: [id number] - Sylvia Greenberg Notice Issued Date-Time: 02/28/2019 15:37 Notice Type: IM Discharge Notice Notice Delivered To: Patient Relationship to Patient: Self Assembly Repairer Name: Delivery Method: HAND - Hand Delivered Gail Days: Prior Verbal Notification: Recipient Understood Notice: Yes Recipient Signature: Yes Med Rec Note Co-signed by Attending: Coverage Notice Comment: IMM explained, signed, given, copy placed in MR Last DP export: 02/28/19 2:56 pm Patient Name: VINI CHACON Page 80026 at 0835 All edits/amendments must be made on the electronic document DICTATION DATE: 03/03/19833 HELICOPTER DISPATCHER: KIM 03/03/1934 RPT#: [id number] DC DATE:02/28/19 STATUS: DIS IN [facility] [address] [place] [address] END OF REPORT
== END 2019-02-28 19:19 | disposition home health service (06) | DRG 871 ==
LOC: D.ER 09:33 → D.MS 14:45 → D.EDHOLD 14:45 → D.ICU 14:45 → D.MS 15:44 → D.ICU 02-04 21:47 → D.M3 02-07 21:31 → D.MS 02-11 18:18 → D.ICU 02-17 21:14 → D.MS 02-19 14:49
PROVIDERS: Family Medicine; General Practice; Internal Medicine Gastroenterology; Internal Medicine Hematology & Oncology; ADMIT Internal Medicine Nephrology; ATTEND Internal Medicine Nephrology
PROC: 0DB78ZX Excision of Stomach, Pylorus, Via Natural or Artificial Opening Endoscopic, Diagnostic (ICD-10-PCS; 2019-02-08)
PROC: 0DB68ZX Excision of Stomach, Via Natural or Artificial Opening Endoscopic, Diagnostic (ICD-10-PCS; principal; 2019-02-08 14:30)
PROC: 0W3P8ZZ Control Bleeding in Gastrointestinal Tract, Via Natural or Artificial Opening Endoscopic (ICD-10-PCS; 2019-02-22)
DX: A41.9 Sepsis, unspecified organism (principal); K85.90 Acute pancreatitis without necrosis or infection, unspecified; K29.01 Acute gastritis with bleeding; K55.21 Angiodysplasia of colon with hemorrhage; N17.0 Acute kidney failure with tubular necrosis; N39.0 Urinary tract infection, site not specified; I50.20 Unspecified systolic (congestive) heart failure; K92.0 Hematemesis; D62 Acute posthemorrhagic anemia; K55.1 Chronic vascular disorders of intestine; I69.354 Hemiplegia and hemiparesis following cerebral infarction affecting left non-dominant side; N28.9 Disorder of kidney and ureter, unspecified; R53.1 Weakness; I11.0 Hypertensive heart disease with heart failure; I25.10 Atherosclerotic heart disease of native coronary artery without angina pectoris; I73.9 Peripheral vascular disease, unspecified; Z89.612 Acquired absence of left leg above knee; E78.5 Hyperlipidemia, unspecified; K31.89 Other diseases of stomach and duodenum; I70.8 Atherosclerosis of other arteries; I69.392 Facial weakness following cerebral infarction; I69.322 Dysarthria following cerebral infarction

== ENCOUNTER → 2019-04-05 07:59 | Outpatient (CLI) | payer MEDICARE, MEDICAID ==
[2019-02-20 17:56] VITALS: BMI 21.2
[~2019-04-05 07:59] MED LIST changes: +CARAFATE1 G PO; +FOLIC ACID1 MG PO; +MIRALAX17 GM PO; +PEPCID40 MG PO; +PROTONIX40 MG PO
== END | disposition home or self-care (01) ==
LOC: D.CT 03-31 14:00
PROVIDERS: ATTEND General Practice
DX: I73.9 Peripheral vascular disease, unspecified (principal); M79.675 Pain in left toe(s); M79.674 Pain in right toe(s)

== ENCOUNTER 2019-05-23 16:14 | Inpatient (IN) | payer MEDICARE, MEDICAID ==
[~2019-05-23] VITALS: Ht 162.6 cm; Wt 43.0 kg
[2019-05-23] MEDS ORDERED: PLAVIX75 MG PO (16:25)
[2019-05-23 16:31] VITALS: BP 124/62
--- NOTE | 2019-05-23 17:02 | NUR ---
OCCULT BLOOD STOOL SAMPLE POSITIVE. TREATING PROVIDER NOTIFIED.
[2019-05-23 17:23] LABS: BASOPHILS 0.2 % (0-2); EOSINOPHILS 0.3 % (0-7); HEMATOCRIT 36.7 % (36.0-48.0); HEMOGLOBIN 12.3 g/dL (12-16); IMMATURE GRANULOCYTES 0.5 % (0-5); LYMPHOCYTES 29.8 % (15-50); MCH 31.3 pg (26.0-34.0); MCHC 33.5 g/dL (31.0-37.0); MCV 93.4 fL (80.0-100.0); MEAN PLATELET VOLUME 11.3 fL (7.4-10.4); MONOCYTES 5.7 % (2-11); NEUTROPHILS 63.5 % (40-80); PLATELET COUNT 338 10x3/uL (130-400); RBC 3.93 10x6/uL (4.00-5.40); RDW 14.3 % (11.5-14.5); WBC 16.5 10x3/uL (4.8-10.8)
--- NOTE | 2019-05-23 17:24 | NUR ---
PER EDP, PT MAY HAVE LIQUIDS ONLY PO AND IS TO BE NPO AT MIDNIGHT TONIGHT. PT VOICED UNDERSTANDING.
[2019-05-23 17:30] VITALS: BP 136/57
[2019-05-23 17:41] LABS: ALBUMIN 3.8 g/dL (3.4-5.0); ANION GAP 20.9 mmol/L (8-16); BILIRUBIN - TOTAL 0.28 mg/dL (0.2-1.3); CALCIUM 10.2 mg/dL (8.5-10.1); POTASSIUM - SERUM 3.9 mmol/L (3.5-5.1); PROTEIN - SERUM 7.5 g/dL (6.4-8.2)
[2019-05-23 17:45] LABS: INR 1.03 (0.85-1.17)
[2019-05-23 18:30] VITALS: BP 175/54
--- NOTE | 2019-05-23 18:48 | NUR ---
PT HAS BEEN ASSISTED WITH TRANSFERRING FROM BED TO BEDSIDE TOILET MULTIPLE TIMES SINCE ARRIVAL. BLANKETS HAVE BEEN PROVIDED FOR COMFORT WELL LIGHTS BEING DIMMED. CALL LIGHT IN REACH, PT AWARE SHE IS BEING ADMITTED TO [facility], AWAITING BED ASSIGNMENT.
--- NOTE | 2019-05-23 19:07 | NUR ---
HAND OFF REPORT GIVEN TO NAYELI LYLE
--- NOTE | 2019-05-23 19:46 | NUR ---
PATIENT ARRIVED TO FLOOR FROM ER VIA STRETCHER. PATIENT IS ALERT AND ORIENTED, RESPIRATIONS ARE EVEN AND UNLABORED. NO S/S OF DISTRESS. NO C/O PAIN. CALL LIGHT WITHIN REACH. WILL CPOC.
[2019-05-23] MEDS ORDERED: MIRALAX17 GM PO (20:09)
[2019-05-23 22:49] LABS: HEMOGLOBIN 11.5 g/dL (12-16)
[2019-05-24] VITALS (10 sets, daily range): BP systolic 97–165; BP diastolic 45–76; Ht 162.6 cm; Wt 43.0 kg
[2019-05-24 06:00] LABS: BASOPHILS 0.3 % (0-2); EOSINOPHILS 1.9 % (0-7); HEMATOCRIT 28.7 % (36.0-48.0); HEMOGLOBIN 9.8 g/dL (12-16); IMMATURE GRANULOCYTES 0.3 % (0-5); LYMPHOCYTES 41.3 % (15-50); MCH 31.6 pg (26.0-34.0); MCHC 34.1 g/dL (31.0-37.0); MCV 92.6 fL (80.0-100.0); MEAN PLATELET VOLUME 10.9 fL (7.4-10.4); MONOCYTES 9.2 % (2-11); PLATELET COUNT 271 10x3/uL (130-400); RDW 14.5 % (11.5-14.5)
--- NOTE | 2019-05-24 06:11 | NUR ---
PATIENT WAS UNABLE TO TOLERATE THE GOLYTELY. PATIENT DRANK APPROX. 960 ML. PATIENT VOMITED APPROX 180 ML
[2019-05-24 06:25] LABS: WBC 11.3 10x3/uL (4.8-10.8)
[2019-05-24 06:31] LABS: BILIRUBIN - TOTAL 0.22 mg/dL (0.2-1.3); CALCIUM 8.1 mg/dL (8.5-10.1); CREATININE - SERUM 1.7 mg/dL (0.6-1.3); MAGNESIUM - SERUM 1.5 mg/dL (1.8-2.4); PROTEIN - SERUM 5.7 g/dL (6.4-8.2)
[2019-05-24 06:32] LABS: ALBUMIN 2.6 g/dL (3.4-5.0); ANION GAP 16.2 mmol/L (8-16); POTASSIUM - SERUM 3.2 mmol/L (3.5-5.1)
--- NOTE | 2019-05-24 07:26 | NUR ---
PT RESTING, EYES CLOSED. RR EVEN AND UNLABORED. WILL CONTINUE TO MONITOR.
--- NOTE | 2019-05-24 08:55 | NUR ---
TAP WATER ENEMA GIVEN PER ORDER. PT TOLERATED PROCEDURE WELL.
--- NOTE | 2019-05-24 10:30 | NUR ---
I have reviewed this patient and I concur with the Shift Assessment completed by the Licensed Practical Nurse today this shift.
[2019-05-24 14:07] LABS: HEMOGLOBIN 9.4 g/dL (12-16)
--- NOTE | 2019-05-24 15:38 | NUR ---
PREOP COMPLETE. EKG COMPLETE AND PLACED ON CHART
--- NOTE | 2019-05-24 17:38 | NUR ---
RECIEVED REPORT FROM GI LAB AND UPDATED FAMILY
--- NOTE | 2019-05-24 17:55 | NUR ---
RECIEVED PT FROM GI LAB. VSS. PT DROWSY BUT EASILY AROUSED. DENIES NEEDS OR PAIN AT THIS TIME. WILL CONTINUE TO MONITOR.
--- NOTE | 2019-05-24 19:23 | NUR ---
RECEIVED PT. PROVIDED ICE WATER PER REQUEST. DENIES NEEDS NEEDS AT THIS TIME. NO S/S OF DISTRESS NOTED. CALL LIGHT IN REACH. WILL CPOC.
[2019-05-24 22:22] LABS: HEMATOCRIT 26.2 % (36.0-48.0); HEMOGLOBIN 8.9 g/dL (12-16)
--- NOTE | 2019-05-25 04:04 | NUR ---
ASSISTED PT TO BEDSIDE COMODE. X1 ASSIST. DENIES FURTHER NEEDS AT THIS TIME. NO S/S OF DISTRESS NOTED.
[2019-05-25 04:30] VITALS: BP 111/48
--- NOTE | 2019-05-25 05:52 | NUR ---
PLACED PT ON TELEMETRY PER ORDER. CURRENTLY RUNNY NORMAL SINUS 61.
[2019-05-25 06:09] LABS: BASOPHILS 0.4 % (0-2); EOSINOPHILS 2.4 % (0-7); HEMATOCRIT 26.8 % (36.0-48.0); HEMOGLOBIN 8.8 g/dL (12-16); IMMATURE GRANULOCYTES 0.1 % (0-5); LYMPHOCYTES 34.6 % (15-50); MCHC 32.8 g/dL (31.0-37.0); MCV 94.4 fL (80.0-100.0); MEAN PLATELET VOLUME 11.2 fL (7.4-10.4); NEUTROPHILS 53.5 % (40-80); PLATELET COUNT 245 10x3/uL (130-400); RBC 2.84 10x6/uL (4.00-5.40); RDW 14.6 % (11.5-14.5); WBC 9.6 10x3/uL (4.8-10.8)
[2019-05-25 06:53] LABS: ALBUMIN 2.7 g/dL (3.4-5.0); ANION GAP 17.5 mmol/L (8-16); BILIRUBIN - TOTAL 0.25 mg/dL (0.2-1.3); CALCIUM 8.7 mg/dL (8.5-10.1); CARBON DIOXIDE 18.8 mmol/L (21.0-32.0); CREATININE - SERUM 1.6 mg/dL (0.6-1.3); MAGNESIUM - SERUM 1.6 mg/dL (1.8-2.4); POTASSIUM - SERUM 4.3 mmol/L (3.5-5.1); PROTEIN - SERUM 5.6 g/dL (6.4-8.2)
--- NOTE | 2019-05-25 07:28 | NUR ---
AM ROUNDS- INTRODUCED SELF TO PT, AND WROTE NAME ON WHITE BOARD, PT A/O X4, RESP EVEN AND NONLABORED ON RA. RT FA IV INFUSING PROTONIX AT 10CC/HR, AND NS AT 100CC/HR. MONITOR SHOWING SR WITH RATE OF 60. LT BKA NOTED. PT SHELLEY ANY NEEDS AT THIS TIME, CALL LIGHT IN REACH, NAD NOTED, WILL CONTINUE PLAN OF CARE.
--- NOTE | 2019-05-25 08:57 | NUR ---
AM MEDS GIVEN AT THIS TIME. PT WATCHING TV, DENIES ANY NEEDS AT THIS TIME. CALL LIGHT IN REACH, NAD NOTED, WILL CONTINUE TO MONITOR.
[2019-05-25 08:58] VITALS: BP 108/42
[2019-05-25 12:30] VITALS: BP 134/49
--- NOTE | 2019-05-25 14:50 | MORECARE ---
CASE MANAGEMENT DISCHARGE SUMMARY PATIENT: VINI CHACON UNIT: [id number] ADM DATE: 05/23/19 AGE: 68 : 50 SEX: F ROOM/BED: D.4202 AUTHOR: JACQEULIN,DOC PHYSICIAN: REFERRING PHYSICIAN: SHINE FLORES MD DATE OF SERVICE: 05/25/19 Discharge Plan Patient Name: VINI CHACON Facility: [facility]:[place] : 1950 Planned Disposition: Home Anticipated Discharge Date: 05/25/19 Discharge Date: Expected LOS: 2 Initial Reviewer: [email or web address] Initial Review Date: 05/25/2019 Generated: 05/25/19 3:50 pm Comments DCP- Discharge Planning Updated by [id number]: Harshad Astorga on 05/25/19 1:[address] Patient Name: VINI CHACON Admission Status: ER Accout number: [id number] Admission Date: 05-23-2019 : 1950 Admission Diagnosis:GASTROINTESTINAL HEMORRHAGE, UNSPECIFIED Attending: SHINE FLORES Current LOS: 2 Anticipated DC Date: 05-25-2019 Planned Disposition: Home Primary Insurance: [facility] MEDICARE SOLUTIONS Discharge Planning Comments: CM MET WITH PT IN ROOM TO DISCUSS DISCHARGE PLANNING AND NEEDS. PT REPORTS LIVING AT HOME INDEPENDENTLY WITH HER MOTHER. PT HAS WHEELCHAIR, SHOWER CHAIR AND ELECTRIC RECLINER WITH NO MEDICAL EQUIPMENT PROVIDER PREFERENCE. PT HAS NO OUTSIDE SERVICES ASSISTING IN THE HOME. CM DISCUSSED AVAILABILITY OF HOME HEALTH, REHAB SERVICES AND MEDICAL EQUIPMENT. PT DENIES DISCHARGE NEEDS, REPORTS SHE WILL BE GOING HOME WITH HER SISTER TO [place], [place]. PT'S MOTHER IS IN ROOM 2121 AFTER HAVING A CAR WRECK AND BOTH WILL BE PICKED UP BY PT'S SISTER AT DISCHARGE. IMPORTANT MESSAGE FROM MEDICARE PROVIDED AND EXPLAINED. PT PLANS TO GO HOME WITH HER SISTER AT DISCHARGE TO [facility]. PT DENIES DISCHARGE NEEDS AT THIS TIME. CM TO FOLLOW AND ASSIST NEEDED. Machine Stripper Cutter: Harshad Astorga DCPIA - Discharge Planning Initial Assessment Updated by [id number]: Harshad Astorga on 05/25/19 2:47 pm * Is the patient Alert and Oriented? Yes * How many steps to enter\exit or inside your home? RAMP * PCP DR OWENS * Pharmacy [facility], [place] * Preadmission Environment Home with Family * ADLs Independent * Equipment Other Shower Chair Wheelchair * Other Equipment POWER RECLINER NO MEDICAL EQUIPMENT PROVIDER PREFERENCE * List name and contact numbers for known caregivers / representatives who currently or will assist patient after discharge: TULIO LEO, MOTHER, * Verbal permission to speak to the caregivers and representatives has been obtained from the patient. N/A * Community resources currently utilized None * Please name any agencies selected above. NONE * Additional services required to return to the preadmission environment? No * Can the patient safely return to the preadmission environment? Yes * Has this patient been hospitalized within the prior 30 days at any hospital? No Coverage Notice Reviewer: [id number] Arron Astorga Notice Issued Date-Time: 05/25/2019 10:00 Notice Type: IM Discharge Notice Notice Delivered To: Patient Relationship to Patient: Accounts Payable Professional Name: Delivery Method: HAND - Hand Delivered Gail Days: Prior Verbal Notification: Recipient Understood Notice: Yes Recipient Signature: Yes Med Rec Note Co-signed by Attending: Coverage Notice Comment: Patient Name: VINI CHACON Page 10067 at 1450 All edits/amendments must be made on the electronic document DICTATION DATE: 05/25/191448 AERIAL INSTALLER: KIM 05/25/191448 RPT#: [id number] DC DATE: STATUS: ADM IN [facility] [address] [place] [address] END OF REPORT
[2019-05-25 14:54] LABS: HEMATOCRIT 26.8 % (36.0-48.0); HEMOGLOBIN 8.8 g/dL (12-16)
[2019-05-25 16:30] VITALS: BP 137/49
--- NOTE | 2019-05-25 18:50 | NUR ---
RT FA IV INFILTRATED, D/C IV WITH CATHETER TIP INTACT. NEW 22G IV STARTED TO RT FA X2 STICKS. PT TOLERATED PROCEDURE WELL.
--- NOTE | 2019-05-25 19:25 | NUR ---
REPORT RECIEVED AND ROUNDING COMPLETE. PATIENT SITTING UP IN BED, PATIENT IS ALERT AND ORIENTED X4. PATIENT HAS A LEFT BKA. PATIENT HAS A RIGHT FOREARM RUNNING PROTONIX AND NS, NO S/SX OF INFILTRATION. PATIENT HAS NO S/SX OF DISTRESS AT THIS TIME. PATIENT STATES HE HAS NO NEEDS AT THIS TIME. CALL LIGHT IS WITHIN REACH AND BED IS IN LOWEST LOCKED POSITION.
[2019-05-25 20:00] VITALS: BP 155/52
[2019-05-25 22:07] LABS: HEMATOCRIT 27.1 % (36.0-48.0); HEMOGLOBIN 9.2 g/dL (12-16)
[2019-05-26] VITALS: BP 133/62
[2019-05-26 04:00] VITALS: BP 134/73
[2019-05-26 06:33] LABS: ALBUMIN 2.6 g/dL (3.4-5.0); ANION GAP 14.1 mmol/L (8-16); BILIRUBIN - TOTAL 0.12 mg/dL (0.2-1.3); CALCIUM 8.4 mg/dL (8.5-10.1); CARBON DIOXIDE 21.1 mmol/L (21.0-32.0); CREATININE - SERUM 1.5 mg/dL (0.6-1.3); MAGNESIUM - SERUM 1.8 mg/dL (1.8-2.4); POTASSIUM - SERUM 4.2 mmol/L (3.5-5.1); PROTEIN - SERUM 5.5 g/dL (6.4-8.2)
[2019-05-26 07:41] LABS: BASOPHILS 0.3 % (0-2); EOSINOPHILS 2.7 % (0-7); HEMOGLOBIN 8.9 g/dL (12-16); IMMATURE GRANULOCYTES 0.3 % (0-5); LYMPHOCYTES 40.4 % (15-50); MCV 94.1 fL (80.0-100.0); MEAN PLATELET VOLUME 11.2 fL (7.4-10.4); MONOCYTES 9.2 % (2-11); NEUTROPHILS 47.1 % (40-80); PLATELET COUNT 242 10x3/uL (130-400); RBC 2.87 10x6/uL (4.00-5.40); RDW 14.6 % (11.5-14.5); WBC 7.4 10x3/uL (4.8-10.8)
[2019-05-26 12:30] VITALS: BP 140/45
--- NOTE | 2019-05-26 13:27 | NUR ---
Nutrition Follow-up: Pt reports tolerating PO intake with 75% eaten this AM. Diet: Regular PO intake: 63% avg over last 4 meals Last BM: 05/26 No new wt Labs noted: Alb 2.6, Ca 8.4, Glu 103 Meds noted: Carafate +Ensure with meals. [place] food preferences. RD following.
[2019-05-26 15:38] LABS: HEMATOCRIT 28.3 % (36.0-48.0); HEMOGLOBIN 9.6 g/dL (12-16)
--- NOTE | 2019-05-26 15:44 | NUR ---
PATIENT IS BEING DISCHARGED. ALL DISCHARGE PAPERS SIGNED AND EDUCATION COMPLETE. IV REMOVED FROM RIGHT FOREARM WITH CATHETER INTACT. PATIENT TOLERATED. PATIENT REMOVED ALL HER BELONGINGS FROM THE ROOM. SHE ISGOING BRUNA WITH A FAMILY MEMBER. SHE IS LEAVING THE FLOOR BY WHEELCHAIR. SHE HAS GOTTEN HER SHOWER, AND REPORTS SHE IS FEELING MUCH BETTER.
--- NOTE | 2019-05-26 15:55 | MORECARE ---
CASE MANAGEMENT DISCHARGE SUMMARY PATIENT: VINI CHACON UNIT: [id number] ADM DATE: 05/23/19 AGE: 68 : 50 SEX: F ROOM/BED: D.1247 AUTHOR: JACQUELIN,DOC PHYSICIAN: REFERRING PHYSICIAN: SHINE FLORES MD DATE OF SERVICE: 05/26/19 Discharge Plan Patient Name: VINI CHACON Facility: [facility]:[place] : 1950 Planned Disposition: Home Anticipated Discharge Date: 05/26/19 Discharge Date: Expected LOS: 3 Initial Reviewer: [id number] Initial Review Date: 05/25/2019 Generated: 05/26/19 4:55 pm DCP- Discharge Planning Updated by [email or web address]: Harshad Astorga on 05/25/19 1:[address] Patient Name: VINI CHACON Admission Status: ER Accout number: [id number] Admission Date: 05-23-2019 : 1950 Admission Diagnosis:GASTROINTESTINAL HEMORRHAGE, UNSPECIFIED Attending: SHINE FLORES Current LOS: 2 Anticipated DC Date: 05-25-2019 Planned Disposition: Home Primary Insurance: [facility] MEDICARE SOLUTIONS Discharge Planning Comments: CM MET WITH PT IN ROOM TO DISCUSS DISCHARGE PLANNING AND NEEDS. PT REPORTS LIVING AT HOME INDEPENDENTLY WITH HER MOTHER. PT HAS WHEELCHAIR, SHOWER CHAIR AND ELECTRIC RECLINER WITH NO MEDICAL EQUIPMENT PROVIDER PREFERENCE. PT HAS NO OUTSIDE SERVICES ASSISTING IN THE HOME. CM DISCUSSED AVAILABILITY OF HOME HEALTH, REHAB SERVICES AND MEDICAL EQUIPMENT. PT DENIES DISCHARGE NEEDS, REPORTS SHE WILL BE GOING HOME WITH HER SISTER TO [place], [place]. PT'S MOTHER IS IN ROOM 2121 AFTER HAVING A CAR WRECK AND BOTH WILL BE PICKED UP BY PT'S SISTER AT DISCHARGE. IMPORTANT MESSAGE FROM MEDICARE PROVIDED AND EXPLAINED. PT PLANS TO GO HOME WITH HER SISTER AT DISCHARGE TO [facility]. PT DENIES DISCHARGE NEEDS AT THIS TIME. CM TO FOLLOW AND ASSIST NEEDED. Director Of Occupational Health: Harshad Astorga DCPIA - Discharge Planning Initial Assessment Updated by [id number]: Harshad Astorga on 05/25/19 2:47 pm * Is the patient Alert and Oriented? Yes * How many steps to enter\exit or inside your home? RAMP * PCP DR OWENS * Pharmacy [facility] [place]. * Preadmission Environment Home with Family * ADLs Independent * Equipment Other Shower Chair Wheelchair * Other Equipment POWER RECLINER NO MEDICAL EQUIPMENT PROVIDER PREFERENCE * List name and contact numbers for known caregivers / representatives who currently or will assist patient after discharge: TULIO LEO, MOTHER, * Verbal permission to speak to the caregivers and representatives has been obtained from the patient. N/A * Community resources currently utilized None * Please name any agencies selected above. NONE * Additional services required to return to the preadmission environment? No * Can the patient safely return to the preadmission environment? Yes * Has this patient been hospitalized within the prior 30 days at any hospital? No Coverage Notice Reviewer: [id number] Arron Astorga Notice Issued Date-Time: 05/25/2019 10:00 Notice Type: IM Discharge Notice Notice Delivered To: Patient Relationship to Patient: Ticket Machine Operator Name: Delivery Method: HAND - Hand Delivered Gail Days: Prior Verbal Notification: Recipient Understood Notice: Yes Recipient Signature: Yes Med Rec Note Co-signed by Attending: Coverage Notice Comment: Last DP export: 05/25/19 1:50 pm Patient Name: VINI CHACON Page 46712 at 1555 All edits/amendments must be made on the electronic document DICTATION DATE: 05/26/191553 PCI SECURITY CONSULTANT: KIM 05/26/191553 RPT#: [id number] DC DATE: STATUS: ADM IN [facility] [address] [place] [address] END OF REPORT
--- NOTE | 2019-05-29 13:55 | CN ---
PATIENT NAME:VINI CHACON MEDICAL RECORD: [id number] : 50 LOCATION:[id number] ADMIT DATE: 05/23/19 ACCOUNT: [id number] CONSULTING PHYSICIAN: NIKOLE FUENTES MD REFERRING PHYSICIAN: SHINE FLORES MD DATE OF CONSULTATION: 05/26/2019 HISTORY OF PRESENT ILLNESS: A 68-year-old female well known to our service with a longstanding vascular history status post BKA as well as coronary artery bypass grafting, multiple interventions, although none recently, admitted with recurrent GI bleed, has been on dual antiplatelet therapy with Brilinta and aspirin. We are asked to see her concerning her anticoagulant/antiplatelet management. PAST MEDICAL HISTORY: Includes: 1. History of coronary artery disease, status post coronary artery bypass grafting. 2. Cardiomyopathy, ischemic in origin. 3. Peripheral vascular disease status post BKA as well as intervention. 4. Hypertension. 5. Hyperlipidemia. 6. Obstructive pulmonary disease with long-term smoking history. SOCIAL HISTORY: She is a nondrinker. Quit smoking previously. Needs help with her ADLs. ALLERGIES: INCLUDES BACTRIM. MEDICATIONS: Typically include Brilinta 90 b.i.d., carvedilol 3.125 every day, Benicar 20 every day, aspirin 81 every day, Celexa 40 mg p.o. daily, and Ativan 2 mg p.o. q.h.s. PHYSICAL EXAMINATION: GENERAL: Pleasant female in no acute distress. VITAL SIGNS: Blood pressure 133/62, pulse 60 and regular. HEENT: Normocephalic, atraumatic. NECK: No JVD or bruit. HEART: Regular, II/ systolic ejection murmur. LUNGS: Prolonged respiratory phase. No active wheezing. ABDOMEN: Soft, nontender. EXTREMITIES: Pulses are decreased in the left. Well healed scar on the right. IMPRESSION: Recurrent bleeding, obviously exacerbated by dual antiplatelet therapy. Would hold these agents currently. No intervention recently. Long-term low dose NOACs such as Xarelto 2.5 every day, maintenance dose of Brilinta 60 b.i.d. Further recommendations based on clinical course. TRANSINT:[id number] Voice Confirmation ID: [id number] DOCUMENT ID: [id number] CONSULT REPORT [id number] VINI CHACON NIKOLE FUENTES MD at 1355 CC: [id number] DICTATION DATE: 05/26/19 1207 CASINO WORKER: 05/26/19 1240 DIS IN 05/26/19 [place] [id number] [place] [id number]
== END 2019-05-26 17:50 | disposition home or self-care (01) | DRG 377 ==
LOC: D.ER 16:14 → D.M2 19:05
PROVIDERS: Emergency Medicine; Family Medicine; Internal Medicine Gastroenterology; ADMIT Internal Medicine Nephrology; ATTEND Internal Medicine Nephrology
PROC: 0DJD8ZZ Inspection of Lower Intestinal Tract, Via Natural or Artificial Opening Endoscopic (ICD-10-PCS; 2019-05-24)
PROC: 0DJ08ZZ Inspection of Upper Intestinal Tract, Via Natural or Artificial Opening Endoscopic (ICD-10-PCS; principal; 2019-05-24 16:00)
DX: K25.4 Chronic or unspecified gastric ulcer with hemorrhage (principal); E43 Unspecified severe protein-calorie malnutrition; K55.1 Chronic vascular disorders of intestine; I50.22 Chronic systolic (congestive) heart failure; N17.9 Acute kidney failure, unspecified; D62 Acute posthemorrhagic anemia; I69.351 Hemiplegia and hemiparesis following cerebral infarction affecting right dominant side; Z68.1 Body mass index [BMI] 19.9 or less, adult; K21.9 Gastro-esophageal reflux disease without esophagitis; I11.0 Hypertensive heart disease with heart failure; F32.9 Major depressive disorder, single episode, unspecified; F41.9 Anxiety disorder, unspecified; E83.52 Hypercalcemia; E78.5 Hyperlipidemia, unspecified; I25.10 Atherosclerotic heart disease of native coronary artery without angina pectoris; K29.70 Gastritis, unspecified, without bleeding; Z89.612 Acquired absence of left leg above knee; Z87.891 Personal history of nicotine dependence